=== PATIENT | male | born 1935 | race Caucasian/White ===

== ENCOUNTER → 2019-08-27 11:04 | Outpatient (CLI) | payer MEDICARE, SELFPAY ==
[2016-03-15 00:27] VITALS: BMI 30.1
--- NOTE | 2019-08-27 11:11 | RAD_ITS ---
STUDY: BONE LENGTH STUDIES. REASON FOR EXAM: Male, 83 years old. leg length difference TECHNIQUE: Single composite view of the bilateral lower extremities. COMPARISON: None. FINDINGS: Bilateral total knee arthroplasty. Mild degenerative arthrosis of the hips. Mild bilateral genu varum. The total length of the right lower extremity is 94 cm from the apex of the femoral head to the tibial plafond. The total length of the left lower extremity is 93 cm from the apex of the femoral head to the tibial plafond. RAD/Bone Length IMPRESSION: Right leg 1 cm longer than the left leg. Electronically Signed: Bernarda Ramos MD at 22:24 EDT , Service support ,
== END ==
PROVIDERS: PCP Family Medicine; Referring Provider Podiatrist; Visit Provider Podiatrist
DX: M21.70 Unequal limb length (acquired), unspecified site (principal)
CPT/HCPCS: 77073

== ENCOUNTER 2020-03-04 10:18 | Inpatient (IN) | payer MEDICARE, SELFPAY ==
[2020-03-04] VITALS (18 sets, daily range): BP systolic 109–156; BP diastolic 55–94; PULSE 74–93; RESP 12–40; TEMP 36.1–39.6; O2SAT 84–100; BMI 30.4; BMI 28.9
--- NOTE | 2020-03-04 10:34 | EKG12_ITS ---
Test Reason : CP Blood Pressure : / mmHG Vent. Rate : 095 BPM Atrial Rate : 095 BPM P-R Int : 168 ms QRS Dur : 164 ms QT Int : 404 ms P-R-T Axes : 035 -88 019 degrees QTc Int : 507 ms Normal sinus rhythm Left axis deviation Right bundle branch block Inferior infarct , age undetermined Abnormal ECG Confirmed by MILTON SPANGLER, SHANTI ([id number]), scientific publications editor MEGGAN MYRICK ([id number]) on 03/10/2020 8:47:21 AM Referred By: TOMMY Confirmed By:SHANTI ROSE MD
--- NOTE | 2020-03-04 10:37 | ED.VIS.DYS ---
History of Present Illness Informant: Patient, EMS Onset: Days - a few days Activity at onset: Exertion, Light Activity, Rest, Sleep Timing: Continuous Quality: Dyspnea on exertion, Orthopnea Current Severity: Severe Maximum Severity: Severe Worsened by: Coughing, Exertion, Lying flat Relieved by: Oxygen Associated Symptoms: Chills, Cough, Fever, Sore throat, Sweats. Negative for: Bloody Sputum, Clear sputum, Ear pain, Green sputum, Post-nasal drainage, Rhinorrhea, White sputum, Yellow sputum Chest Pain: Tightness Narrative: 84-year-old male history of CAD and COPD presents with shortness of breath. He was hypoxic on arrival 84% on room air and placed on 4 L nasal cannula. He is not normally on oxygen. Started to have a fever and chills this morning with rigors. He feels generally weak and tired. No vomiting or diarrhea. No hemoptysis. Denies any sick contacts recent travel or surgery or history of DVT or PE. He has COPD but he states he is never qualified for oxygen. This is been progressively worsening over the last several days. Was sent in from his PCP office today Prior similar symptoms: No Recent Illness/Hospitalization: No <Buddy Brock - Last Filed: 03/04/20 15:18> <Sumit Tompkins - Last Filed: 03/04/20 15:59> Chief Complaint: General Illness Past Medical History Prior records reviewed: Yes Past Medical History: - - Hypertension hyperlipidemia COPD CAD Surgical History: coronary bypass surgery Lives: With Family Smoking Status: Never smoker Alcohol: None Drugs: None - Family History Sibling Family History: Reports: No pertinent history <Buddy Brock - Last Filed: 03/04/20 15:18> <Sumit Tompkins - Last Filed: 03/04/20 15:59> - Allergies and Home Meds Allergies/Adverse Reactions: Allergies No Known Allergies Allergy (Verified 03/14/16 20:08) Review of Systems General: Reports: Chills, Fever. Denies: Sweats Eyes: Denies: Visual changes - bilaterally, Diplopia ENT: Denies: Rhinorrhea, Sore throat Cardiovascular: Denies: Chest pain, Palpitations, Heart racing Respiratory: Reports: Dyspnea, Cough, Dyspnea on exertion, Orthopnea. Denies: Sputum, Paroxysmal nocturnal dyspnea Gastrointestinal: Denies: Abdominal pain, Nausea, Vomiting, Diarrhea, Melena, Hematochezia Genitourinary: Denies: Dysuria, Hematuria, Frequency Musculoskeletal: Reports: Myalgias. Denies: Arthralgias, Neck pain, Back pain, Swelling, Extremity Pain Skin: Denies: Rash, Abscess, Abrasions, Wounds Neurological: Denies: Headache, Weakness, Numbness <Buddy Brock - Last Filed: 03/04/20 15:18> Physical Exam Vital Signs/Narrative: Vital Signs Temp Pulse Resp BP Pulse Ox 03/04/20 10:19 103.2 F H 93 40 H 156/94 H 84 Inital Vital Signs reviewed: Yes General: Well nourished, Well developed, No Acute Distress Head: Normocephalic, Atraumatic Eyes: Perrl, EOMI ENT: Moist mucous membranes, No rhinorrhea Neck: Supple, Nontender Cardiovascular: Regular rate, Regular rhythm, No murmurs Respiratory: No distress, CTA bilaterally, Diminished, Decreased Air Movement Abdomen: Soft, Nontender, Nondistended, Normal bowel sounds Back: Nontender, Normal Inspection Extremities: Nontender, No edema. Negative for: Tenderness, Edema, Calf Tenderness Skin: Normal color, No rash Neurological: Alert, Oriented x3, Cranial nerves II-XII grossly intact, Normal Strength, Normal Sensation Psychological: Normal affect, Normal Mood <Buddy Brock - Last Filed: 03/04/20 15:18> Vital Signs/Narrative: Vital Signs Temp Pulse Resp BP Pulse Ox 03/04/20 14:03 97.7 F L 82 20 H 139/76 H 97 03/04/20 13:13 83 20 H 154/77 H 96 03/04/20 12:03 99.5 F H 82 30 H 142/78 H 94 <Sumit Tompkins - Last Filed: 03/04/20 15:59> Diagnostic/Tx/Re-eval Chest X-Ray - ED: 1 View, Right Infiltrate, Left Infiltrate Impressions Chest X-Ray 03/04/20 11:25 IMPRESSION: Small left pleural effusion with bibasilar infiltrates worse on the left side. Electronically Signed: Smith Rosenbaum, at 12:07 EST , Service support , 03/04/20 11:25 Chest 1 View (Portable) [RAD] Stat Laboratory Results 03/04/20 03/04/20 03/04/20 10:30 10:30 10:30 WBC 12.1 H RBC 4.53 L Hgb 13.4 Hct 43.6 MCV 96.2 H MCH 29.6 MCHC 30.7 L RDW Std Deviation 47.8 H RDW Coeff of Becca 13.4 Plt Count 220 MPV 10.7 Immature Gran % (Auto) 0.600 Neut % (Auto) 89.3 H Lymph % (Auto) 4.8 L [place] % (Auto) 5.1 Eos % (Auto) 0.0 Baso % (Auto) 0.2 Absolute Neuts (auto) 10.8 H Absolute Lymphs (auto) 0.58 L Nucleated RBC % 0 Differential Comment COMMENT PT 14.3 INR 1.2 APTT 32.5 Sodium 139 Potassium 3.8 Chloride 100 Carbon Dioxide 34.0 H Anion Gap 5 BUN 40 H Creatinine 1.79 H Estim Creat Clear Calc 30.25 Est GFR (MDRD) Af Amer 47 L Est GFR (MDRD) Non-Af 39 L BUN/Creatinine Ratio 22.3 H Glucose 139 H Lactic Acid Calcium 8.6 Total Bilirubin 0.70 AST 41 H ALT 39 Alkaline Phosphatase 62 Troponin I 0.072 H Total Protein 7.4 Albumin 3.3 Globulin 4.1 Albumin/Globulin Ratio 0.8 L COVID-19 (NILDA) 03/04/20 03/04/20 11:05 11:54 WBC RBC Hgb Hct MCV MCH MCHC RDW Std Deviation RDW Coeff of Becca Plt Count MPV Immature Gran % (Auto) Neut % (Auto) Lymph % (Auto) [place] % (Auto) Eos % (Auto) Baso % (Auto) Absolute Neuts (auto) Absolute Lymphs (auto) Nucleated RBC % Differential Comment PT INR APTT Sodium Potassium Chloride Carbon Dioxide Anion Gap BUN Creatinine Estim Creat Clear Calc Est GFR (MDRD) Af Amer Est GFR (MDRD) Non-Af BUN/Creatinine Ratio Glucose Lactic Acid 1.4 Calcium Total Bilirubin AST ALT Alkaline Phosphatase Troponin I Total Protein Albumin Globulin Albumin/Globulin Ratio COVID-19 (NILDA) Detected - Rhythm Strip Rhythm Strip: Sinus Rhythm Rate: 99 Ectopy: None - EKG Initial EKG Interpretation: Sinus Rhythm, No Acute Injury Pattern, RBBB Prior: Unchanged Treatment - Dyspnea: Oxygen - Medical Decision Making On arrival the patient was febrile and hypoxic. He was placed on 4 L nasal cannula with improvement of his pulse ox. He was given IV fluids and Tylenol. Septic work-up was pursued. Laboratory work-up was remarkable for an elevated troponin, acute kidney injury, chest x-ray showed bilateral infiltrates and his Covid was positive. Patient was given fluids he is hemodynamically stable he will require admission. Family updated. <Buddy Brock - Last Filed: 03/04/20 15:18> - Medical Decision Making Patient was seen with me. I did a [id number] examination with the patient. Patient presents with shortness of breath and weakness that has been getting worse. Patient is a poor historian. Patient is nonverbal. Patient was noted to be hypoxic prior to arrival. EMS placed patient on oxygen. Patient is febrile here. Patient is hypoxic. Patient was placed on 4 L nasal cannula. Patient's oxygen improved. Oral mucosa is pink and moist. Neck is supple. Trachea is midline. There is no JVD or lymphadenopathy. Heart was regular rate and rhythm. Lungs are diminished bilaterally. There is poor respiratory effort noted. Abdomen is soft. Bowel sounds are normal. Cranial nerves II through XII are grossly intact. There are no apparent focal motor or sensory deficits noted. Patient was given IV fluids and Tylenol. Metabolic profile showed acute kidney injury. Troponin was also slightly elevated. Portable 1 view chest x-ray was obtained. On my interpretation, it shows bilateral lower lobe infiltrates. Radiologist also interpreted the x-ray and agrees. COVID-19 test was obtained and was positive. Case was discussed with the hospitalist. Patient will be admitted to the hospital. Family was notified. Family agrees. <Sumit Tompkins - Last Filed: 03/04/20 15:59> ED Disposition <Buddy Brock - Last Filed: 03/04/20 15:18> <Sumit Tompkins - Last Filed: 03/04/20 15:59> - Plan for ED Patient: Disposition: Acute Care Hospital [facility] Diagnosis: Pneumonia due to COVID-19 virus, Respiratory failure, FREDY (acute kidney injury)
[2020-03-04 11:01] LABS: Absolute Lymphocyte Count 0.58 X10^3/uL (0.83-4.51); Absolute Neutrophil Count 10.8 X10^3/uL (2.0-7.7); Basophil# 0.02 X10^3/uL; Basophil% 0.2 % (0-1); Hematocrit 43.6 % (40-54); Hemoglobin 13.4 g/dL (13.0-16.5); Lymphocyte # 0.58 X10^3/ul (4.0); Lymphocyte % 4.8 % (19-41); Mean Corp Hgb Conc 30.7 g/dL (32-36); Mean Corpuscular Hgb 29.6 pg (27.0-32.0); Mean Corpuscular Volume 96.2 fL (80-94); Mean Platelet Vol. 10.7 fl (6.2-12.0); Monocyte# 0.62 X10^3/uL; Monocyte% 5.1 % (0-10); NRBC Flagged by Analyzer 0 % (0-5); Neutrophil # 10.78 X10^3/uL (2.7-7.7); Neutrophil % 89.3 % (47-70); POSITIVE DIFFERENTIAL YES; Platelet Count 220 K/mm3 (150-450); RBC Distribution Width CV 13.4 % (11.6-14.6); RBC Distribution Width SD 47.8 fl (35.1-43.9); Red Blood Count 4.53 M/mm3 (4.6-6.2); White Blood Count 12.1 K/mm3 (4.4-11.0)
[2020-03-04 11:02] LABS: Differential Indicated SCAN CRITERIA MET
[2020-03-04 11:09] LABS: International Normalized Ratio 1.2; Prothrombin Time (Protime)PT. 14.3 SECONDS (11.7-14.9)
[2020-03-04 11:10] LABS: Partial Thromboplast Time 32.5 Seconds (24.1-36.2)
[2020-03-04] MEDS: Acetaminophen 500 MG Tablet 1000 MG PO (11:14)
[2020-03-04] MEDS: 0.9% Normal Saline 1,000 ML 999 ML IV (11:14)
[2020-03-04 11:16] LABS: ALB/GLOB Ratio 0.8 RATIO (0.9-2.4); AST(SGOT) 41 U/L (15-37); Alanine Aminotransfer ALT/SGPT 39 U/L (16-61); Albumin, Serum 3.3 g/dL (3.2-5.0); Alkaline Phosphatase 62 U/L (45-117); Anion Gap 5 (5-15); BUN 40 mg/dL (7-18); BUN/Creat Ratio 22.3 RATIO (10-20); Calcium,Total 8.6 mg/dL (8.5-10.1); Chloride 100 mmol/L (98-107); Creatinine, Serum 1.79 mg/dL (0.70-1.30); EST Glomerular Filtration Rate 39 mL/min (>60); Est Glom Filt Rate - Afr Amer 47 mL/min (>60); Estimated Creatinine Clearance 30.25 ml/min; Globulin 4.1 g/dL (2.2-4.2); Glucose 139 mg/dL (74-106); Potassium 3.8 mmol/L (3.5-5.1); Protein, Total 7.4 g/dL (6.4-8.2); Sodium Level 139 mmol/L (136-145)
--- NOTE | 2020-03-04 11:25 | RAD_ITS ---
STUDY: X-RAY CHEST REASON FOR EXAM: Male, 84 years old. LOW PULSE OX AND DECREASED MENTAL STATUS. COUGH. TECHNIQUE: Single AP portable view of the chest. COMPARISON: None. FINDINGS: EKG electrodes are seen. There is a small left pleural effusion with left basilar infiltrate. Mild right lower lobe infiltrate as well. There is borderline cardiomegaly. Left-sided dual-chamber pacemaker seen. Normal mediastinum and alberto. Normal visualized pulmonary arteries. There is atherosclerotic tortuosity of the aortic arch and descending thoracic aorta. There are diffuse degenerative changes of the visualized thoracic spine. There is degenerative osteoarthritis of the bilateral shoulders. There is no demonstrated abnormality of the visualized soft tissue structures of the upper abdomen. RAD/Chest 1 View (Portable) IMPRESSION: Small left pleural effusion with bibasilar infiltrates worse on the left side. Electronically Signed: Smith Rosenbaum, at 12:07 EST , Service support ,
[2020-03-04 12:19] LABS: Lactic Acid 1.4 mmol/L (0.4-1.9)
--- NOTE | 2020-03-04 14:20 | PCM.HP.STD ---
Problem List (1) Pneumonia due to COVID-19 virus Status: Acute (2) FREDY (acute kidney injury) Status: Acute (3) Acute respiratory failure with hypoxia Status: Acute (4) CAD (coronary artery disease) Status: Chronic Qualifiers: Coronary Disease-Associated Artery/Lesion type: unspecified vessel or lesion type [place] vs. transplanted heart: unspecified whether [place] or transplanted heart Associated angina: angina presence unspecified Qualified Code(s): I25.10 - Atherosclerotic heart disease of [place] coronary artery without angina pectoris (5) Dementia Status: Chronic Qualifiers: Dementia type: unspecified type Dementia behavioral disturbance: without behavioral disturbance Qualified Code(s): F03.90 - Unspecified dementia without behavioral disturbance (6) Diabetes mellitus, type II Status: Suspected Qualifiers: Diabetes mellitus senior living insulin use: unspecified senior living insulin use status Diabetes mellitus complication status: with other specified complication Qualified Code(s): E11.69 - Type 2 diabetes mellitus with other specified complication (7) Seizure disorder Status: Chronic (8) HTN (hypertension) Status: Chronic Qualifiers: Hypertension type: essential hypertension Qualified Code(s): I10 - Essential (primary) hypertension (9) HLD (hyperlipidemia) Status: Chronic Qualifiers: Hyperlipidemia type: unspecified Qualified Code(s): E78.5 - Hyperlipidemia, unspecified (10) Former tobacco use Status: Suspected (11) Chronic obstructive pulmonary disease (COPD) Status: Suspected Qualifiers: COPD type: unspecified COPD Qualified Code(s): J44.9 - Chronic obstructive pulmonary disease, unspecified (12) JAMIE (obstructive sleep apnea) Status: Chronic (13) Depression with anxiety Status: Chronic History of Present Illness Date of Admission: 03/04/20 Chief Complaint: Confusion, dyspnea, hypoxia, cough. The patient is an 84 y/o M w/ PMHx: Chronic COPD not on home O2, ? CAD s/p PA s/p pacemaker placement, Seizure disorder (Focal), ? Former Tobacco use, Dementia unclear type with unclear behavioral disturbance history, HTN, HLD, JAMIE, Depression and Anxiety, Diabetes mellitus type II who presents to the [facility] ED on 03/04/20 from his physician office secondary to worsened mental status with increased confusion, hypoxia, cough, worse with exertion and laying flat with fever, chills, rigors per description, sore throat, diaphoresis/sweats and concurrent chest tightness. He notes significant fatigue and malaise, worse upon awakening this AM. The patient per report has been around a friend who also had COVID. Work-up in the ED included initial T 103.2, heart rate 93, BP 156/94, respiratory rate 40, initially 84% on room air with improvement to 96% on 4 L nasal cannula, CBC with WC 12.1, hemoglobin 13.4, platelet 220 with left shift and lymphopenia concurrently, unremarkable coags, CMP with carbon oxide 34, BUN/creatinine 40/1.79, glucose 139, lactic acid 1.4, AST/LT 41/39, troponin 0.072, blood culture x2 pending per ED, chest x-ray with small left pleural effusion with bibasilar infiltrates worse on the left side, EKG with SR with RBBB similar to prior, Covid positive per ED PCR testing. Past Medical History Past Medical History (Chronic Problems): Chronic Problems CAD (coronary artery disease) (Chronic) Dementia (Chronic) Seizure disorder (Chronic) HTN (hypertension) (Chronic) HLD (hyperlipidemia) (Chronic) JAMIE (obstructive sleep apnea) (Chronic) Depression with anxiety (Chronic) Allergies No Known Allergies Allergy (Verified 03/14/16 20:08) Home Medications: Ambulatory Orders Medication Instructions Recorded Lamotrigine 100 mg PO BID 03/04/20 Surgical History: - - Back surgery, pacemaker secondary to some syncopal history, shoulder surgery with rotator cuff repair, bilateral total knee replacement. Psychiatric History: Anxiety, Depression Lives: Alone Smoking Status: Never smoker - Patient listed is a tobacco user in the past however daughter Tala notes that he was never a smoker. Tobacco Use: Non-smoker Alcohol: None Drugs: None - *Family History Sibling History Items: Hypertension Paternal History Items: Hypertension Review of Systems Unable to obtain accurate/complete ROS d/t: Encephalopathic, information per family. Comment: ROS per family with increased confusion, hypoxia, cough, worse with exertion and laying flat with fever, chills, rigors per description, sore throat, diaphoresis/sweats and concurrent chest tightness. VTE Information - Inpt Only VTE Present on Admission: No VTE Mechan Device Prophylaxis: SCD's VTE Pharm Prophylaxis ordered?: Yes Patient Problems: Active and Suspected Problems Pneumonia due to COVID-19 virus (Acute) Respiratory failure (Acute) FREDY (acute kidney injury) (Acute) Subjective: Patient seated upright in ED bed, fatigued, lethargic, arousable to stimuli but falls quickly back asleep, some increased respiratory rate and accessory muscle usage. Objective: Physical Examination: General: Awakens somewhat to stimuli, not alert, not able to answer orientation questions, not able to follow commands, extremely fatigued, seated upright in ED bed, maintaining saturations but increased respiratory rate and some accessory muscle usage noted, evident distress. Skin: normal color, turgor, no icterus, cyanosis set occasional staged ecchymoses and right mckeon scab, no erythema associated. HEENT: AT/NC, EOM unable to be assessed well given lethargic status, PERRLA, dry MM, no carotid bruits or JVD noted. Lungs: Diminished breath sounds, greater bases, poor effort, increased respiratory rate and some accessory muscle usage with evident mild distress, no obvious rales, ronchi or wheezing. Heart: Regular rate and rhythm/paced; no gallop, rub audible. Abdomen: soft, obese, NTTP, ND, normal BS, no HSM. Extremities: no cyanosis, clubbing, or edema, see skin. Neurological: Awakens somewhat to stimuli, not alert, not able to answer orientation questions, not able to follow commands, extremely fatigued, seated upright in ED bed, maintaining saturations but increased respiratory rate and some accessory muscle usage noted, evident distress; cognitive function not baseline intact; pupils equally reactive to light and accomodation; cranial nerves 2/but appear grossly normal, moving all 4 extremities to stimuli but difficult assessment given lethargy, sedate status, strength accordingly severely globally decreased. Psychiatric: affect appears fatigued, lethargic, evident respiratory distress, no acute evidence of depressive or anxiety feelings. - Physical Exam Vitals/I&O's: Vital Signs Temp Pulse Resp BP Pulse Ox 97.7 F L 82 20 H 139/76 H 97 03/04/20 14:03 03/04/20 14:03 03/04/20 14:03 03/04/20 14:03 03/04/20 14:03 Oxygen Flow Rate (L/min) 4 Oxygen Delivery Method Nasal Cannula Weight: 199 lb 15.348 oz Body Mass Index (BMI) 30.4 Laboratory Results 03/04/20 10:30: WBC 12.1 H, RBC 4.53 L, Hgb 13.4, Hct 43.6, MCV 96.2 H, MCH 29.6, MCHC 30.7 L, RDW Std Deviation 47.8 H, RDW Coeff of Becca 13.4, Plt Count 220, MPV 10.7, Immature Gran % (Auto) 0.600, Neut % (Auto) 89.3 H, Lymph % (Auto) 4.8 L, [place] % (Auto) 5.1, Eos % (Auto) 0.0, Baso % (Auto) 0.2, Absolute Neuts (auto) 10.8 H, Absolute Lymphs (auto) 0.58 L, Nucleated RBC % 0, Differential Comment COMMENT 03/04/20 10:30: PT 14.3, INR 1.2, APTT 32.5 03/04/20 10:30: Sodium 139, Potassium 3.8, Chloride 100, Carbon Dioxide 34.0 H, Anion Gap 5, BUN 40 H, Creatinine 1.79 H, Estim Creat Clear Calc 30.25, Est GFR (MDRD) Af Amer 47 L, Est GFR (MDRD) Non-Af 39 L, BUN/Creatinine Ratio 22.3 H, Glucose 139 H, Calcium 8.6, Total Bilirubin 0.70, AST 41 H, ALT 39, Alkaline Phosphatase 62, Troponin I 0.072 H, Total Protein 7.4, Albumin 3.3, Globulin 4.1, Albumin/Globulin Ratio 0.8 L 03/04/20 11:05: Lactic Acid 1.4 03/04/20 11:54: COVID-19 (NILDA) Detected Assessment/Plan All Active Problems Pneumonia due to COVID-19 virus (Acute) Respiratory failure (Acute) FREDY (acute kidney injury) (Acute) Acute respiratory failure with hypoxia (Acute) Cellulitis of right lower extremity (Acute) The patient is an 84 y/o M w/ PMHx: Chronic COPD not on home O2, ? CAD s/p PA s/p pacemaker placement, Seizure disorder (Focal), ? Former Tobacco use, Dementia unclear type with unclear behavioral disturbance history, HTN, HLD, JAMIE, Depression and Anxiety, Diabetes mellitus type II who presents to the [facility] ED on 03/04/20 from his physician office secondary to worsened mental status with increased confusion, hypoxia, cough, worse with exertion and laying flat with fever, chills, rigors per description, sore throat, diaphoresis/sweats and concurrent chest tightness. 1. Acute Encephalopathy secondary to Acute Hypoxic Respiratory Failure secondary to Bilateral Pneumonia secondary to Acute Viral Syndrome, COVID-19 complicated by underlying Chronic COPD: Will admit to the COVID unit, will maintain on oxygen with wean as tolerated to room air, continue MDI inhaler, PRN albuterol, HOB, IS parameters w/ pending sputum cultures, respiratory viral panel and urine antigens, will obtain D-dimer, procalcitonin, CRP, CPK, Ferritin, LDH, cycle cardiac enzymes, repeat EKG in AM given concurrent chest pain, continue supportive care including q 2 hour turning including prone given no prone bed availability and judicious hydration, closely monitor for worsening status for ARDS and multiorgan failure, consult infectious disease, obtain T+S. 2. Acute kidney injury versus underlying CKD unclear stage: Secondary to acute presentation versus chronic, unclear as last labs for comparison 2016. Admission BUN/Cr 40/1.79, prior baseline creatinine noted to be 0.9-1.1 but these labs were from 2016. Will hydrate, hold nephrotoxic medications and repeat chemistry in AM. If no improvement would plan FeNa assessment. 3. CAD: Patient with history of concurrent PA and status post pacemaker status, will maintain on cafeteria monitor, initial cardiac enzyme 0.072, planning to cycle and repeat EKG as noted above, continue aspirin, clarifying if on beta-leonarda, LYNN inhibitor/ARB, statin therapy. 4. Dementia unclear type with unclear behavioral disturbance history: Complicates presentation, PT/OT/case management consultation for discharge planning, fall precautions and aspiration precautions. 5. Diabetes mellitus type II: Clarifying regimen, from current list not on medications, will obtain HgBA1c and in interim maintain on ADA diet, accu checks w/ ISS. 6. Seizure disorder: Patient with history of focal seizures, continue home lamotrigine regimen, fall precautions. 7. Depression and Anxiety: Clarify medication, resume once obtained and appropriate. 8. Hypertension: Clarifying medication, resume once obtained and appropriate, PRN hydralazine. 9. Hyperlipidemia: Clarify medication, unclear if patient's on statin. 10. ? Former tobacco use: Encourage continued tobacco cessation. 11. JAMIE: We will presume BiPAP nightly. 12. DVT prophylaxis: SCDs, Lovenox. 13. CODE status: Patient HCPKRISTAN is his daughter Tala who can be contacted at [phone] and living will is currently in place. Discussed CODE status at length including difference between FULL code, DNR-CCA and DNR-CC status. Following discussions about the differences in these status, requested DNR-CCA, no intubation. Advanced Care Planning Face to Face Time: 16 minutes. Inpatient E&M: 82111 Init Hosp L3 Procedures: 30765 Advncd Care Plan addl 30 Min
--- NOTE | 2020-03-04 17:01 | PCS.PANDOC ---
PANDEMIC DOCUMENTATION INITIATED: Date: 03/04/2020 Time: 1900
[2020-03-04 17:19] LABS: D-Dimer Quantitative (DVT/PE) 2.73 FEU/ug/m (0.27-0.49)
[2020-03-04 17:23] LABS: Ferritin 1410 ng/mL (26-388); LDH 344 U/L (87-241); Magnesium 2.4 mg/dL (1.6-2.6)
[2020-03-04 17:24] LABS: Procalcitonin 0.36 ng/mL (0.00-0.09)
[2020-03-04 17:25] LABS: Allen Test Positive; Base Excess 5 mmol/L (-2 to +2); Bicarbonate 32.7 mmol/L (22-26); Blood Gas Specimen Type ART; O2 Delivery Device Cannula; PO2 70 mmHG (75-100); SITE R Radial; SO2 88 % (95-99); Total Carbon Dioxide 35 mmol/L
--- NOTE | 2020-03-04 17:26 | CT_ITS ---
STUDY: CTA CHEST REASON FOR EXAM: Male, 84 years old. Hypoxia bilateral pneumonia RADIATION DOSAGE (If Supplied By Facility): CTDIvol = ( 12.66 ) mGy, DLP = ( 515.21 ) mGycm TECHNIQUE: The examination was performed with the intravenous administration of IV 100mL Isovue-370. Post-processing of the angiographic images was performed, with multiplanar reformation and 3D reconstruction. Individualized dose optimization techniques were used for this CT. COMPARISON: None. FINDINGS: Examination is technically suboptimal. Diagnostic information is available. There is no pulmonary embolism. Pulmonary artery is normal. Aorta is normal. Coronary arteries are severely diseased. There is mild right heart enlargement. Pericardium is normal. Pacemaker leads terminate in the right heart. There are reactive mediastinal lymph nodes. There are bilateral basal consolidations with heterogeneous attenuation and possibly internal calcifications. However, evaluation is technically suboptimal in the lower lobes, in part due to motion and attenuation artifact. There are scattered additional lobar subsegmental groundglass upper lobe opacities. There is a small left pleural effusion. There is no pulmonary edema. Central airways are patent. CT/CTA Chest W/WO Contrast IMPRESSION: 1. No pulmonary embolism 2. Bilateral viral pneumonia. 3. Probably bilateral lower lobe bacterial pneumonia and/or subsegmental collapse, possibly nonacute.. 4. Abnormal attenuation in the lower lung parenchyma. Recommend reevaluation after resolution of acute infectious disease. 5. Severe coronary artery disease. Electronically Signed: Lucrecia Gardner, at 18:29 EST Tel , Service support ,
[2020-03-04 17:30] LABS: Hemoglobin A1c 5.7 % (3.8-5.6)
[2020-03-04] MEDS: 0.9% Normal Saline 1,000 ML 100 ML IV (17:33)
[2020-03-04 18:00] LABS: Bedside Glucose 133 mg/dL (70-110)
--- NOTE | 2020-03-04 19:25 | NURSING ---
ATTEMPTED TO ST CATH FOR URINE SAMPLE- NOT SUCCESSFUL.
--- NOTE | 2020-03-04 20:15 | NURSING ---
REPEAT ABG DONE PER RT AT THIS TIME. VSS. 105/87, 78, 27, 97% BIPAP. 15/8, 35% FIO2. PT IS AWAKE AND ANSWERS QUESTIONS. C/O FEELING COLD
[2020-03-04 20:20] LABS: Base Excess 4 mmol/L (-2 to +2); Bicarbonate 31.7 mmol/L (22-26); Blood Gas Specimen Type ART; FI02 35; O2 Delivery Device BiPAP; PO2 79 mmHG (75-100); SITE R Radial; SO2 93 % (95-99); Total Carbon Dioxide 34 mmol/L; pCO2 72.6 mmHg (35-45); pH 7.25 (7.35-7.45)
--- NOTE | 2020-03-04 20:43 | CPS ---
CRITICAL ABG VALUES ,PCO2 72.[address] LIANG. EXPLAINED HOW I CHANGED THE MODE TO AVAPS TO INCREASE VENTILATION FOR THE PT.
[2020-03-04] MEDS: Albuterol 2.5 MG/3 ML VIAL.NEB. INHALATION (20:46)
[2020-03-04] MEDS: Enoxaparin 30 MG/0.3 ML Syringe SC (21:26)
[2020-03-05] VITALS (35 sets, daily range): BP systolic 87–129; BP diastolic 53–94; PULSE 70–90; RESP 13–35; TEMP 36.9–38.6; O2SAT 90–99
[2020-03-05] MEDS: Acetaminophen 325 MG Tablet 650 MG PO (00:05)
[2020-03-05 02:01] LABS: Bedside Glucose 117 mg/dL (70-110)
[2020-03-05 02:31] LABS: Hematocrit 36.8 % (40-54); Hemoglobin 11.3 g/dL (13.0-16.5); Mean Corp Hgb Conc 30.7 g/dL (32-36); Mean Corpuscular Hgb 29.6 pg (27.0-32.0); Mean Corpuscular Volume 96.3 fL (80-94); Platelet Count 189 K/mm3 (150-450); RBC Distribution Width CV 13.4 % (11.6-14.6); RBC Distribution Width SD 47.8 fl (35.1-43.9); Red Blood Count 3.82 M/mm3 (4.6-6.2); White Blood Count 11.5 K/mm3 (4.4-11.0)
[2020-03-05 02:56] LABS: ALB/GLOB Ratio 0.8 RATIO (0.9-2.4); AST(SGOT) 27 U/L (15-37); Alanine Aminotransfer ALT/SGPT 29 U/L (16-61); Albumin, Serum 2.5 g/dL (3.2-5.0); Alkaline Phosphatase 47 U/L (45-117); Anion Gap 6 (5-15); BUN 46 mg/dL (7-18); BUN/Creat Ratio 28.2 RATIO (10-20); Calcium,Total 7.6 mg/dL (8.5-10.1); Chloride 107 mmol/L (98-107); Creatinine, Serum 1.63 mg/dL (0.70-1.30); EST Glomerular Filtration Rate 43 mL/min (>60); Est Glom Filt Rate - Afr Amer 52 mL/min (>60); Estimated Creatinine Clearance 33.22 ml/min; Globulin 3.2 g/dL (2.2-4.2); Glucose 111 mg/dL (74-106); Potassium 3.7 mmol/L (3.5-5.1); Protein, Total 5.7 g/dL (6.4-8.2); Sodium Level 143 mmol/L (136-145)
[2020-03-05 03:05] LABS: Allen Test Positive; Base Excess 4 mmol/L (-2 to +2); Bicarbonate 30.3 mmol/L (22-26); Blood Gas Specimen Type ART; FI02 50; O2 Delivery Device BiPAP; PEEP 8; PO2 73 mmHG (75-100); RR 14; SITE R Radial; SO2 93 % (95-99); Total Carbon Dioxide 32 mmol/L; Vt 500; pCO2 59.1 mmHg (35-45); pH 7.32 (7.35-7.45)
--- NOTE | 2020-03-05 05:42 | CPS ---
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 I used his right ear and he was 97-100%
--- NOTE | 2020-03-05 05:51 | PCM.CON.CC ---
Reason for Consult Date of Consultation: 03/05/20 Reason for Consultation: Acute hypoxemic respiratory failure secondary to COVID-19 pneumonia History of Present Illness: The patient is an 84-year-old male, with a history as outlined below, who presented to the emergency department on March 04 with altered mentation, hypoxemia, cough, fevers and chills. The patient has a documented history of COPD, unspecified seizure disorder, JAMIE and apparent baseline dementia. The patient did currently have sick contact exposure having been around a friend who tested positive for Covid as well. On presentation to the emergency department, the patient was noted to be febrile with a temperature of 103.2 ?F. The patient was also notably tachypneic and hypoxemic saturating 84% on room air. Laboratory evaluation revealed an elevated white blood cell count to 12,000. D-dimer was elevated to 2.73. Chemistry profile was notable for a bicarbonate of 34 and creatinine of 1.79. Lactate was within normal limits. Troponin was elevated to 0.072. Procalcitonin was noted to be 0.36. Coronavirus PCR was positive. A CTA chest was obtained which showed no evidence for pulmonary embolism. Dense bibasilar consolidations were noted along with multifocal groundglass opacities. Arterial blood gas obtained on 4 L/min revealed a pH of 7.19 with a corresponding PCO2 of 85 and PO2 of 70. The patient was subsequently placed on BiPAP therapy and admitted to the medical intensive care unit for further management. 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 Psychiatric History: Anxiety, Depression Lives: Alone Smoking Status: Never smoker - Patient listed is a tobacco user in the past however daughter Tala notes that he was never a smoker. Tobacco Use: Non-smoker Alcohol: None Drugs: None - *Family History Sibling History Items: Hypertension Paternal History Items: Hypertension Review of Systems Constitutional: Reports: Chills, Fever, Malaise, Fatigue Eyes: Denies: Blurred vision, Double vision HEENT: Reports: Sore Throat Cardiovascular: Denies: Chest Pain, Palpitations Respiratory: Reports: Cough, Shortness of Breath Gastrointestinal: Denies: Abdominal Pain, Nausea, Vomiting Genitourinary: Denies: Dysuria Musculoskeletal: Denies: Joint Pain, Joint Tenderness Skin: Denies: Rash, Wounds Neurological: Reports: Seizures Psychiatric: Denies: Anxiety, Depression, Homicidal Ideations, Suicidal Ideations Hematologic/ Lymphatic: Denies: Easy Bruising, Easy Bleeding Patient Problems: Active and Suspected Problems Pneumonia due to COVID-19 virus (Acute) Respiratory failure (Acute) FREDY (acute kidney injury) (Acute) Acute respiratory failure with hypoxia (Acute) Diabetes mellitus, type II (Suspected) Former tobacco use (Suspected) Chronic obstructive pulmonary disease (COPD) (Suspected) Objective: The patient's most recent lab work, culture data and imaging studies have all been personally reviewed. Coronavirus PCR was positive on March 04. Respiratory viral panel was negative. Strep and urine Legionella antigens were negative. Blood cultures are pending. - Physical Exam Vitals/I&O's: Vital Signs Temp Pulse Resp BP Pulse Ox 99.1 F 70 21 H 89/59 L 96 03/05/20 02:00 03/05/20 04:31 03/05/20 04:31 03/05/20 04:00 03/05/20 04:31 Oxygen Flow Rate (L/min) 4 Oxygen Delivery Method Bi-pap Weight: 190 lb 7.67 oz Body Mass Index (BMI) 28.9 Intake and Output for Last 24 Hours 03/03/20 03/04/20 03/05/20 23:59 23:59 23:59 Intake Total 1000 / 1150 400 / 400 Output Total 0 / 0 Balance 1000 / 1150 400 / 400 General: Alert, Cooperative, - - BiPAP currently in place. HEENT: Atraumatic, Normocephalic Oral: Dry Mucosa Neck: Supple, No Nodes, Trachea Midline Lungs: No rhonchi, No wheeze, No rales, Diminished Cardiovascular: Regular rate, Regular Rhythm Abdomen: Bowel Sounds Present, Soft, Non Tender Extremities: No clubbing, No cyanosis, No edema Skin: No breakdown Musculoskeletal: No Tenderness to Palpation of Joints or Extremities Lymphatic: No Cervical, Supraclavicular, or Inguinal Adenopathy Neurological: - - No focal neurological deficits. The patient is alert and able to answer questions appropriately. Psych/Mental Status: Normal Affect Labs (Last 48 Hours) 03/04/20 03/04/20 03/04/20 10:30 10:30 10:30 WBC 12.1 H RBC 4.53 L Hgb 13.4 Hct 43.6 MCV 96.2 H MCH 29.6 MCHC 30.7 L RDW Std Deviation 47.8 H RDW Coeff of Becca 13.4 Plt Count 220 MPV 10.7 Immature Gran % (Auto) 0.600 Neut % (Auto) 89.3 H Lymph % (Auto) 4.8 L [place] % (Auto) 5.1 Eos % (Auto) 0.0 Baso % (Auto) 0.2 Absolute Neuts (auto) 10.8 H Absolute Lymphs (auto) 0.58 L Nucleated RBC % 0 Differential Comment COMMENT PT 14.3 INR 1.2 APTT 32.5 D-Dimer Quant (PE/DVT) Specimen Type Sample Site pH Bicarbonate Actual Total CO2 Base Excess O2 Saturation O2 % ABG pCO2 ABG pO2 Binu Test Respiration Rate O2 Delivery Device Liter Flow Tidal Volume POC PEEP Sodium 139 Potassium 3.8 Chloride 100 Carbon Dioxide 34.0 H Anion Gap 5 BUN 40 H Creatinine 1.79 H Estim Creat Clear Calc 30.25 Est GFR (MDRD) Af Amer 47 L Est GFR (MDRD) Non-Af 39 L BUN/Creatinine Ratio 22.3 H Glucose 139 H Hemoglobin A1c Lactic Acid Calcium 8.6 Magnesium Ferritin Total Bilirubin 0.70 AST 41 H ALT 39 Alkaline Phosphatase 62 Lactate Dehydrogenase Troponin I 0.072 H C-React Prot Ext Range Total Protein 7.4 Albumin 3.3 Globulin 4.1 Albumin/Globulin Ratio 0.8 L Procalcitonin COVID-19 (NILDA) POC Glucose Blood Type Antibody Screen 03/04/20 03/04/20 03/04/20 10:30 10:30 10:30 WBC RBC Hgb Hct MCV MCH MCHC RDW Std Deviation RDW Coeff of Becca Plt Count MPV Immature Gran % (Auto) Neut % (Auto) Lymph % (Auto) [place] % (Auto) Eos % (Auto) Baso % (Auto) Absolute Neuts (auto) Absolute Lymphs (auto) Nucleated RBC % Differential Comment PT INR APTT D-Dimer Quant (PE/DVT) 2.73 H* Specimen Type Sample Site pH Bicarbonate Actual Total CO2 Base Excess O2 Saturation O2 % ABG pCO2 ABG pO2 Binu Test Respiration Rate O2 Delivery Device Liter Flow Tidal Volume POC PEEP Sodium Potassium Chloride Carbon Dioxide Anion Gap BUN Creatinine Estim Creat Clear Calc Est GFR (MDRD) Af Amer Est GFR (MDRD) Non-Af BUN/Creatinine Ratio Glucose Hemoglobin A1c 5.7 H Lactic Acid Calcium Magnesium 2.4 Ferritin 1410 H Total Bilirubin AST ALT Alkaline Phosphatase Lactate Dehydrogenase 344 H Troponin I C-React Prot Ext Range 225.00 H Total Protein Albumin Globulin Albumin/Globulin Ratio Procalcitonin COVID-19 (NILDA) POC Glucose Blood Type Antibody Screen 03/04/20 03/04/20 03/04/20 10:30 11:05 11:54 WBC RBC Hgb Hct MCV MCH MCHC RDW Std Deviation RDW Coeff of Becca Plt Count MPV Immature Gran % (Auto) Neut % (Auto) Lymph % (Auto) [place] % (Auto) Eos % (Auto) Baso % (Auto) Absolute Neuts (auto) Absolute Lymphs (auto) Nucleated RBC % Differential Comment PT INR APTT D-Dimer Quant (PE/DVT) Specimen Type Sample Site pH Bicarbonate Actual Total CO2 Base Excess O2 Saturation O2 % ABG pCO2 ABG pO2 Binu Test Respiration Rate O2 Delivery Device Liter Flow Tidal Volume POC PEEP Sodium Potassium Chloride Carbon Dioxide Anion Gap BUN Creatinine Estim Creat Clear Calc Est GFR (MDRD) Af Amer Est GFR (MDRD) Non-Af BUN/Creatinine Ratio Glucose Hemoglobin A1c Lactic Acid 1.4 Calcium Magnesium Ferritin Total Bilirubin AST ALT Alkaline Phosphatase Lactate Dehydrogenase Troponin I C-React Prot Ext Range Total Protein Albumin Globulin Albumin/Globulin Ratio Procalcitonin 0.36 H COVID-19 (NILDA) Detected POC Glucose Blood Type Antibody Screen 03/04/20 03/04/20 03/04/20 17:13 17:14 17:30 WBC RBC Hgb Hct MCV MCH MCHC RDW Std Deviation RDW Coeff of Becca Plt Count MPV Immature Gran % (Auto) Neut % (Auto) Lymph % (Auto) [place] % (Auto) Eos % (Auto) Baso % (Auto) Absolute Neuts (auto) Absolute Lymphs (auto) Nucleated RBC % Differential Comment PT INR APTT D-Dimer Quant (PE/DVT) Specimen Type ART Sample Site R Radial pH 7.19 L* Bicarbonate Actual 32.7 H Total CO2 35 Base Excess 5 H O2 Saturation 88 L O2 % ABG pCO2 85.0 H* ABG pO2 70 L Binu Test Positive Respiration Rate O2 Delivery Device Cannula Liter Flow 4.0 Tidal Volume POC PEEP Sodium Potassium Chloride Carbon Dioxide Anion Gap BUN Creatinine Estim Creat Clear Calc Est GFR (MDRD) Af Amer Est GFR (MDRD) Non-Af BUN/Creatinine Ratio Glucose Hemoglobin A1c Lactic Acid Calcium Magnesium Ferritin Total Bilirubin AST ALT Alkaline Phosphatase Lactate Dehydrogenase Troponin I C-React Prot Ext Range Total Protein Albumin Globulin Albumin/Globulin Ratio Procalcitonin COVID-19 (NILDA) POC Glucose 133 H Blood Type A POSITIVE Antibody Screen NEGATIVE 03/04/20 03/04/20 03/04/20 17:45 20:15 21:20 WBC RBC Hgb Hct MCV MCH MCHC RDW Std Deviation RDW Coeff of Becca Plt Count MPV Immature Gran % (Auto) Neut % (Auto) Lymph % (Auto) [place] % (Auto) Eos % (Auto) Baso % (Auto) Absolute Neuts (auto) Absolute Lymphs (auto) Nucleated RBC % Differential Comment PT INR APTT D-Dimer Quant (PE/DVT) Specimen Type ART Sample Site R Radial pH 7.25 L Bicarbonate Actual 31.7 H Total CO2 34 Base Excess 4 H O2 Saturation 93 L O2 % 35 ABG pCO2 72.6 H* ABG pO2 79 Binu Test Respiration Rate O2 Delivery Device BiPAP Liter Flow Tidal Volume POC PEEP Sodium Potassium Chloride Carbon Dioxide Anion Gap BUN Creatinine Estim Creat Clear Calc Est GFR (MDRD) Af Amer Est GFR (MDRD) Non-Af BUN/Creatinine Ratio Glucose Hemoglobin A1c Lactic Acid Calcium Magnesium Ferritin Total Bilirubin AST ALT Alkaline Phosphatase Lactate Dehydrogenase Troponin I 0.054 H 0.052 H C-React Prot Ext Range Total Protein Albumin Globulin Albumin/Globulin Ratio Procalcitonin COVID-19 (NILDA) POC Glucose Blood Type Antibody Screen 03/05/20 03/05/20 03/05/20 01:42 02:25 02:25 WBC 11.5 H RBC 3.82 L Hgb 11.3 L Hct 36.8 L MCV 96.3 H MCH 29.6 MCHC 30.7 L RDW Std Deviation 47.8 H RDW Coeff of Becca 13.4 Plt Count 189 MPV 10.0 Immature Gran % (Auto) Neut % (Auto) Lymph % (Auto) [place] % (Auto) Eos % (Auto) Baso % (Auto) Absolute Neuts (auto) Absolute Lymphs (auto) Nucleated RBC % Differential Comment PT INR APTT D-Dimer Quant (PE/DVT) Specimen Type Sample Site pH Bicarbonate Actual Total CO2 Base Excess O2 Saturation O2 % ABG pCO2 ABG pO2 Binu Test Respiration Rate O2 Delivery Device Liter Flow Tidal Volume POC PEEP Sodium 143 Potassium 3.7 Chloride 107 Carbon Dioxide 30.0 Anion Gap 6 BUN 46 H Creatinine 1.63 H Estim Creat Clear Calc 33.22 Est GFR (MDRD) Af Amer 52 L Est GFR (MDRD) Non-Af 43 L BUN/Creatinine Ratio 28.2 H Glucose 111 H Hemoglobin A1c Lactic Acid Calcium 7.6 L Magnesium Ferritin Total Bilirubin 0.60 AST 27 ALT 29 Alkaline Phosphatase 47 Lactate Dehydrogenase Troponin I C-React Prot Ext Range Total Protein 5.7 L Albumin 2.5 L Globulin 3.2 Albumin/Globulin Ratio 0.8 L Procalcitonin COVID-19 (NILDA) POC Glucose 117 H Blood Type Antibody Screen 03/05/20 03/05/20 02:25 02:58 WBC RBC Hgb Hct MCV MCH MCHC RDW Std Deviation RDW Coeff of Becca Plt Count MPV Immature Gran % (Auto) Neut % (Auto) Lymph % (Auto) [place] % (Auto) Eos % (Auto) Baso % (Auto) Absolute Neuts (auto) Absolute Lymphs (auto) Nucleated RBC % Differential Comment PT INR APTT D-Dimer Quant (PE/DVT) Specimen Type ART Sample Site R Radial pH 7.32 L Bicarbonate Actual 30.3 H Total CO2 32 Base Excess 4 H O2 Saturation 93 L O2 % 50 ABG pCO2 59.1 H ABG pO2 73 L Binu Test Positive Respiration Rate 14 O2 Delivery Device BiPAP Liter Flow Tidal Volume 500 POC PEEP 8 Sodium Potassium Chloride Carbon Dioxide Anion Gap BUN Creatinine Estim Creat Clear Calc Est GFR (MDRD) Af Amer Est GFR (MDRD) Non-Af BUN/Creatinine Ratio Glucose Hemoglobin A1c Lactic Acid Calcium Magnesium Ferritin Total Bilirubin AST ALT Alkaline Phosphatase Lactate Dehydrogenase Troponin I 0.077 H C-React Prot Ext Range Total Protein Albumin Globulin Albumin/Globulin Ratio Procalcitonin COVID-19 (NILDA) POC Glucose Blood Type Antibody Screen Microbiology 03/04/20 16:45 Mucosa - Nose Respiratory Panel (PCR) - Final Clinical Impression(s) from Imaging Studies Chest X-Ray 03/04/20 11:25 IMPRESSION: Small left pleural effusion with bibasilar infiltrates worse on the left side. Electronically Signed: Smith Ilsa, at 12:07 EST , Service support , Chest CTA 03/04/20 17:26 IMPRESSION: 1. No pulmonary embolism 2. Bilateral viral pneumonia. 3. Probably bilateral lower lobe bacterial pneumonia and/or subsegmental collapse, possibly nonacute.. 4. Abnormal attenuation in the lower lung parenchyma. Recommend reevaluation after resolution of acute infectious disease. 5. Severe coronary artery disease. Electronically Signed: Lucrecia Gardner, at 18:29 EST Tel , Service support , Current Medications Acetaminophen (Acetaminophen 325 Mg Tablet) 650 mg PO Q6H PRN PRN PRN Reason: Pain Score 1-10/Temp > 100.7 F Last Admin: 03/05/20 00:05 Dose: 650 mg Documented by: Al Hydroxide/Mg Hydroxide (Mag Hydrox/Al Hydrox/Simeth 30 Ml Udc) 30 ml PO Q6H PRN PRN PRN Reason: Gastric Burning Albuterol Sulfate (Albuterol Sulfate 8 Gm Inhaler (60 Puffs)) 4 - 8 puff INHALATION Q4H PRN PRN PRN Reason: Dyspnea, wheezing Albuterol Sulfate (Albuterol 2.5 Mg/3 Ml Vial.Neb.) 2.5 mg INHALATION Q6HWA.RT [facility], 1928–1983 Last Admin: 03/04/20 20:46 Dose: 2.5 mg Documented by: Aspirin (Aspirin 81 Mg Tab.Chew) 81 mg PO DAILY [facility], [facility]1983 Dexamethasone Sodium Phosphate (Dexamethasone 10 Mg/Ml Vial) 6 mg IV DAILY [facility], [facility]1983 Enoxaparin Sodium (Enoxaparin 30 Mg/0.3 Ml Syringe) 30 mg SC BID [facility], [facility]1983 Last Admin: 03/04/20 21:26 Dose: 30 mg Documented by: Guaifenesin (Guaifenesin 10 Ml Udc (200mg/10ml)) 20 ml PO Q4H PRN PRN PRN Reason: COUGH Hydralazine HCl (Hydralazine 20 Mg/Ml Vial) 10 mg IV Q4H PRN PRN PRN Reason: SBP > 160 Remdesivir 100 mg/ Sodium (Chloride) 250 mls @ 125 mls/hr IV DAILY [facility], [facility]; Protocol Stop: 03/08/20 11:59 Lamotrigine (Lamotrigine 100 Mg Tablet) 100 mg PO BID [facility] Last Admin: 03/04/20 21:21 Dose: Not Given Documented by: Magnesium Hydroxide (Magnesium Hydroxide 30 Ml Udc) 30 ml PO DAILY PRN PRN PRN Reason: Constipation Melatonin (Melatonin 3 Mg Tablet) 3 mg PO QHS PRN PRN PRN Reason: INSOMNIA Morphine Sulfate (Morphine 2 Mg/Ml Syringe) 2 mg IV Q3H PRN PRN PRN Reason: Pain Score 6-10 Nitroglycerin (Nitroglycerin (Inpatient Use) 0.4 Mg Tab.Subl) 0.4 mg SUBLINGUAL Q5M PRN PRN Reason: CARDIAC/CHEST PAIN Ondansetron HCl (Ondansetron 4 Mg/2 Ml Vial) 4 mg IV Q8H PRN PRN PRN Reason: NAUSEA/VOMITING Oxycodone HCl (Oxycodone 5 Mg Tablet) 5 mg PO Q4H PRN PRN PRN Reason: Pain Score 4-5 Prochlorperazine Edisylate (Prochlorperazine 10 Mg/2 Ml Vial) 5 mg IV Q4H PRN PRN PRN Reason: Breakthrough Nausea/Vomiting Psyllium Hydrophilic Mucilloid (Psyllium 1 Packet) 1 packet PO DAILY PRN PRN PRN Reason: Constipation Senna/Docusate Sodium (Senna/Docusate Sodium 1 Tablet) 2 tablet PO BID PRN PRN PRN Reason: Constipation Sodium Chloride (0.9% Saline Lock 10 Ml Syringe) 10 - 40 ml IV UD PRN PRN Reason: SALINE FLUSH Throat Lozenges (Benzocaine/Menthol 1 Lozenge) 1 lozenge MUCOUS MEM Q2H PRN PRN PRN Reason: SORE THROAT Assessment/Plan Active and Suspected Problems Pneumonia due to COVID-19 virus (Acute) Respiratory failure (Acute) FREDY (acute kidney injury) (Acute) Acute respiratory failure with hypoxia (Acute) Diabetes mellitus, type II (Suspected) Former tobacco use (Suspected) Chronic obstructive pulmonary disease (COPD) (Suspected) RECOMMENDATIONS: 1. Wean from BiPAP therapy and transition to Airvo heated high flow this morning. 2. Dietary advancement as tolerated. 3. Continue Decadron and remdesivir as ordered. Monitor liver and renal function accordingly. 4. Start scheduled bronchodilator therapy while awake. 5. Recommend continued use of BiPAP on a nightly basis. IMPRESSIONS: 1. Acute on chronic combined respiratory failure secondary to COVID-19 pneumonia The patient has an apparent history of COPD and chronic oxygen dependency. He does appear to be in a state of exacerbation precipitated by his viral pneumonia. Plan to continue current supportive measures including the use of noninvasive positive pressure ventilatory support. The patient will be continued on Lovenox, Decadron and remdesivir. Liver and renal function will be monitored accordingly. We will start scheduled bronchodilator therapy as well while awake. 2. Encephalopathy Likely metabolic in etiology and related to CO2 retention. This has improved with noninvasive positive pressure ventilatory support. The patient is currently alert and interactive. 3. FREDY versus CKD Unclear baseline renal function. The patient did receive supplemental IV fluid hydration. We will plan to continue to monitor for now. No indication for renal replacement therapy. 4. Coronary artery disease/COPD/unspecified seizure disorder/diabetes mellitus/hypertension/hyperlipidemia/advanced age Complicates care, management, recovery and prognosis. Continue home medications as indicated. This note was generated with Koducoation software. It may contain incorrect words, spelling, and punctuation that were not noted in checking the note before signing. Inpatient E&M: 02124 Init Hosp L3
--- NOTE | 2020-03-05 05:55 | EKG12_ITS ---
Test Reason : AM EKG Blood Pressure : / mmHG Vent. Rate : 071 BPM Atrial Rate : 071 BPM P-R Int : 204 ms QRS Dur : 164 ms QT Int : 474 ms P-R-T Axes : -11 -69 002 degrees QTc Int : 515 ms Electronic atrial pacemaker Left axis deviation Right bundle branch block Abnormal ECG Confirmed by MILTON SPANGLER, SHANTI ([id number]), development editor MEGGAN MYRICK ([id number]) on 03/10/2020 8:51:14 AM Referred By: AZUL Confirmed By:SHANTI ROSE MD
[2020-03-05] MEDS: Albuterol 2.5 MG/3 ML VIAL.NEB. INHALATION (06:45)
[2020-03-05] MEDS: Lidocaine Jelly 2% 20 ML Syringe (URO-JET) 20 APPLIC TOPICAL (06:50)
--- NOTE | 2020-03-05 07:15 | PCM.PN.HOSP ---
Patient Problems: Active and Suspected Problems Pneumonia due to COVID-19 virus (Acute) Respiratory failure (Acute) FREDY (acute kidney injury) (Acute) Acute respiratory failure with hypoxia (Acute) Diabetes mellitus, type II (Suspected) Former tobacco use (Suspected) Chronic obstructive pulmonary disease (COPD) (Suspected) Reason for Visit: Follow-up for COVID-19 pneumonia with acute hypoxic respiratory failure and COPD exacerbation Objective: Patient was admitted yesterday with shortness of breath, acute hypoxic respiratory failure, altered mental status, cough, fever and chills. T-max 103.2 Fahrenheit. Patient also tachypneic and very hypoxic. Patient was put on BiPAP and his respiratory status is improved. Currently on high flow oxygen. Physical exam General: Alert, Oriented x3, Cooperative HEENT: Atraumatic, PERRLA, EOMI, Normocephalic Oral: No Gingival or Mucosal Lesions/ Ulcerations Neck: Supple, No JVD, Negative Carotid Bruits Lungs: Air entry diminished in bilateral lung bases. Bilateral expiratory rhonchi present. Mild shortness of breath. Cardiovascular: Regular rate, Regular Rhythm, Normal S1, Normal S2, No murmurs Abdomen: Bowel Sounds Present, Soft, Non Tender, Non-Distended : No renal angle tenderness. No suprapubic tenderness. Extremities: No edema, Capillary Refill Less than 3 Seconds Skin: No rashes, No breakdown Musculoskeletal: No Tenderness to Palpation of Joints or Extremities Neurological: Cranial nerves II-XII grossly intact, Deep Tendon Reflexes 2+/4 and Symmetrical, Neuro grossly intact Psych/Mental Status: Normal Affect, Appropriate. Vitals/I&O's: Vital Signs Temp Pulse Resp BP Pulse Ox 98.4 F 71 17 98/59 L 96 03/05/20 06:00 03/05/20 07:00 03/05/20 07:00 03/05/20 07:00 03/05/20 07:00 Oxygen Flow Rate (L/min) 4 Oxygen Delivery Method Bi-pap Weight: 195 lb 15.855 oz Body Mass Index (BMI) 28.9 Intake and Output for Last 24 Hours 03/03/20 03/04/20 03/05/20 23:59 23:59 23:59 Intake Total 1000 / 1150 400 / 400 Output Total 500 / 500 Balance 1000 / 1150 -100 / -100 Microbiology Past 72 Hours 03/05/20 05:45 Urine Catheter - Catheter Legionella Antigen - Final 03/05/20 05:45 Urine Catheter - Catheter Streptococcus pneumoniae Antigen (M - Final 03/04/20 16:45 Mucosa - Nose Respiratory Panel (PCR) - Final Laboratory Results 03/04/20 10:30: WBC 12.1 H, RBC 4.53 L, Hgb 13.4, Hct 43.6, MCV 96.2 H, MCH 29.6, MCHC 30.7 L, RDW Std Deviation 47.8 H, RDW Coeff of Becca 13.4, Plt Count 220, MPV 10.7, Immature Gran % (Auto) 0.600, Neut % (Auto) 89.3 H, Lymph % (Auto) 4.8 L, [place] % (Auto) 5.1, Eos % (Auto) 0.0, Baso % (Auto) 0.2, Absolute Neuts (auto) 10.8 H, Absolute Lymphs (auto) 0.58 L, Nucleated RBC % 0, Differential Comment COMMENT 03/04/20 10:30: PT 14.3, INR 1.2, APTT 32.5 03/04/20 10:30: Sodium 139, Potassium 3.8, Chloride 100, Carbon Dioxide 34.0 H, Anion Gap 5, BUN 40 H, Creatinine 1.79 H, Estim Creat Clear Calc 30.25, Est GFR (MDRD) Af Amer 47 L, Est GFR (MDRD) Non-Af 39 L, BUN/Creatinine Ratio 22.3 H, Glucose 139 H, Calcium 8.6, Total Bilirubin 0.70, AST 41 H, ALT 39, Alkaline Phosphatase 62, Troponin I 0.072 H, Total Protein 7.4, Albumin 3.3, Globulin 4.1, Albumin/Globulin Ratio 0.8 L 03/04/20 10:30: D-Dimer Quant (PE/DVT) 2.73 H* 03/04/20 10:30: Magnesium 2.4, Ferritin 1410 H, Lactate Dehydrogenase 344 H, C-React Prot Ext Range 225.00 H 03/04/20 10:30: Hemoglobin A1c 5.7 H 03/04/20 10:30: Procalcitonin 0.36 H 03/04/20 11:05: Lactic Acid 1.4 03/04/20 11:54: COVID-19 (NILDA) Detected 03/04/20 17:13: Blood Type A POSITIVE, Antibody Screen NEGATIVE 03/04/20 17:14: Specimen Type ART, Sample Site R Radial, pH 7.19 L*, Bicarbonate Actual 32.7 H, Total CO2 35, Base Excess 5 H, O2 Saturation 88 L, ABG pCO2 85.0 H*, ABG pO2 70 L, Binu Test Positive, O2 Delivery Device Cannula, Liter Flow 4.0 03/04/20 17:30: POC Glucose 133 H 03/04/20 17:45: Troponin I 0.054 H 03/04/20 20:15: Specimen Type ART, Sample Site R Radial, pH 7.25 L, Bicarbonate Actual 31.7 H, Total CO2 34, Base Excess 4 H, O2 Saturation 93 L, O2 % 35, ABG pCO2 72.6 H*, ABG pO2 79, O2 Delivery Device BiPAP 03/04/20 21:20: Troponin I 0.052 H 03/05/20 01:42: POC Glucose 117 H 03/05/20 02:25: WBC 11.5 H, RBC 3.82 L, Hgb 11.3 L, Hct 36.8 L, MCV 96.3 H, MCH 29.6, MCHC 30.7 L, RDW Std Deviation 47.8 H, RDW Coeff of Becca 13.4, Plt Count 189, MPV 10.0 03/05/20 02:25: Sodium 143, Potassium 3.7, Chloride 107, Carbon Dioxide 30.0, Anion Gap 6, BUN 46 H, Creatinine 1.63 H, Estim Creat Clear Calc 33.22, Est GFR (MDRD) Af Amer 52 L, Est GFR (MDRD) Non-Af 43 L, BUN/Creatinine Ratio 28.2 H, Glucose 111 H, Calcium 7.6 L, Total Bilirubin 0.60, AST 27, ALT 29, Alkaline Phosphatase 47, Total Protein 5.7 L, Albumin 2.5 L, Globulin 3.2, Albumin/Globulin Ratio 0.8 L 03/05/20 02:25: Troponin I 0.077 H 03/05/20 02:58: Specimen Type ART, Sample Site R Radial, pH 7.32 L, Bicarbonate Actual 30.3 H, Total CO2 32, Base Excess 4 H, O2 Saturation 93 L, O2 % 50, ABG pCO2 59.1 H, ABG pO2 73 L, Binu Test Positive, Respiration Rate 14, O2 Delivery Device BiPAP, Tidal Volume 500, POC PEEP 8 Current Medications Acetaminophen (Acetaminophen 325 Mg Tablet) 650 mg PO Q6H PRN PRN PRN Reason: Pain Score 1-10/Temp > 100.7 F Last Admin: 03/05/20 00:05 Dose: 650 mg Documented by: Al Hydroxide/Mg Hydroxide (Mag Hydrox/Al Hydrox/Simeth 30 Ml Udc) 30 ml PO Q6H PRN PRN PRN Reason: Gastric Burning Albuterol Sulfate (Albuterol Sulfate 8 Gm Inhaler (60 Puffs)) 4 - 8 puff INHALATION Q4H PRN PRN PRN Reason: Dyspnea, wheezing Albuterol Sulfate (Albuterol 2.5 Mg/3 Ml Vial.Neb.) 2.5 mg INHALATION Q6HWA.RT [facility] Last Admin: 03/05/20 06:45 Dose: 2.5 mg Documented by: Aspirin (Aspirin 81 Mg Tab.Chew) 81 mg PO DAILY [facility] Dexamethasone Sodium Phosphate (Dexamethasone 10 Mg/Ml Vial) 6 mg IV DAILY [facility] Enoxaparin Sodium (Enoxaparin 30 Mg/0.3 Ml Syringe) 30 mg SC BID [facility] Last Admin: 03/04/20 21:26 Dose: 30 mg Documented by: Guaifenesin (Guaifenesin 10 Ml Udc (200mg/10ml)) 20 ml PO Q4H PRN PRN PRN Reason: COUGH Hydralazine HCl (Hydralazine 20 Mg/Ml Vial) 10 mg IV Q4H PRN PRN PRN Reason: SBP > 160 Remdesivir 100 mg/ Sodium (Chloride) 250 mls @ 125 mls/hr IV DAILY [facility]; Protocol Stop: 03/08/20 11:59 Lamotrigine (Lamotrigine 100 Mg Tablet) 100 mg PO BID [facility] Last Admin: 03/04/20 21:21 Dose: Not Given Documented by: Magnesium Hydroxide (Magnesium Hydroxide 30 Ml Udc) 30 ml PO DAILY PRN PRN PRN Reason: Constipation Melatonin (Melatonin 3 Mg Tablet) 3 mg PO QHS PRN PRN PRN Reason: INSOMNIA Morphine Sulfate (Morphine 2 Mg/Ml Syringe) 2 mg IV Q3H PRN PRN PRN Reason: Pain Score 6-10 Nitroglycerin (Nitroglycerin (Inpatient Use) 0.4 Mg Tab.Subl) 0.4 mg SUBLINGUAL Q5M PRN PRN Reason: CARDIAC/CHEST PAIN Ondansetron HCl (Ondansetron 4 Mg/2 Ml Vial) 4 mg IV Q8H PRN PRN PRN Reason: NAUSEA/VOMITING Oxycodone HCl (Oxycodone 5 Mg Tablet) 5 mg PO Q4H PRN PRN PRN Reason: Pain Score 4-5 Prochlorperazine Edisylate (Prochlorperazine 10 Mg/2 Ml Vial) 5 mg IV Q4H PRN PRN PRN Reason: Breakthrough Nausea/Vomiting Psyllium Hydrophilic Mucilloid (Psyllium 1 Packet) 1 packet PO DAILY PRN PRN PRN Reason: Constipation Senna/Docusate Sodium (Senna/Docusate Sodium 1 Tablet) 2 tablet PO BID PRN PRN PRN Reason: Constipation Sodium Chloride (0.9% Saline Lock 10 Ml Syringe) 10 - 40 ml IV UD PRN PRN Reason: SALINE FLUSH Throat Lozenges (Benzocaine/Menthol 1 Lozenge) 1 lozenge MUCOUS MEM Q2H PRN PRN PRN Reason: SORE THROAT STROKE Vital Signs/Narrative: Vital Signs Temp Pulse Resp BP Pulse Ox 03/05/20 07:00 71 17 98/59 L 96 03/05/20 06:45 72 24 H 98 03/05/20 06:00 98.4 F 77 24 H 97/58 L 95 03/05/20 05:00 98.7 F 71 26 H 129/79 H 97 03/05/20 04:31 70 21 H 96 03/05/20 04:00 71 22 H 89/59 L 96 Medical Necessity - Tobacco Use Smoking Status: Never smoker - Patient listed is a tobacco user in the past however daughter Tala notes that he was never a smoker. Tobacco Use: Non-smoker Assessment/Plan All Active Problems Pneumonia due to COVID-19 virus (Acute) Respiratory failure (Acute) FREDY (acute kidney injury) (Acute) Acute respiratory failure with hypoxia (Acute) Cellulitis of right lower extremity (Acute) This 84 okay patient with history of COPD not on home oxygen, coronary artery disease with pacemaker and other multiple comorbidities was admitted with fever chills, cough, shortness of breath worse on exertion, hypoxia, altered mental status, sore throat, chest tightness, fatigue and diaphoresis for several days. Patient was found 84% on room air, then 4 L of oxygen nasal cannula and finally on BiPAP after he did not improve. ABG showed respiratory acidosis with PCO2 85 and CO2 35. CTA chest reviewed. No pulmonary embolism. Bilateral groundglass opacity, predominantly basal consolidations, upper lobes subsegmental groundglass opacity, left upper lobe more than right upper lobe and small left pleural effusion 1. Acute hypoxic and hypercarbic combined respiratory failure secondary to COPD exacerbation and bilateral pneumonia: Patient is being admitted in ICU on BiPAP. Inflammatory markers are elevated. COVID-19 PCR positive. Procalcitonin 0.36. D-dimer 2.73. Aggressive bronchopulmonary hygiene. ID consult. Repeat ABG shows improvement of PCO2, 7.32/59/73/30 on BiPAP 50% FiO2. ABG suggestive of acute respiratory acidosis. On bronchodilator, Lovenox, Decadron and remdesivir. 2. Acute encephalopathy mainly metabolic and infectious etiologies: Treat underlying disorder. Encephalopathy is much improved. Patient is awake and alert. 3. Acute kidney injury versus underlying CKD stage 3: Patient estimated creatinine clearance was around 66, creatinine 0.9 in February 2016 BUN/creatinine elevated 40/1.79. Repeat labs shows improvement in creatinine but BUN went up to 46. 4. CAD: Patient with history of SC and status post pacemaker status, serial troponin enzymes are elevated but plateaued 0.054, 0.0522, was 0.077. Patient denies chest pain. Twelve-lead EKG shows right bundle branch block, LAD, paced rhythm at 71 bpm. Continue aspirin, clarifying if on beta-leonarda, LYNN inhibitor/ARB, statin therapy. 5. Dementia with behavioral component unclear type with history of anxiety and depression: PT/OT/case management consultation for discharge planning, fall precautions and aspiration precautions. 6. Diabetes mellitus type II: A1c 5.7 shows good glucose control. Blood sugar in the range of 117-130. 7. Seizure disorder: Patient with history of focal seizures, continue home lamotrigine regimen, fall precautions. 8. Hypertension: BP improved 117/89. 9. Hyperlipidemia: 10. Other comorbidities include former tobacco use, obstructive sleep apnea former tobacco use: 11. DVT prophylaxis: SCDs, Lovenox. CODE STATUS DNR CC arrest no intubation Inpatient E&M: 96611 Subs Hosp L3
[2020-03-05] MEDS: Enoxaparin 30 MG/0.3 ML Syringe SC ×2 (10:53→20:37)
[2020-03-05] MEDS: dexAMETHasone 10 MG/ML Vial 6 MG IV (10:53)
[2020-03-05] MEDS: lamoTRIgine 100 MG Tablet PO ×2 (10:53→20:37)
[2020-03-05] MEDS: Aspirin 81 MG TAB.CHEW PO (10:53)
--- NOTE | 2020-03-05 11:50 | CASEMGMT ---
TUAN CRUZ ASSESSMENT COVID-19 +. Pt is in isolation precautions. Per report, pt has underlying dementia and was only oriented to name last evening. RN reports this AM, pt is oriented x 3. Call placed into pt's room at this time. No answer. TUAN CRUZ placed call to pt's daughter/Tala/HARLEY for initial transition planning/care coordination assessment. TUAN CRUZ introduced self and role at [facility].? Care providers, pharmacy, and demographics verified/updated at this time. PCP: Dr Smalls Specialists: None Preferred [facility]acy: [facility] Insurance: [place] [facility] Prescription Benefit:? Yes Living Will/HPOA:? Has both LW and Healthcare [place], who is his daughter, Tala LNOK: daughter, Tala/HARLEY. Has 6 other adult children Living Arrangements: Lives alone in 2-story home w/3 steps to enter and also has a ramp entrance. Has good family support. Family lives nearby and someone calls to check on him daily. Pt had been independent w/ADL's and IADL's until recent illness. Per Tala, pt's gait has been very slow/shuffling. DME: ?Has the following DME:?walk-in shower w/shower seat, cane, grab bars, rollator, CPAP. He has O2 @ home, but Tala is not sure what company he gets it through or what the liter flow is. She states she will check on this/obtain this info. HHC/SNF: No history of SNF. Has had HHC in the past. Tala states the family has just recently started to discuss if pt needs half-way placement, but they are not sure if his decline has mostly been d/t COVID and if he will recover well enough to return home or if he will need SNF. She states they have considered pt d/c'ing home w/a family member and would be interested in HHC as well, if that is the route they go. She states they she will discuss this with the family this weekend and with pt to decide together what the plan will be for discharge. She was made aware, it pt is oriented/cognitively capable of making the decision, that he would need to be agreeable. She voices understanding. PLAN: TBD CM/SW to f/u with pt/family on Saturday Home w/family and HHC vs SNF. Follow for any increase in O2 needs @ d/c Radha BSN RN CM
[2020-03-05] MEDS: Ipratropium/Albuterol Sulfate 3 ML AMPUL.NEB INHALATION ×2 (14:26→19:33)
[2020-03-06] VITALS (37 sets, daily range): BP systolic 95–129; BP diastolic 56–88; PULSE 69–84; RESP 14–80; TEMP 36.2–37; O2SAT 88–98
[2020-03-06 01:25] LABS: Bedside Glucose 162 mg/dL (70-110)
[2020-03-06 05:10] LABS: Hematocrit 35.1 % (40-54); Hemoglobin 11.4 g/dL (13.0-16.5); Mean Corp Hgb Conc 32.5 g/dL (32-36); Mean Corpuscular Hgb 30.3 pg (27.0-32.0); Mean Corpuscular Volume 93.4 fL (80-94); Mean Platelet Vol. 10.9 fl (6.2-12.0); Platelet Count 214 K/mm3 (150-450); RBC Distribution Width CV 13.4 % (11.6-14.6); RBC Distribution Width SD 46.1 fl (35.1-43.9); Red Blood Count 3.76 M/mm3 (4.6-6.2); White Blood Count 8.2 K/mm3 (4.4-11.0)
[2020-03-06 05:25] LABS: ALB/GLOB Ratio 0.7 RATIO (0.9-2.4); AST(SGOT) 27 U/L (15-37); Alanine Aminotransfer ALT/SGPT 29 U/L (16-61); Albumin, Serum 2.4 g/dL (3.2-5.0); Alkaline Phosphatase 46 U/L (45-117); Anion Gap 7 (5-15); BUN 58 mg/dL (7-18); BUN/Creat Ratio 34.1 RATIO (10-20); Calcium,Total 7.7 mg/dL (8.5-10.1); Chloride 98 mmol/L (98-107); EST Glomerular Filtration Rate 41 mL/min (>60); Est Glom Filt Rate - Afr Amer 50 mL/min (>60); Estimated Creatinine Clearance 31.85 ml/min; Globulin 3.3 g/dL (2.2-4.2); Glucose 163 mg/dL (74-106); Potassium 3.8 mmol/L (3.5-5.1); Protein, Total 5.7 g/dL (6.4-8.2); Sodium Level 134 mmol/L (136-145)
--- NOTE | 2020-03-06 05:52 | PCM.PN.INT ---
Subjective: The patient was seen and examined at the bedside this morning. Events from the last 24 hours have been reviewed. The patient is currently afebrile, hemodynamically stable and maintaining appropriate oxygen saturations on BiPAP with an FiO2 requirement of 45%. The patient did tolerate Airvo heated high flow throughout the day yesterday. The patient remains on both Decadron and remdesivir. Liver and renal function are stable. The patient is currently documented to be overall net +2.2 L for the hospital admission. Objective: The patient's most recent lab work, culture data and imaging studies have all been personally reviewed. Coronavirus PCR was positive on March 04. Respiratory viral panel was negative. Strep and urine Legionella antigens were negative. Blood cultures are pending. General: Alert, Cooperative, No apparent distress, - - Sitting in bedside recliner with Airvo in place. HEENT: Atraumatic, Normocephalic Oral: No Gingival or Mucosal Lesions/ Ulcerations Neck: Supple, No Nodes, Trachea Midline Lungs: No rhonchi, No wheeze, No rales, Diminished Cardiovascular: Regular rate, Regular Rhythm Abdomen: Bowel Sounds Present, Soft, Non Tender Extremities: No clubbing, No cyanosis, No edema Skin: No breakdown Musculoskeletal: No Tenderness to Palpation of Joints or Extremities Lymphatic: No Cervical, Supraclavicular, or Inguinal Adenopathy Neurological: Cranial nerves II-XII grossly intact, Neuro grossly intact Psych/Mental Status: Normal Affect Vital Signs Temp Pulse Resp BP Pulse Ox 98.6 F 70 27 H 106/75 95 03/06/20 00:00 03/06/20 05:13 03/06/20 05:13 03/06/20 04:00 03/06/20 05:13 Oxygen Flow Rate (L/min) 50 Oxygen Delivery Method Bi-pap Weight: 201 lb 11.567 oz Body Mass Index (BMI) 28.9 Intake and Output for Last 24 Hours 03/04/20 03/05/20 03/06/20 23:59 23:59 23:59 Intake Total 1000 / 1150 1650 / 1872 822 / 822 Output Total 800 / 950 425 / 425 Balance 1000 / 1150 850 / 922 397 / 397 Labs (Last 48 Hours) 03/04/20 03/04/20 03/04/20 10:30 10:30 10:30 WBC 12.1 H RBC 4.53 L Hgb 13.4 Hct 43.6 MCV 96.2 H MCH 29.6 MCHC 30.7 L RDW Std Deviation 47.8 H RDW Coeff of Becca 13.4 Plt Count 220 MPV 10.7 Immature Gran % (Auto) 0.600 Neut % (Auto) 89.3 H Lymph % (Auto) 4.8 L Garrard % (Auto) 5.1 Eos % (Auto) 0.0 Baso % (Auto) 0.2 Absolute Neuts (auto) 10.8 H Absolute Lymphs (auto) 0.58 L Nucleated RBC % 0 Differential Comment COMMENT PT 14.3 INR 1.2 APTT 32.5 D-Dimer Quant (PE/DVT) Specimen Type Sample Site pH Bicarbonate Actual Total CO2 Base Excess O2 Saturation O2 % ABG pCO2 ABG pO2 Binu Test Respiration Rate O2 Delivery Device Liter Flow Tidal Volume POC PEEP Sodium 139 Potassium 3.8 Chloride 100 Carbon Dioxide 34.0 H Anion Gap 5 BUN 40 H Creatinine 1.79 H Estim Creat Clear Calc 30.25 Est GFR (MDRD) Af Amer 47 L Est GFR (MDRD) Non-Af 39 L BUN/Creatinine Ratio 22.3 H Glucose 139 H Hemoglobin A1c Lactic Acid Calcium 8.6 Magnesium Ferritin Total Bilirubin 0.70 AST 41 H ALT 39 Alkaline Phosphatase 62 Lactate Dehydrogenase Troponin I 0.072 H C-React Prot Ext Range Total Protein 7.4 Albumin 3.3 Globulin 4.1 Albumin/Globulin Ratio 0.8 L Procalcitonin COVID-19 (NILDA) POC Glucose Blood Type Antibody Screen 03/04/20 03/04/20 03/04/20 10:30 10:30 10:30 WBC RBC Hgb Hct MCV MCH MCHC RDW Std Deviation RDW Coeff of Becca Plt Count MPV Immature Gran % (Auto) Neut % (Auto) Lymph % (Auto) Garrard % (Auto) Eos % (Auto) Baso % (Auto) Absolute Neuts (auto) Absolute Lymphs (auto) Nucleated RBC % Differential Comment PT INR APTT D-Dimer Quant (PE/DVT) 2.73 H* Specimen Type Sample Site pH Bicarbonate Actual Total CO2 Base Excess O2 Saturation O2 % ABG pCO2 ABG pO2 Binu Test Respiration Rate O2 Delivery Device Liter Flow Tidal Volume POC PEEP Sodium Potassium Chloride Carbon Dioxide Anion Gap BUN Creatinine Estim Creat Clear Calc Est GFR (MDRD) Af Amer Est GFR (MDRD) Non-Af BUN/Creatinine Ratio Glucose Hemoglobin A1c 5.7 H Lactic Acid Calcium Magnesium 2.4 Ferritin 1410 H Total Bilirubin AST ALT Alkaline Phosphatase Lactate Dehydrogenase 344 H Troponin I C-React Prot Ext Range 225.00 H Total Protein Albumin Globulin Albumin/Globulin Ratio Procalcitonin COVID-19 (NILDA) POC Glucose Blood Type Antibody Screen 03/04/20 03/04/20 03/04/20 10:30 11:05 11:54 WBC RBC Hgb Hct MCV MCH MCHC RDW Std Deviation RDW Coeff of Becca Plt Count MPV Immature Gran % (Auto) Neut % (Auto) Lymph % (Auto) Garrard % (Auto) Eos % (Auto) Baso % (Auto) Absolute Neuts (auto) Absolute Lymphs (auto) Nucleated RBC % Differential Comment PT INR APTT D-Dimer Quant (PE/DVT) Specimen Type Sample Site pH Bicarbonate Actual Total CO2 Base Excess O2 Saturation O2 % ABG pCO2 ABG pO2 Binu Test Respiration Rate O2 Delivery Device Liter Flow Tidal Volume POC PEEP Sodium Potassium Chloride Carbon Dioxide Anion Gap BUN Creatinine Estim Creat Clear Calc Est GFR (MDRD) Af Amer Est GFR (MDRD) Non-Af BUN/Creatinine Ratio Glucose Hemoglobin A1c Lactic Acid 1.4 Calcium Magnesium Ferritin Total Bilirubin AST ALT Alkaline Phosphatase Lactate Dehydrogenase Troponin I C-React Prot Ext Range Total Protein Albumin Globulin Albumin/Globulin Ratio Procalcitonin 0.36 H COVID-19 (NILDA) Detected POC Glucose Blood Type Antibody Screen 03/04/20 03/04/20 03/04/20 17:13 17:14 17:30 WBC RBC Hgb Hct MCV MCH MCHC RDW Std Deviation RDW Coeff of Becca Plt Count MPV Immature Gran % (Auto) Neut % (Auto) Lymph % (Auto) Garrard % (Auto) Eos % (Auto) Baso % (Auto) Absolute Neuts (auto) Absolute Lymphs (auto) Nucleated RBC % Differential Comment PT INR APTT D-Dimer Quant (PE/DVT) Specimen Type ART Sample Site R Radial pH 7.19 L* Bicarbonate Actual 32.7 H Total CO2 35 Base Excess 5 H O2 Saturation 88 L O2 % ABG pCO2 85.0 H* ABG pO2 70 L Binu Test Positive Respiration Rate O2 Delivery Device Cannula Liter Flow 4.0 Tidal Volume POC PEEP Sodium Potassium Chloride Carbon Dioxide Anion Gap BUN Creatinine Estim Creat Clear Calc Est GFR (MDRD) Af Amer Est GFR (MDRD) Non-Af BUN/Creatinine Ratio Glucose Hemoglobin A1c Lactic Acid Calcium Magnesium Ferritin Total Bilirubin AST ALT Alkaline Phosphatase Lactate Dehydrogenase Troponin I C-React Prot Ext Range Total Protein Albumin Globulin Albumin/Globulin Ratio Procalcitonin COVID-19 (NILDA) POC Glucose 133 H Blood Type A POSITIVE Antibody Screen NEGATIVE 03/04/20 03/04/20 03/04/20 17:45 20:15 21:20 WBC RBC Hgb Hct MCV MCH MCHC RDW Std Deviation RDW Coeff of Becca Plt Count MPV Immature Gran % (Auto) Neut % (Auto) Lymph % (Auto) Garrard % (Auto) Eos % (Auto) Baso % (Auto) Absolute Neuts (auto) Absolute Lymphs (auto) Nucleated RBC % Differential Comment PT INR APTT D-Dimer Quant (PE/DVT) Specimen Type ART Sample Site R Radial pH 7.25 L Bicarbonate Actual 31.7 H Total CO2 34 Base Excess 4 H O2 Saturation 93 L O2 % 35 ABG pCO2 72.6 H* ABG pO2 79 Binu Test Respiration Rate O2 Delivery Device BiPAP Liter Flow Tidal Volume POC PEEP Sodium Potassium Chloride Carbon Dioxide Anion Gap BUN Creatinine Estim Creat Clear Calc Est GFR (MDRD) Af Amer Est GFR (MDRD) Non-Af BUN/Creatinine Ratio Glucose Hemoglobin A1c Lactic Acid Calcium Magnesium Ferritin Total Bilirubin AST ALT Alkaline Phosphatase Lactate Dehydrogenase Troponin I 0.054 H 0.052 H C-React Prot Ext Range Total Protein Albumin Globulin Albumin/Globulin Ratio Procalcitonin COVID-19 (NILDA) POC Glucose Blood Type Antibody Screen 03/05/20 03/05/20 03/05/20 01:42 02:25 02:25 WBC 11.5 H RBC 3.82 L Hgb 11.3 L Hct 36.8 L MCV 96.3 H MCH 29.6 MCHC 30.7 L RDW Std Deviation 47.8 H RDW Coeff of Becca 13.4 Plt Count 189 MPV 10.0 Immature Gran % (Auto) Neut % (Auto) Lymph % (Auto) Garrard % (Auto) Eos % (Auto) Baso % (Auto) Absolute Neuts (auto) Absolute Lymphs (auto) Nucleated RBC % Differential Comment PT INR APTT D-Dimer Quant (PE/DVT) Specimen Type Sample Site pH Bicarbonate Actual Total CO2 Base Excess O2 Saturation O2 % ABG pCO2 ABG pO2 Binu Test Respiration Rate O2 Delivery Device Liter Flow Tidal Volume POC PEEP Sodium 143 Potassium 3.7 Chloride 107 Carbon Dioxide 30.0 Anion Gap 6 BUN 46 H Creatinine 1.63 H Estim Creat Clear Calc 33.22 Est GFR (MDRD) Af Amer 52 L Est GFR (MDRD) Non-Af 43 L BUN/Creatinine Ratio 28.2 H Glucose 111 H Hemoglobin A1c Lactic Acid Calcium 7.6 L Magnesium Ferritin Total Bilirubin 0.60 AST 27 ALT 29 Alkaline Phosphatase 47 Lactate Dehydrogenase Troponin I C-React Prot Ext Range Total Protein 5.7 L Albumin 2.5 L Globulin 3.2 Albumin/Globulin Ratio 0.8 L Procalcitonin COVID-19 (NILDA) POC Glucose 117 H Blood Type Antibody Screen 03/05/20 03/05/20 03/05/20 02:25 02:58 23:02 WBC RBC Hgb Hct MCV MCH MCHC RDW Std Deviation RDW Coeff of Becca Plt Count MPV Immature Gran % (Auto) Neut % (Auto) Lymph % (Auto) Garrard % (Auto) Eos % (Auto) Baso % (Auto) Absolute Neuts (auto) Absolute Lymphs (auto) Nucleated RBC % Differential Comment PT INR APTT D-Dimer Quant (PE/DVT) Specimen Type ART Sample Site R Radial pH 7.32 L Bicarbonate Actual 30.3 H Total CO2 32 Base Excess 4 H O2 Saturation 93 L O2 % 50 ABG pCO2 59.1 H ABG pO2 73 L Binu Test Positive Respiration Rate 14 O2 Delivery Device BiPAP Liter Flow Tidal Volume 500 POC PEEP 8 Sodium Potassium Chloride Carbon Dioxide Anion Gap BUN Creatinine Estim Creat Clear Calc Est GFR (MDRD) Af Amer Est GFR (MDRD) Non-Af BUN/Creatinine Ratio Glucose Hemoglobin A1c Lactic Acid Calcium Magnesium Ferritin Total Bilirubin AST ALT Alkaline Phosphatase Lactate Dehydrogenase Troponin I 0.077 H C-React Prot Ext Range Total Protein Albumin Globulin Albumin/Globulin Ratio Procalcitonin COVID-19 (NILDA) POC Glucose 162 H Blood Type Antibody Screen 03/06/20 03/06/20 04:50 04:50 WBC 8.2 RBC 3.76 L Hgb 11.4 L Hct 35.1 L MCV 93.4 MCH 30.3 MCHC 32.5 D RDW Std Deviation 46.1 H RDW Coeff of Becca 13.4 Plt Count 214 MPV 10.9 Immature Gran % (Auto) Neut % (Auto) Lymph % (Auto) Garrard % (Auto) Eos % (Auto) Baso % (Auto) Absolute Neuts (auto) Absolute Lymphs (auto) Nucleated RBC % Differential Comment PT INR APTT D-Dimer Quant (PE/DVT) Specimen Type Sample Site pH Bicarbonate Actual Total CO2 Base Excess O2 Saturation O2 % ABG pCO2 ABG pO2 Binu Test Respiration Rate O2 Delivery Device Liter Flow Tidal Volume POC PEEP Sodium 134 L Potassium 3.8 Chloride 98 Carbon Dioxide 29.0 Anion Gap 7 BUN 58 H Creatinine 1.70 H Estim Creat Clear Calc 31.85 Est GFR (MDRD) Af Amer 50 L Est GFR (MDRD) Non-Af 41 L BUN/Creatinine Ratio 34.1 H Glucose 163 H Hemoglobin A1c Lactic Acid Calcium 7.7 L Magnesium Ferritin Total Bilirubin 0.40 AST 27 ALT 29 Alkaline Phosphatase 46 Lactate Dehydrogenase Troponin I C-React Prot Ext Range Total Protein 5.7 L Albumin 2.4 L Globulin 3.3 Albumin/Globulin Ratio 0.7 L Procalcitonin COVID-19 (NILDA) POC Glucose Blood Type Antibody Screen Microbiology 03/05/20 05:45 Urine Catheter - Catheter Legionella Antigen - Final 03/05/20 05:45 Urine Catheter - Catheter Streptococcus pneumoniae Antigen (M - Final 03/04/20 16:45 Mucosa - Nose Respiratory Panel (PCR) - Final Clinical Impression(s) from Imaging Studies Chest X-Ray 03/04/20 11:25 IMPRESSION: Small left pleural effusion with bibasilar infiltrates worse on the left side. Electronically Signed: Smith Rosenbaum, at 12:07 EST , Service support , Chest CTA 03/04/20 17:26 IMPRESSION: 1. No pulmonary embolism 2. Bilateral viral pneumonia. 3. Probably bilateral lower lobe bacterial pneumonia and/or subsegmental collapse, possibly nonacute.. 4. Abnormal attenuation in the lower lung parenchyma. Recommend reevaluation after resolution of acute infectious disease. 5. Severe coronary artery disease. Electronically Signed: Lucrecia Gardner, at 18:29 EST Tel , Service support , Medical Necessity - Tobacco Use Smoking Status: Never smoker - Patient listed is a tobacco user in the past however daughter Tala notes that he was never a smoker. Tobacco Use: Non-smoker Assessment/Plan All Active Problems Pneumonia due to COVID-19 virus (Acute) Respiratory failure (Acute) FREDY (acute kidney injury) (Acute) Acute respiratory failure with hypoxia (Acute) Cellulitis of right lower extremity (Acute) RECOMMENDATIONS: 1. Continue BiPAP nightly with Airvo heated high flow throughout the day. Wean FiO2 to maintain oxygen saturations at or above 90%. 2. Continue Decadron and remdesivir as ordered. Monitor liver and renal function accordingly. 3. Continue scheduled bronchodilator therapy while awake. 4. Encourage incentive spirometer use and mobilize patient as tolerated. IMPRESSIONS: 1. Acute on chronic combined respiratory failure secondary to COVID-19 pneumonia The patient has an apparent history of COPD and chronic oxygen dependency. He does appear to be in a state of exacerbation precipitated by his viral pneumonia. Plan to continue current supportive measures including the use of noninvasive positive pressure ventilatory support. The patient will be continued on Lovenox, Decadron and remdesivir. Liver and renal function will be monitored accordingly. Continue scheduled bronchodilator therapy as well while awake. 2. Encephalopathy Improved. Likely metabolic in etiology and related to CO2 retention. This has improved with noninvasive positive pressure ventilatory support. The patient is currently alert and interactive. 3. FREDY versus CKD Unclear baseline renal function. The patient did receive supplemental IV fluid hydration. We will plan to continue to monitor for now. No indication for renal replacement therapy. 4. Coronary artery disease/COPD/unspecified seizure disorder/diabetes mellitus/hypertension/hyperlipidemia/advanced age Complicates care, management, recovery and prognosis. Continue home medications as indicated. This note was generated with dooubation software. It may contain incorrect words, spelling, and punctuation that were not noted in checking the note before signing. Inpatient E&M: 62172 [facility] Hosp L3
--- NOTE | 2020-03-06 07:20 | PCM.PN.HOSP ---
Patient Problems: Active and Suspected Problems Pneumonia due to COVID-19 virus (Acute) Respiratory failure (Acute) FREDY (acute kidney injury) (Acute) Acute respiratory failure with hypoxia (Acute) Diabetes mellitus, type II (Suspected) Former tobacco use (Suspected) Chronic obstructive pulmonary disease (COPD) (Suspected) Reason for Visit: Follow-up for COVID-19 pneumonia and COPD exacerbation with acute hypoxic and hypercarbic combined respiratory failure Objective: Patient on BiPAP 40% FiO2. No fever or chills. Heart rate and blood pressure controlled. Patient is still short of breath although getting better. Physical exam General: Alert, Oriented x3, Cooperative HEENT: Atraumatic, PERRLA, EOMI, Normocephalic Oral: No Gingival or Mucosal Lesions/ Ulcerations Neck: Supple, No JVD, Negative Carotid Bruits Lungs: Air entry diminished in bilateral lung bases. Bilateral expiratory rhonchi present. Mild shortness of breath. Cardiovascular: Regular rate, Regular Rhythm, Normal S1, Normal S2, No murmurs Abdomen: Bowel Sounds Present, Soft, Non Tender, Non-Distended : No renal angle tenderness. No suprapubic tenderness. Extremities: No edema, Capillary Refill Less than 3 Seconds Skin: No rashes, No breakdown Musculoskeletal: No Tenderness to Palpation of Joints or Extremities Neurological: Cranial nerves II-XII grossly intact, Deep Tendon Reflexes 2+/4 and Symmetrical, Neuro grossly intact Psych/Mental Status: Normal Affect, Appropriate. Vitals/I&O's: Vital Signs Temp Pulse Resp BP Pulse Ox 98.6 F 78 29 H 120/71 95 03/06/20 00:00 03/06/20 07:00 03/06/20 07:00 03/06/20 07:00 03/06/20 07:00 Oxygen Flow Rate (L/min) 50 Oxygen Delivery Method Bi-pap Weight: 201 lb 11.567 oz Body Mass Index (BMI) 28.9 Intake and Output for Last 24 Hours 03/04/20 03/05/20 03/06/20 23:59 23:59 23:59 Intake Total 1000 / 1150 1650 / 1872 822 / 822 Output Total 800 / 950 425 / 425 Balance 1000 / 1150 850 / 922 397 / 397 Microbiology Past 72 Hours 03/05/20 05:45 Urine Catheter - Catheter Legionella Antigen - Final 03/05/20 05:45 Urine Catheter - Catheter Streptococcus pneumoniae Antigen (M - Final 03/04/20 16:45 Mucosa - Nose Respiratory Panel (PCR) - Final Laboratory Results 03/05/20 23:02: POC Glucose 162 H 03/06/20 04:50: WBC 8.2, RBC 3.76 L, Hgb 11.4 L, Hct 35.1 L, MCV 93.4, MCH 30.3, MCHC 32.5 D, RDW Std Deviation 46.1 H, RDW Coeff of Becca 13.4, Plt Count 214, MPV 10.9 03/06/20 04:50: Sodium 134 L, Potassium 3.8, Chloride 98, Carbon Dioxide 29.0, Anion Gap 7, BUN 58 H, Creatinine 1.70 H, Estim Creat Clear Calc 31.85, Est GFR (MDRD) Af Amer 50 L, Est GFR (MDRD) Non-Af 41 L, BUN/Creatinine Ratio 34.1 H, Glucose 163 H, Calcium 7.7 L, Total Bilirubin 0.40, AST 27, ALT 29, Alkaline Phosphatase 46, Total Protein 5.7 L, Albumin 2.4 L, Globulin 3.3, Albumin/Globulin Ratio 0.7 L Current Medications Acetaminophen (Acetaminophen 325 Mg Tablet) 650 mg PO Q6H PRN PRN PRN Reason: Pain Score 1-10/Temp > 100.7 F Last Admin: 03/05/20 00:05 Dose: 650 mg Documented by: Al Hydroxide/Mg Hydroxide (Mag Hydrox/Al Hydrox/Simeth 30 Ml Udc) 30 ml PO Q6H PRN PRN PRN Reason: Gastric Burning Albuterol Sulfate (Albuterol Sulfate 8 Gm Inhaler (60 Puffs)) 4 - 8 puff INHALATION Q4H PRN PRN PRN Reason: Dyspnea, wheezing Albuterol/Ipratropium (Ipratropium/Albuterol Sulfate 3 Ml Ampul.Neb) 3 ml INHALATION Q6HWA.RT [facility] Last Admin: 03/05/20 19:33 Dose: 3 ml Documented by: Aspirin (Aspirin 81 Mg Tab.Chew) 81 mg PO DAILY [facility] Last Admin: 03/05/20 10:53 Dose: 81 mg Documented by: Dexamethasone Sodium Phosphate (Dexamethasone 10 Mg/Ml Vial) 6 mg IV DAILY [facility] Last Admin: 03/05/20 10:53 Dose: 6 mg Documented by: Enoxaparin Sodium (Enoxaparin 30 Mg/0.3 Ml Syringe) 30 mg SC BID [facility] Last Admin: 03/05/20 20:37 Dose: 30 mg Documented by: Guaifenesin (Guaifenesin 10 Ml Udc (200mg/10ml)) 20 ml PO Q4H PRN PRN PRN Reason: COUGH Hydralazine HCl (Hydralazine 20 Mg/Ml Vial) 10 mg IV Q4H PRN PRN PRN Reason: SBP > 160 Remdesivir 100 mg/ Sodium (Chloride) 250 mls @ 125 mls/hr IV DAILY [facility]; Protocol Stop: 03/08/20 11:59 Last Infusion: 03/05/20 12:53 Dose: Infused Documented by: Lamotrigine (Lamotrigine 100 Mg Tablet) 100 mg PO BID [facility] Last Admin: 03/05/20 20:37 Dose: 100 mg Documented by: Magnesium Hydroxide (Magnesium Hydroxide 30 Ml Udc) 30 ml PO DAILY PRN PRN PRN Reason: Constipation Ondansetron HCl (Ondansetron 4 Mg/2 Ml Vial) 4 mg IV Q8H PRN PRN PRN Reason: NAUSEA/VOMITING Prochlorperazine Edisylate (Prochlorperazine 10 Mg/2 Ml Vial) 5 mg IV Q4H PRN PRN PRN Reason: Breakthrough Nausea/Vomiting Psyllium Hydrophilic Mucilloid (Psyllium 1 Packet) 1 packet PO DAILY PRN PRN PRN Reason: Constipation Senna/Docusate Sodium (Senna/Docusate Sodium 1 Tablet) 2 tablet PO BID PRN PRN PRN Reason: Constipation Sodium Chloride (0.9% Saline Lock 10 Ml Syringe) 10 - 40 ml IV UD PRN PRN Reason: SALINE FLUSH Throat Lozenges (Benzocaine/Menthol 1 Lozenge) 1 lozenge MUCOUS MEM Q2H PRN PRN PRN Reason: SORE THROAT STROKE Vital Signs/Narrative: Vital Signs Pulse Resp BP Pulse Ox 03/06/20 07:00 78 29 H 120/71 95 03/06/20 06:00 71 32 H 115/73 95 03/06/20 05:13 70 27 H 95 03/06/20 05:00 70 31 H 110/67 94 03/06/20 04:54 70 30 H 95 03/06/20 04:00 70 31 H 106/75 95 Medical Necessity - Tobacco Use Smoking Status: Never smoker - Patient listed is a tobacco user in the past however daughter Tala notes that he was never a smoker. Tobacco Use: Non-smoker Assessment/Plan All Active Problems Pneumonia due to COVID-19 virus (Acute) Respiratory failure (Acute) FREDY (acute kidney injury) (Acute) Acute respiratory failure with hypoxia (Acute) Cellulitis of right lower extremity (Acute) This 84 okay patient with history of COPD not on home oxygen, coronary artery disease with pacemaker and other multiple comorbidities was admitted with fever chills, cough, shortness of breath worse on exertion, hypoxia, altered mental status, sore throat, chest tightness, fatigue and diaphoresis for several days. Patient was found 84% on room air, then 4 L of oxygen nasal cannula and finally on BiPAP after he did not improve. ABG showed respiratory acidosis with PCO2 85 and CO2 35. CTA chest reviewed. No pulmonary embolism. Bilateral groundglass opacity, predominantly basal consolidations, upper lobes subsegmental groundglass opacity, left upper lobe more than right upper lobe and small left pleural effusion 1. Acute hypoxic and hypercarbic combined respiratory failure secondary to COPD exacerbation and bilateral pneumonia: Patient is being admitted in ICU on BiPAP. Inflammatory markers are elevated. COVID-19 PCR positive. Procalcitonin 0.36. D-dimer 2.73. Aggressive bronchopulmonary hygiene. ID consult. Repeat ABG shows improvement of PCO2, 7.32/59/73/30 on BiPAP 50% FiO2. ABG suggestive of acute respiratory acidosis. On bronchodilator, Lovenox, Decadron and remdesivir. 03/06: Continue the above treatment. BiPAP rescue and at night. 2. Acute encephalopathy mainly metabolic and infectious etiologies: Treat underlying disorder. Encephalopathy is much improved. Patient is awake and alert. 3. Acute kidney injury versus underlying CKD stage 3: Patient estimated creatinine clearance was around 66, creatinine 0.9 in February 2016 BUN/creatinine elevated 40/1.79. Repeat labs shows improvement in creatinine but BUN went up to 46. 03/06: BUN/creatinine little elevated 58/1.7. Patient not on diuretic. 4. CAD: Patient with history of UT and status post pacemaker status, serial troponin enzymes are elevated but plateaued 0.054, 0.0522, was 0.077. Patient denies chest pain. Twelve-lead EKG shows right bundle branch block, LAD, paced rhythm at 71 bpm. Continue aspirin, clarifying if on beta-leonarda, LYNN inhibitor/ARB, statin therapy. 5. Dementia with behavioral component unclear type with history of anxiety and depression: PT/OT/case management consultation for discharge planning, fall precautions and aspiration precautions. 6. Diabetes mellitus type II: A1c 5.7 shows good glucose control. Blood sugar in the range of 117-130. 7. Seizure disorder: Patient with history of focal seizures, continue home lamotrigine regimen, fall precautions. 8. Hypertension: BP improved 117/89. 9. Hyperlipidemia: 10. Other comorbidities include former tobacco use, obstructive sleep apnea former tobacco use: 11. DVT prophylaxis: SCDs, Lovenox. CODE STATUS DNR CC arrest no intubation Inpatient E&M: 61977 Subs Hosp L3
[2020-03-06] MEDS: Ipratropium/Albuterol Sulfate 3 ML AMPUL.NEB INHALATION ×3 (07:22→18:25)
[2020-03-06] MEDS: lamoTRIgine 100 MG Tablet PO ×2 (08:26→21:57)
[2020-03-06] MEDS: Aspirin 81 MG TAB.CHEW PO (08:27)
[2020-03-06] MEDS: Enoxaparin 30 MG/0.3 ML Syringe SC ×2 (08:28→21:57)
[2020-03-06] MEDS: dexAMETHasone 10 MG/ML Vial 6 MG IV (08:28)
[2020-03-06] MEDS: Insulin Lispro 100 UNIT/ML INSULN.PEN SC (22:01)
[2020-03-06 22:20] LABS: Bedside Glucose 220 mg/dL (70-110)
[2020-03-07] VITALS (37 sets, daily range): BP systolic 98–156; BP diastolic 59–109; PULSE 70–93; RESP 14–31; TEMP 36.4–36.7; O2SAT 88–97
[2020-03-07 03:55] LABS: Hematocrit 37.4 % (40-54); Mean Corp Hgb Conc 32.1 g/dL (32-36); Mean Corpuscular Hgb 29.6 pg (27.0-32.0); Mean Corpuscular Volume 92.3 fL (80-94); Mean Platelet Vol. 10.4 fl (6.2-12.0); Platelet Count 230 K/mm3 (150-450); RBC Distribution Width CV 13.2 % (11.6-14.6); Red Blood Count 4.05 M/mm3 (4.6-6.2); White Blood Count 8.8 K/mm3 (4.4-11.0)
[2020-03-07 04:11] LABS: ALB/GLOB Ratio 0.8 RATIO (0.9-2.4); AST(SGOT) 25 U/L (15-37); Alanine Aminotransfer ALT/SGPT 28 U/L (16-61); Albumin, Serum 2.5 g/dL (3.2-5.0); Alkaline Phosphatase 44 U/L (45-117); Anion Gap 6 (5-15); BUN 53 mg/dL (7-18); BUN/Creat Ratio 34.4 RATIO (10-20); Calcium,Total 7.9 mg/dL (8.5-10.1); Chloride 102 mmol/L (98-107); Creatinine, Serum 1.54 mg/dL (0.70-1.30); EST Glomerular Filtration Rate 46 mL/min (>60); Est Glom Filt Rate - Afr Amer 56 mL/min (>60); Estimated Creatinine Clearance 35.16 ml/min; Globulin 3.3 g/dL (2.2-4.2); Glucose 170 mg/dL (74-106); Protein, Total 5.8 g/dL (6.4-8.2); Sodium Level 138 mmol/L (136-145)
[2020-03-07] MEDS: BENZOCAINE/MENTHOL 1 LOZENGE MUCOUS MEM ×2 (05:03→08:47)
[2020-03-07] MEDS: Insulin Lispro 100 UNIT/ML INSULN.PEN SC ×3 (06:14→21:34)
[2020-03-07] MEDS: Ipratropium/Albuterol Sulfate 3 ML AMPUL.NEB INHALATION ×3 (06:43→19:46)
--- NOTE | 2020-03-07 07:18 | PN_ITS ---
Subjective: Patient did okay overnight. Patient is up to 90% FiO2 on Airvo to maintain saturations, but subjectively reports he feels his breathing is improved compared to yesterday. Patient is only achieving 500 to 750 cc on incentive spirometer. Patient denies any abdominal pain, nausea or vomiting. General: Alert, Oriented x3, Cooperative, No apparent distress, - - Mild conversational dyspnea. Obese. Appears stated age. HEENT: Atraumatic, PERRLA, EOMI, Normocephalic, - - No scleral icterus or inj ection noted Oral: Moist Mucosa, No Gingival or Mucosal Lesions/ Ulcerations Neck: Supple, No JVD, No Nodes, Trachea Midline Lungs: No rhonchi, No wheeze, No rales, Diminished Cardiovascular: Regular rate, Regular Rhythm, Normal S1, Normal S2, No murmurs, No rub noted, No Gallop, - - Some pacer spikes noted on telemetry Abdomen: Bowel Sounds Present, Soft, Non Tender, Non-Distended Extremities: No clubbing, No cyanosis, Edema - Trace lower extremity Skin: No rashes, No breakdown Musculoskeletal: No Tenderness to Palpation of Joints or Extremities Lymphatic: No Cervical, Supraclavicular, or Inguinal Adenopathy Neurological: Cranial nerves II-XII grossly intact, Neuro grossly intact, Motor Exam 5/5 strength throughout Psych/Mental Status: Alert and oriented to time, place, person, mood and affect Vital Signs Temp Pulse Resp BP Pulse Ox 36.4 C L 72 26 H 149/79 H 91 03/07/20 05:00 03/07/20 07:00 03/07/20 07:00 03/07/20 07:00 03/07/20 07:00 Oxygen Flow Rate (L/min) 60 Oxygen Delivery Method Airvo Weight: 91.5 kg Body Mass Index (BMI) 28.9 Intake and Output for Last 24 Hours 03/05/20 03/06/20 03/07/20 23:59 23:59 23:59 Intake Total 1650 / 1872 1432 / 1672 360 / 360 Output Total 800 / 950 1675 / 1950 775 / 775 Balance 850 / 922 -243 / -278 -415 / -415 Labs (Last 48 Hours) 03/05/20 03/06/20 03/06/20 23:02 04:50 04:50 WBC 8.2 RBC 3.76 L Hgb 11.4 L Hct 35.1 L MCV 93.4 MCH 30.3 MCHC 32.5 D RDW Std Deviation 46.1 H RDW Coeff of Becca 13.4 Plt Count 214 MPV 10.9 Sodium 134 L Potassium 3.8 Chloride 98 Carbon Dioxide 29.0 Anion Gap 7 BUN 58 H Creatinine 1.70 H Estim Creat Clear Calc 31.85 Est GFR (MDRD) Af Amer 50 L Est GFR (MDRD) Non-Af 41 L BUN/Creatinine Ratio 34.1 H Glucose 163 H Calcium 7.7 L Total Bilirubin 0.40 AST 27 ALT 29 Alkaline Phosphatase 46 Total Protein 5.7 L Albumin 2.4 L Globulin 3.3 Albumin/Globulin Ratio 0.7 L POC Glucose 162 H 03/06/20 03/07/20 03/07/20 21:56 03:45 03:45 WBC 8.8 RBC 4.05 L Hgb 12.0 L Hct 37.4 L MCV 92.3 MCH 29.6 MCHC 32.1 RDW Std Deviation 45.0 H RDW Coeff of Becca 13.2 Plt Count 230 MPV 10.4 Sodium 138 Potassium 4.0 Chloride 102 Carbon Dioxide 30.0 Anion Gap 6 BUN 53 H Creatinine 1.54 H Estim Creat Clear Calc 35.16 Est GFR (MDRD) Af Amer 56 L Est GFR (MDRD) Non-Af 46 L BUN/Creatinine Ratio 34.4 H Glucose 170 H Calcium 7.9 L Total Bilirubin 0.40 AST 25 ALT 28 Alkaline Phosphatase 44 L Total Protein 5.8 L Albumin 2.5 L Globulin 3.3 Albumin/Globulin Ratio 0.8 L POC Glucose 220 H Microbiology 03/04/20 11:05 Blood Culture (Wb) - Anticubital Right Blood Culture - Preliminary No growth in 48 hours. 03/04/20 11:12 Blood Culture (Wb) - Anticubital Left Blood Culture - Preliminary No growth in 48 hours. 03/05/20 05:45 Urine Catheter - Catheter Legionella Antigen - Final 03/05/20 05:45 Urine Catheter - Catheter Streptococcus pneumoniae Antigen (M - Final Medical Necessity - Tobacco Use Smoking Status: Never smoker - Patient listed is a tobacco user in the past however daughter Tala notes that he was never a smoker. Tobacco Use: Non-smoker Assessment/Plan All Active Problems Pneumonia due to COVID-19 virus (Acute) Respiratory failure (Acute) FREDY (acute kidney injury) (Acute) Acute respiratory failure with hypoxia (Acute) Cellulitis of right lower extremity (Acute) RECOMMENDATIONS: 1. Continue BiPAP nightly with Airvo heated high flow throughout the day. Wean FiO2 to maintain oxygen saturations at or above 90%. 2. Continue Decadron and remdesivir as ordered. Monitor liver and renal function accordingly. 3. Continue scheduled bronchodilator therapy while awake. 4. Encourage incentive spirometer use and mobilize patient as tolerated. IMPRESSIONS: 1. Acute on chronic combined respiratory failure secondary to COVID-19 pneumonia The patient has an apparent history of COPD and chronic oxygen dependency. He does appear to be in a state of exacerbation precipitated by his viral pneumonia. Plan to continue current supportive measures including the use of noninvasive positive pressure ventilatory support. The patient will be continued on Lovenox, Decadron and remdesivir. Liver and renal function will be monitored accordingly. Continue scheduled bronchodilator therapy as well while awake. Cannot exclude need for BiPAP later today. Stressed to the patient importance of pulmonary recruitment to decrease FiO2 requirements. 2. Encephalopathy Improved. Likely metabolic in etiology and related to CO2 retention. This has improved with noninvasive positive pressure ventilatory support. The patient is currently alert and interactive. 3. FREDY versus CKD Unclear baseline renal function. The patient did receive supplemental IV fluid hydration initially. We will plan to continue to monitor for now. No indication for renal replacement therapy. Patient appears to be stabilizing at approximately 1.5 of creatinine. Hold on Lasix today, but may need to administer if oxygenation becomes more compromised. 4. Coronary artery disease/COPD/unspecified seizure disorder/diabetes mellitus/hypertension/hyperlipidemia/advanced age Complicates care, management, recovery and prognosis. Continue home medications as indicated. Blood sugars are slightly elevated, but acceptable at this time. Inpatient E&M: 06403 [facility] Hosp L3
[2020-03-07] MEDS: Enoxaparin 30 MG/0.3 ML Syringe SC ×2 (08:47→20:23)
[2020-03-07] MEDS: dexAMETHasone 10 MG/ML Vial 6 MG IV (08:47)
[2020-03-07] MEDS: 0.9% Saline Lock 10 ML Syringe IV ×3 (08:47→20:23)
[2020-03-07] MEDS: Aspirin 81 MG TAB.CHEW PO ×2 (08:48)
[2020-03-07 10:06] LABS: Bedside Glucose 162 mg/dL (70-110)
[2020-03-07] MEDS: lamoTRIgine 100 MG Tablet PO ×2 (11:00→20:23)
[2020-03-07 11:40] LABS: Bedside Glucose 170 mg/dL (70-110)
--- NOTE | 2020-03-07 12:55 | CASEMGMT ---
Addendum entered by Vlad Bryson 03/07/20 14:49: TUAN CRUZ Note: call received from Dr. Smalls's office. They state they did not set up oxygen for patient. Call to [facility] and oxygen was set up through their office-2L NC continuous with concentrator and portability (by Dr. Smalls). patient also has a cpap. Mayito HOWELL Original Note: TUAN CRUZ Note: participated in ICU interdisciplinary rounds. Pt remains on Airvo, 60L/90% oxygen. Continues on remdesivir, passed mobility. DC Planning deferred. Patient has home oxygen and daughter Tala stated in assessment she would get informtion. Call to Tala, she states she does not know where oxygen was from or liter flow and does not plan to go to patient's home. States it was prescribed by Dr. Smalls. -Call to Dr. Jan Smalls's office to check on oxygen @ home. Awaiting call back from office. Mayito HOWELL
--- NOTE | 2020-03-07 15:15 | PCM.HP.ID ---
Problem List (1) Pneumonia due to COVID-19 virus Status: Acute Reason for Consult: covid Consulted by: Dr. Ash History of Present Illness: The patient is a 84 year old M presented with one week of weakness, cough, aches, diarrhea, fall at home. Dx with covid. Came to ED, CT showed no PE, admitted to icu on O2, dex, remdesivir. Feeling ok today. Full ROS performed and neg except as noted above. - Medical History Past Medical History (Chronic Problems): Chronic Problems CAD (coronary artery disease) (Chronic) Dementia (Chronic) Seizure disorder (Chronic) HTN (hypertension) (Chronic) HLD (hyperlipidemia) (Chronic) JAMIE (obstructive sleep apnea) (Chronic) Depression with anxiety (Chronic) Allergies/Adverse Reactions: Allergies oats Allergy (Verified 03/04/20 16:27) Shortness of breath Dry oats/oat dust w/ farming, not the food hay dust Allergy (Uncoded 03/04/20 16:27) Shortness of breath Home Medications: Ambulatory Orders Medication Instructions Recorded Lamotrigine 100 mg PO BID 03/04/20 - Social History Tobacco Use: non-smoker Vital Signs Temp Pulse Resp BP Pulse Ox 97.6 F L 71 24 H 127/72 H 94 03/07/20 05:00 03/07/20 13:32 03/07/20 13:32 03/07/20 10:00 03/07/20 13:32 Oxygen Flow Rate (L/min) 60 Oxygen Delivery Method Airvo Weight: 91.5 kg Body Mass Index (BMI) 28.9 Microbiology Past 72 Hours 03/04/20 05:45 Urine Culture - Final Urine, Catheterized Culture exhibits no growth. 03/04/20 11:05 Blood Culture - Preliminary Blood Culture (Wb) - Anticubital Right No growth in 48 hours. 03/04/20 11:12 Blood Culture - Preliminary Blood Culture (Wb) - Anticubital Left No growth in 48 hours. 03/05/20 05:45 Legionella Antigen - Final Urine Catheter - Catheter Streptococcus pneumoniae Antigen (M - Final 03/04/20 16:45 Respiratory Panel (PCR) - Final Mucosa - Nose Laboratory Tests Past 24 Hrs 03/07/20 03/07/20 03:45 03:45 WBC 8.8 RBC 4.05 L Hgb 12.0 L Hct 37.4 L MCV 92.3 MCH 29.6 MCHC 32.1 RDW Std Deviation 45.0 H RDW Coeff of Becca 13.2 Plt Count 230 MPV 10.4 Sodium 138 Potassium 4.0 Chloride 102 Carbon Dioxide 30.0 Anion Gap 6 BUN 53 H Creatinine 1.54 H Estim Creat Clear Calc 35.16 Est GFR (MDRD) Af Amer 56 L Est GFR (MDRD) Non-Af 46 L BUN/Creatinine Ratio 34.4 H Glucose 170 H Calcium 7.9 L Total Bilirubin 0.40 AST 25 ALT 28 Alkaline Phosphatase 44 L Total Protein 5.8 L Albumin 2.5 L Globulin 3.3 Albumin/Globulin Ratio 0.8 L - Other Studies Radiology: [] reviewed Other Studies: [] Route of nutrition/ use of supplements: [] Nutritional Intake: [] IV Site: [] Amezquita Catheter: [] - Physical Exam General: Alert, Cooperative, No apparent distress HEENT: Atraumatic, PERRLA, EOMI Neck: Supple, No Nodes Lungs: Diminished Cardiovascular: Regular rate, Regular Rhythm Abdomen: Soft, Non Tender, Non-Distended Extremities: No edema Skin: No rashes IV Site: Peripheral, without redness Musculoskeletal: No Tenderness to Palpation of Joints or Extremities Neurological: Cranial nerves II-XII grossly intact - Assessment/Plan Antibiotics: [] Assessment/Plan: [] Active and Suspected Problems Pneumonia due to COVID-19 virus (Acute) Respiratory failure (Acute) FREDY (acute kidney injury) (Acute) Acute respiratory failure with hypoxia (Acute) Diabetes mellitus, type II (Suspected) Former tobacco use (Suspected) Chronic obstructive pulmonary disease (COPD) (Suspected) covid with hypoxia - fever improved. Sx started around 02/28. D-dimer 2.7, CT neg for PE. On dex, remdesivir, lovenox 30mg bid. FREDY improved. Will follow, thank you
--- NOTE | 2020-03-07 18:19 | PN_ITS ---
Patient Problems: Active and Suspected Problems Pneumonia due to COVID-19 virus (Acute) Respiratory failure (Acute) FREDY (acute kidney injury) (Acute) Acute respiratory failure with hypoxia (Acute) Diabetes mellitus, type II (Suspected) Former tobacco use (Suspected) Chronic obstructive pulmonary disease (COPD) (Suspected) Subjective: Confused. Has pulled of Airvo and SpO2 down to 84%. C/O dryness in nares. No other complaints Vitals/I&O's: Vital Signs Temp Pulse Resp BP Pulse Ox 98.1 F 83 17 120/73 94 03/07/20 17:00 03/07/20 18:00 03/07/20 18:00 03/07/20 18:00 03/07/20 18:00 Oxygen Flow Rate (L/min) 60 Oxygen Delivery Method Airvo Weight: 91.5 kg Body Mass Index (BMI) 28.9 Intake and Output for Last 24 Hours 03/05/20 03/06/20 03/07/20 23:59 23:59 23:59 Intake Total 1650 / 1872 1432 / 1672 850 / 850 Output Total 800 / 950 1675 / 1950 1075 / 1075 Balance 850 / 922 -243 / -278 -225 / -225 General: Alert, Cooperative, Confused, - - oriented to location and self only HEENT: Atraumatic, Normocephalic Oral: Moist Mucosa, - - no thrush Neck: Supple, Trachea Midline Lungs: No rhonchi, No rales, Diminished, Wheezes - few scattered Cardiovascular: Regular rate, Regular Rhythm, Normal S1, Normal S2, No murmurs, No Ectopic Activity, No rub noted, No Gallop Abdomen: Bowel Sounds Present, Soft, Non Tender, Non-Distended, No Hepato- splenomegaly, No hernias noted Extremities: No clubbing, No cyanosis, No edema, Capillary Refill Less than 3 Seconds, Peripheral Pulses Normal Skin: No rashes, No breakdown Musculoskeletal: No Tenderness to Palpation of Joints or Extremities Neurological: Cranial nerves II-XII grossly intact, Neuro grossly intact Psych/Mental Status: Normal Affect, - - confused Microbiology Past 72 Hours 03/04/20 05:45 Urine, Catheterized Urine Culture - Final Culture exhibits no growth. 03/04/20 11:05 Blood Culture (Wb) - Anticubital Right Blood Culture - Preliminary No growth in 48 hours. 03/04/20 11:12 Blood Culture (Wb) - Anticubital Left Blood Culture - Preliminary No growth in 48 hours. 03/05/20 05:45 Urine Catheter - Catheter Legionella Antigen - Final 03/05/20 05:45 Urine Catheter - Catheter Streptococcus pneumoniae Antigen (M - Final 03/04/20 16:45 Mucosa - Nose Respiratory Panel (PCR) - Final Laboratory Results 03/06/20 21:56: POC Glucose 220 H 03/07/20 03:45: WBC 8.8, RBC 4.05 L, Hgb 12.0 L, Hct 37.4 L, MCV 92.3, MCH 29.6, MCHC 32.1, RDW Std Deviation 45.0 H, RDW Coeff of Becca 13.2, Plt Count 230, MPV 10.4 03/07/20 03:45: Sodium 138, Potassium 4.0, Chloride 102, Carbon Dioxide 30.0, Anion Gap 6, BUN 53 H, Creatinine 1.54 H, Estim Creat Clear Calc 35.16, Est GFR (MDRD) Af Amer 56 L, Est GFR (MDRD) Non-Af 46 L, BUN/Creatinine Ratio 34.4 H, Glucose 170 H, Calcium 7.9 L, Total Bilirubin 0.40, AST 25, ALT 28, Alkaline Phosphatase 44 L, Total Protein 5.8 L, Albumin 2.5 L, Globulin 3.3, Albumin/Globulin Ratio 0.8 L 03/07/20 06:10: POC Glucose 162 H 03/07/20 11:10: POC Glucose 170 H Current Medications Acetaminophen (Acetaminophen 325 Mg Tablet) 650 mg PO Q6H PRN PRN PRN Reason: Pain Score 1-10/Temp > 100.7 F Last Admin: 03/05/20 00:05 Dose: 650 mg Documented by: Al Hydroxide/Mg Hydroxide (Mag Hydrox/Al Hydrox/Simeth 30 Ml Udc) 30 ml PO Q6H PRN PRN PRN Reason: Gastric Burning Albuterol Sulfate (Albuterol Sulfate 8 Gm Inhaler (60 Puffs)) 4 - 8 puff INHALATION Q4H PRN PRN PRN Reason: Dyspnea, wheezing Albuterol/Ipratropium (Ipratropium/Albuterol Sulfate 3 Ml Ampul.Neb) 3 ml INHALATION Q6HWA.RT DAISY Last Admin: 03/07/20 13:32 Dose: 3 ml Documented by: Aspirin (Aspirin 81 Mg Tab.Chew) 81 mg PO DAILY [facility] Last Admin: 03/07/20 08:48 Dose: 81 mg Documented by: Dexamethasone Sodium Phosphate (Dexamethasone 10 Mg/Ml Vial) 6 mg IV DAILY [facility] Last Admin: 03/07/20 08:47 Dose: 6 mg Documented by: Enoxaparin Sodium (Enoxaparin 30 Mg/0.3 Ml Syringe) 30 mg SC BID [facility] Last Admin: 03/07/20 08:47 Dose: 30 mg Documented by: Guaifenesin (Guaifenesin 10 Ml Udc (200mg/10ml)) 20 ml PO Q4H PRN PRN PRN Reason: COUGH Hydralazine HCl (Hydralazine 20 Mg/Ml Vial) 10 mg IV Q4H PRN PRN PRN Reason: SBP > 160 Remdesivir 100 mg/ Sodium (Chloride) 250 mls @ 125 mls/hr IV DAILY [facility]; Pro tocol Stop: 03/08/20 11:59 Last Infusion: 03/07/20 13:00 Dose: Infused Documented by: Insulin Human Lispro (Insulin Lispro 100 Unit/Ml Insuln.Pen) 0 unit SC [facility]; Protocol Last Admin: 03/07/20 16:30 Dose: Not Given Documented by: Lamotrigine (Lamotrigine 100 Mg Tablet) 100 mg PO BID [facility] Last Admin: 03/07/20 11:00 Dose: 100 mg Documented by: Magnesium Hydroxide (Magnesium Hydroxide 30 Ml Udc) 30 ml PO DAILY PRN PRN PRN Reason: Constipation Ondansetron HCl (Ondansetron 4 Mg/2 Ml Vial) 4 mg IV Q8H PRN PRN PRN Reason: NAUSEA/VOMITING Prochlorperazine Edisylate (Prochlorperazine 10 Mg/2 Ml Vial) 5 mg IV Q4H PRN PRN PRN Reason: Breakthrough Nausea/Vomiting Psyllium Hydrophilic Mucilloid (Psyllium 1 Packet) 1 packet PO DAILY PRN PRN PRN Reason: Constipation Senna/Docusate Sodium (Senna/Docusate Sodium 1 Tablet) 2 tablet PO BID PRN PRN PRN Reason: Constipation Sodium Chloride (0.9% Saline Lock 10 Ml Syringe) 10 - 40 ml IV UD PRN PRN Reason: SALINE FLUSH Last Admin: 03/07/20 11:14 Dose: 10 ml Documented by: Throat Lozenges (Benzocaine/Menthol 1 Lozenge) 1 lozenge MUCOUS MEM Q2H PRN PRN PRN Reason: SORE THROAT Last Admin: 03/07/20 08:47 Dose: 1 lozenge Documented by: STROKE Vital Signs/Narrative: Vital Signs Temp Pulse Resp BP Pulse Ox 03/07/20 18:00 83 17 120/73 94 03/07/20 17:00 98.1 F 83 28 H 125/87 H 94 03/07/20 16:00 80 20 H 99/68 96 03/07/20 15:00 70 26 H 101/59 L 97 Medical Necessity - Tobacco Use Smoking Status: Never smoker - Patient listed is a tobacco user in the past however daughter Tala notes that he was never a smoker. Tobacco Use: Non-smoker Assessment/Plan All Active Problems Pneumonia due to COVID-19 virus (Acute) Respiratory failure (Acute) FREDY (acute kidney injury) (Acute) Acute respiratory failure with hypoxia (Acute) Cellulitis of right lower extremity (Acute) Acute on Chronic Hypoxic/Hypercapnic Respiratory Failure 2/2 COVID PNA and COPD -pt with baseline O2 requirements 2/2 to COPD -on Remdesivir and Decadron -On Airvo at 75% wiht BIPAP at HS -continue support -add nasal spray for dry nasal passages -Pulm and ID following FREDY on ? CKD -sCr trending down -monitor Mild Acute Anemia -counts trending up -monitor Acute Metabolic Encephalopathy -remains confused -continue to treat underlying disorders -has some baseline dementia as well CAD/HTN/HPL -had some mild troponin elevation -stable EKG -continue asa Seizure d/o -continue home meds Dementia -baseline unclear JAMIE -BIPAP at HS DM-2 -BGT up some with steroids -monitor for further needs -consider Lantus if BGT remain on higher end DVT prophylaxis -lovenox 30 mg BID Code status -DNR-CCA Inpatient E&M: 83731 Subs Hosp L2
[2020-03-07 21:51] LABS: Bedside Glucose 189 mg/dL (70-110)
[2020-03-08] VITALS (43 sets, daily range): BP systolic 102–161; BP diastolic 58–100; PULSE 70–103; RESP 14–31; TEMP 36.4–36.8; O2SAT 86–97
[2020-03-08] MEDS: Ipratropium/Albuterol Sulfate 3 ML AMPUL.NEB INHALATION ×4 (02:13→19:15)
[2020-03-08 04:34] LABS: Hematocrit 38.4 % (40-54); Hemoglobin 12.4 g/dL (13.0-16.5); Mean Corp Hgb Conc 32.3 g/dL (32-36); Mean Corpuscular Hgb 29.5 pg (27.0-32.0); Mean Corpuscular Volume 91.4 fL (80-94); Mean Platelet Vol. 10.8 fl (6.2-12.0); Platelet Count 291 K/mm3 (150-450); RBC Distribution Width CV 13.4 % (11.6-14.6); RBC Distribution Width SD 45.1 fl (35.1-43.9); White Blood Count 12.6 K/mm3 (4.4-11.0)
[2020-03-08 04:53] LABS: ALB/GLOB Ratio 0.7 RATIO (0.9-2.4); AST(SGOT) 82 U/L (15-37); Alanine Aminotransfer ALT/SGPT 50 U/L (16-61); Albumin, Serum 2.6 g/dL (3.2-5.0); Alkaline Phosphatase 48 U/L (45-117); Anion Gap 6 (5-15); BUN 52 mg/dL (7-18); Calcium,Total 8.2 mg/dL (8.5-10.1); Chloride 101 mmol/L (98-107); Creatinine, Serum 1.53 mg/dL (0.70-1.30); EST Glomerular Filtration Rate 46 mL/min (>60); Est Glom Filt Rate - Afr Amer 56 mL/min (>60); Estimated Creatinine Clearance 35.39 ml/min; Globulin 3.6 g/dL (2.2-4.2); Glucose 135 mg/dL (74-106); Potassium 4.8 mmol/L (3.5-5.1); Protein, Total 6.2 g/dL (6.4-8.2); Sodium Level 136 mmol/L (136-145)
[2020-03-08 06:50] LABS: Bedside Glucose 119 mg/dL (70-110)
[2020-03-08] MEDS: QUEtiapine 25 MG Tablet 50 MG PO ×2 (07:04→19:43)
[2020-03-08] MEDS: guaiFENesin 10 ML UDC (200MG/10ML) 20 ML PO (08:55)
[2020-03-08] MEDS: dexAMETHasone 10 MG/ML Vial 6 MG IV (08:55)
[2020-03-08] MEDS: Aspirin 81 MG TAB.CHEW PO ×2 (08:55→08:56)
[2020-03-08] MEDS: lamoTRIgine 100 MG Tablet PO ×2 (08:55→19:44)
[2020-03-08] MEDS: Enoxaparin 30 MG/0.3 ML Syringe SC ×2 (08:56→19:44)
[2020-03-08] MEDS: Haloperidol Lactate 5 MG/ML Vial IV (09:00)
--- NOTE | 2020-03-08 09:04 | PCM.PN.INT ---
Subjective: Patient was significant confusion overnight. Patient had been pulling on his Amezquita to the point that it was removed secondary to concerns for trauma. Patient has required higher oxygen through BiPAP to maintain saturations. Patient is not able to provide much additional information at this time. General: Confused, Disoriented, Non-Cooperative, - - Intermittently agitated. HEENT: Atraumatic, PERRLA, EOMI, Normocephalic, - - Scleral injection without icterus Oral: Moist Mucosa, No Gingival or Mucosal Lesions/ Ulcerations Neck: Supple, No JVD, No Nodes, Trachea Midline Lungs: No rhonchi, No wheeze, No rales, Diminished, - - Symmetric expansion. No dullness to percussion Cardiovascular: Regular rate, Regular Rhythm, Normal S1, Normal S2, No murmurs, No rub noted, No Gallop Abdomen: Bowel Sounds Present, Soft, Non Tender, Non-Distended Extremities: No clubbing, No cyanosis, Edema - Trace lower extremity Skin: - - No change compared to previous Musculoskeletal: No Tenderness to Palpation of Joints or Extremities Lymphatic: No Cervical, Supraclavicular, or Inguinal Adenopathy Neurological: Cranial nerves II-XII grossly intact, Neuro grossly intact, Motor Exam 5/5 strength throughout Psych/Mental Status: Anxious, Impulsive, Restless Vital Signs Temp Pulse Resp BP Pulse Ox 36.8 C 71 22 H 117/73 92 03/08/20 04:00 03/08/20 07:00 03/08/20 07:00 03/08/20 07:00 03/08/20 07:00 Oxygen Flow Rate (L/min) 60 Oxygen Delivery Method Bi-pap Weight: 92.1 kg Body Mass Index (BMI) 28.9 Intake and Output for Last 24 Hours 03/06/20 03/07/20 03/08/20 23:59 23:59 23:59 Intake Total 1432 / 1672 850 / 1090 360 / 360 Output Total 1675 / 1950 1075 / 1525 850 / 850 Balance -243 / -278 -225 / -435 -490 / -490 Labs (Last 48 Hours) 03/06/20 03/07/20 03/07/20 21:56 03:45 03:45 WBC 8.8 RBC 4.05 L Hgb 12.0 L Hct 37.4 L MCV 92.3 MCH 29.6 MCHC 32.1 RDW Std Deviation 45.0 H RDW Coeff of Becca 13.2 Plt Count 230 MPV 10.4 Sodium 138 Potassium 4.0 Chloride 102 Carbon Dioxide 30.0 Anion Gap 6 BUN 53 H Creatinine 1.54 H Estim Creat Clear Calc 35.16 Est GFR (MDRD) Af Amer 56 L Est GFR (MDRD) Non-Af 46 L BUN/Creatinine Ratio 34.4 H Glucose 170 H Calcium 7.9 L Total Bilirubin 0.40 AST 25 ALT 28 Alkaline Phosphatase 44 L Total Protein 5.8 L Albumin 2.5 L Globulin 3.3 Albumin/Globulin Ratio 0.8 L POC Glucose 220 H 03/07/20 03/07/20 03/07/20 06:10 11:10 21:32 WBC RBC Hgb Hct MCV MCH MCHC RDW Std Deviation RDW Coeff of Becca Plt Count MPV Sodium Potassium Chloride Carbon Dioxide Anion Gap BUN Creatinine Estim Creat Clear Calc Est GFR (MDRD) Af Amer Est GFR (MDRD) Non-Af BUN/Creatinine Ratio Glucose Calcium Total Bilirubin AST ALT Alkaline Phosphatase Total Protein Albumin Globulin Albumin/Globulin Ratio POC Glucose 162 H 170 H 189 H 03/08/20 03/08/20 03/08/20 04:20 04:20 06:17 WBC 12.6 H RBC 4.20 L Hgb 12.4 L Hct 38.4 L MCV 91.4 MCH 29.5 MCHC 32.3 RDW Std Deviation 45.1 H RDW Coeff of Becca 13.4 Plt Count 291 MPV 10.8 Sodium 136 Potassium 4.8 Chloride 101 Carbon Dioxide 29.0 Anion Gap 6 BUN 52 H Creatinine 1.53 H Estim Creat Clear Calc 35.39 Est GFR (MDRD) Af Amer 56 L Est GFR (MDRD) Non-Af 46 L BUN/Creatinine Ratio 34.0 H Glucose 135 H Calcium 8.2 L Total Bilirubin 0.50 AST 82 H ALT 50 Alkaline Phosphatase 48 Total Protein 6.2 L Albumin 2.6 L Globulin 3.6 Albumin/Globulin Ratio 0.7 L POC Glucose 119 H Microbiology 03/04/20 05:45 Urine, Catheterized Urine Culture - Final Culture exhibits no growth. 03/04/20 11:05 Blood Culture (Wb) - Anticubital Right Blood Culture - Preliminary No growth in 48 hours. 03/04/20 11:12 Blood Culture (Wb) - Anticubital Left Blood Culture - Preliminary No growth in 48 hours. Medical Necessity - Tobacco Use Smoking Status: Never smoker - Patient listed is a tobacco user in the past however daughter Tala notes that he was never a smoker. Tobacco Use: Non-smoker Assessment/Plan All Active Problems Pneumonia due to COVID-19 virus (Acute) Respiratory failure (Acute) FREDY (acute kidney injury) (Acute) Acute respiratory failure with hypoxia (Acute) Cellulitis of right lower extremity (Acute) RECOMMENDATIONS: 1. Continue BiPAP throughout the day. Wean FiO2 to maintain oxygen saturations at or above 90%. 2. Continue Decadron and remdesivir as ordered. Monitor liver and renal function accordingly. 3. Continue scheduled bronchodilator therapy while awake. 4. Encourage incentive spirometer use and mobilize patient as tolerated. 5. Initiate Seroquel 6. Diuretic challenge IMPRESSIONS: 1. Acute on chronic combined respiratory failure secondary to COVID-19 pneumonia The patient has an apparent history of COPD and chronic oxygen dependency. He does appear to be in a state of exacerbation precipitated by his viral pneumonia. Plan to continue current supportive measures including the use of noninvasive positive pressure ventilatory support. The patient will be continued on Lovenox, Decadron and remdesivir. Liver and renal function will be monitored accordingly. Continue scheduled bronchodilator therapy as well while awake. Continue BiPAP for now. Patient is a DNR Comfort Care arrest without intubation. Seroquel will be added to help with BiPAP synchrony. 2. Encephalopathy Deteriorated, likely secondary to delirium. Likely metabolic in etiology and related to CO2 retention. This has improved with noninvasive positive pressure ventilatory support. Patient will be moved closer to the nurses station 3. FREDY versus CKD Unclear baseline renal function. The patient did receive supplemental IV fluid hydration initially. We will plan to continue to monitor for now. No indication for renal replacement therapy. Patient appears to be stabilizing at approximately 1.5 of creatinine. Diuretic challenge given worsening respiratory failure 4. Coronary artery disease/COPD/unspecified seizure disorder/diabetes mellitus/hypertension/hyperlipidemia/advanced age Complicates care, management, recovery and prognosis. Continue home medications as indicated. Blood sugars are slightly elevated, but acceptable at this time. TIME: 33 minutes critical care time spent addressing patient's acute hypoxic respiratory failure, acute delirium, CKD, review of all data and collaboration with care team (7 AM to 8 AM) [id number]: [id number] Critical care first hour
--- NOTE | 2020-03-08 09:26 | CPS ---
Pt. took AirVo cannula off in the morning, stating that he needed to use bathroom. Pt. desatted, and the AVAPS mode was initiated on the pt. for alveolar recruitment and oxygen needs.
[2020-03-08] MEDS: Furosemide 20 MG/2 ML VIAL IV (10:04)
--- NOTE | 2020-03-08 11:10 | CPS ---
Pt. was attempting to rip off BiPAP mask, and he was very agitated while wearing it. Pt. is maxed out on AirVo at this time, and he's oxygenating fine.
--- NOTE | 2020-03-08 11:22 | NURSING ---
was asked to see patient for wounds to the right mckeon. patient has some dried scabs noted. no surrounding erythema noted. no need for wound care at this time. 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
[2020-03-08] MEDS: Insulin Lispro 100 UNIT/ML INSULN.PEN SC ×2 (17:00→20:10)
--- NOTE | 2020-03-08 19:18 | CPS ---
FiO2 turned down to 63% on Airvo
--- NOTE | 2020-03-08 19:29 | PN_ITS ---
Patient Problems: Active and Suspected Problems Pneumonia due to COVID-19 virus (Acute) Respiratory failure (Acute) FREDY (acute kidney injury) (Acute) Acute respiratory failure with hypoxia (Acute) Diabetes mellitus, type II (Suspected) Former tobacco use (Suspected) Chronic obstructive pulmonary disease (COPD) (Suspected) Subjective: Very confused. Have been able to wean O2 some today. Vitals/I&O's: Vital Signs Temp Pulse Resp BP Pulse Ox 97.6 F L 87 22 H 147/79 H 95 03/08/20 16:00 03/08/20 19:19 03/08/20 19:19 03/08/20 19:00 03/08/20 19:16 Oxygen Flow Rate (L/min) 60 Oxygen Delivery Method Airvo Weight: 92.1 kg Body Mass Index (BMI) 28.9 Intake and Output for Last 24 Hours 03/06/20 03/07/20 03/08/20 23:59 23:59 23:59 Intake Total 1432 / 1672 850 / 1090 880 / 880 Output Total 1675 / 1950 1075 / 1525 2950 / 2950 Balance -243 / -278 -225 / -435 -2069 / -2069 General: Alert, Cooperative, No apparent distress, Well developed, Well nourished, Confused, - - elderly WM sitting up in a chair watching TV HEENT: Atraumatic, Normocephalic Oral: Moist Mucosa, - - thrush Neck: Supple, Trachea Midline Lungs: No rhonchi, No wheeze, No rales, Diminished Cardiovascular: Regular rate, Regular Rhythm, Normal S1, Normal S2, No murmurs, No Ectopic Activity, No rub noted, No Gallop Abdomen: Bowel Sounds Present, Soft, Non Tender, Non-Distended Extremities: No clubbing, No cyanosis, No edema, Capillary Refill Less than 3 Seconds, Peripheral Pulses Normal Skin: No rashes, No breakdown Musculoskeletal: No Tenderness to Palpation of Joints or Extremities, No Muscle Wasting, Arthritic Changes Neurological: Cranial nerves II-XII grossly intact, Neuro grossly intact Psych/Mental Status: - - pleasantly confused Microbiology Past 72 Hours 03/04/20 05:45 Urine, Catheterized Urine Culture - Final Culture exhibits no growth. 03/04/20 11:05 Blood Culture (Wb) - Anticubital Right Blood Culture - Preliminary No growth in 48 hours. 03/04/20 11:12 Blood Culture (Wb) - Anticubital Left Blood Culture - Preliminary No growth in 48 hours. Laboratory Results 03/07/20 21:32: POC Glucose 189 H 03/08/20 04:20: WBC 12.6 H, RBC 4.20 L, Hgb 12.4 L, Hct 38.4 L, MCV 91.4, MCH 29.5, MCHC 32.3, RDW Std Deviation 45.1 H, RDW Coeff of Becca 13.4, Plt Count 291, MPV 10.8 03/08/20 04:20: Sodium 136, Potassium 4.8, Chloride 101, Carbon Dioxide 29.0, Anion Gap 6, BUN 52 H, Creatinine 1.53 H, Estim Creat Clear Calc 35.39, Est GFR (MDRD) Af Amer 56 L, Est GFR (MDRD) Non-Af 46 L, BUN/Creatinine Ratio 34.0 H, Glucose 135 H, Calcium 8.2 L, Total Bilirubin 0.50, AST 82 H, ALT 50, Alkaline Phosphatase 48, Total Protein 6.2 L, Albumin 2.6 L, Globulin 3.6, Albumin/Globulin Ratio 0.7 L 03/08/20 06:17: POC Glucose 119 H Current Medications Acetaminophen (Acetaminophen 325 Mg Tablet) 650 mg PO Q6H PRN PRN PRN Reason: Pain Score 1-10/Temp > 100.7 F Last Admin: 03/05/20 00:05 Dose: 650 mg Documented by: Al Hydroxide/Mg Hydroxide (Mag Hydrox/Al Hydrox/Simeth 30 Ml Udc) 30 ml PO Q6H PRN PRN PRN Reason: Gastric Burning Albuterol Sulfate (Albuterol Sulfate 8 Gm Inhaler (60 Puffs)) 4 - 8 puff INHALATION Q4H PRN PRN PRN Reason: Dyspnea, wheezing Albuterol/Ipratropium (Ipratropium/Albuterol Sulfate 3 Ml Ampul.Neb) 3 ml INHALATION Q6HWA.RT [facility] Last Admin: 03/08/20 19:15 Dose: 3 ml Documented by: Aspirin (Aspirin 81 Mg Tab.Chew) 81 mg PO DAILY [facility] Last Admin: 03/08/20 08:56 Dose: 81 mg Documented by: Dexamethasone Sodium Phosphate (Dexamethasone 10 Mg/Ml Vial) 6 mg IV DAILY [facility] Last Admin: 03/08/20 08:55 Dose: 6 mg Documented by: Enoxaparin Sodium (Enoxaparin 30 Mg/0.3 Ml Syringe) 30 mg SC BID [facility] Last Admin: 03/08/20 08:56 Dose: 30 mg Documented by: Guaifenesin (Guaifenesin 10 Ml Udc (200mg/10ml)) 20 ml PO Q4H PRN PRN PRN Reason: COUGH Last Admin: 03/08/20 08:55 Dose: 20 ml Documented by: Hydralazine HCl (Hydralazine 20 Mg/Ml Vial) 10 mg IV Q4H PRN PRN PRN Reason: SBP > 160 Insulin Human Lispro (Insulin Lispro 100 Unit/Ml Insuln.Pen) 0 unit SC [facility]; Protocol Last Admin: 03/08/20 17:00 Dose: 1 u Documented by: Lamotrigine (Lamotrigine 100 Mg Tablet) 100 mg PO BID [facility] Last Admin: 03/08/20 08:55 Dose: 100 mg Documented by: Magnesium Hydroxide (Magnesium Hydroxide 30 Ml Udc) 30 ml PO DAILY PRN PRN PRN Reason: Constipation Ondansetron HCl (Ondansetron 4 Mg/2 Ml Vial) 4 mg IV Q8H PRN PRN PRN Reason: NAUSEA/VOMITING Prochlorperazine Edisylate (Prochlorperazine 10 Mg/2 Ml Vial) 5 mg IV Q4H PRN PRN PRN Reason: Breakthrough Nausea/Vomiting Psyllium Hydrophilic Mucilloid (Psyllium 1 Packet) 1 packet PO DAILY PRN PRN PRN Reason: Constipation Quetiapine Fumarate (Quetiapine 25 Mg Tablet) 50 mg PO BID [facility] Senna/Docusate Sodium (Senna/Docusate Sodium 1 Tablet) 2 tablet PO BID PRN PRN PRN Reason: Constipation Sodium Chloride (0.9% Saline Lock 10 Ml Syringe) 10 - 40 ml IV UD PRN PRN Reason: SALINE FLUSH Last Admin: 03/07/20 20:23 Dose: 20 ml Documented by: Sodium Chloride (Sodium Chloride 0.65% 1 [place].Btl) 2 spray NASAL TID PRN PRN PRN Reason: NASAL DRYNESS Throat Lozenges (Benzocaine/Menthol 1 Lozenge) 1 lozenge MUCOUS MEM Q2H PRN PRN PRN Reason: SORE THROAT Last Admin: 03/07/20 08:47 Dose: 1 lozenge Documented by: STROKE Vital Signs/Narrative: Vital Signs Temp Pulse Resp BP Pulse Ox 03/08/20 19:19 87 22 H 03/08/20 19:16 89 19 H 95 03/08/20 19:00 82 18 147/79 H 95 03/08/20 18:00 93 30 H 132/73 H 86 03/08/20 17:20 97 28 H 91 03/08/20 17:00 85 30 H 151/74 H 94 03/08/20 16:00 97.6 F L 82 29 H 156/75 H 93 Medical Necessity - Tobacco Use Smoking Status: Never smoker - Patient listed is a tobacco user in the past however daughter Tala notes that he was never a smoker. Tobacco Use: Non-smoker Assessment/Plan All Active Problems Pneumonia due to COVID-19 virus (Acute) Respiratory failure (Acute) FREDY (acute kidney injury) (Acute) Acute respiratory failure with hypoxia (Acute) Cellulitis of right lower extremity (Acute) Acute on Chronic Hypoxic/Hypercapnic Respiratory Failure 2/2 COVID PNA and COPD -pt with baseline O2 requirements 2/2 to COPD -on Remdesivir and Decadron -On Airvo at 66% and flow 60 LPM with BIPAP at HS -continue support -nasal spray for dry nasal passages -Pulm and ID following FREDY on CKD stage 3 -sCr stable and suspect baseline -monitor Mild Acute Anemia -counts trending up -monitor Thrush -nystatin x 5 days Acute Metabolic Encephalopathy -remains confused -continue to treat underlying disorders -has some baseline dementia as well -seroquel and haldol added by CCM CAD/HTN/HPL -had some mild troponin elevation -stable EKG -continue asa Seizure d/o -continue home meds Dementia -baseline unclear JAMIE -BIPAP at HS DM-2 -BGT better this am -monitor for further needs DVT prophylaxis -lovenox 30 mg BID Code status -DNR-CCA Inpatient E&M: 29213 Subs Hosp L2
[2020-03-08] MEDS: Acetaminophen 325 MG Tablet 650 MG PO (19:43)
--- NOTE | 2020-03-08 20:20 | CPS ---
tried pt on bipap did not tolerate placed back on airvo decreased to 50 l and 76% [facility]
[2020-03-08 20:51] LABS: Bedside Glucose 163 mg/dL (70-110)
[2020-03-08] MEDS: NYSTATIN 500,000 UNIT/5 ML UDC 500000 UNIT PO (23:09)
--- NOTE | 2020-03-08 23:58 | CPS ---
called for low sats-pt laying on tubing
[2020-03-09] VITALS (38 sets, daily range): BP systolic 62–181; BP diastolic 40–100; PULSE 70–134; RESP 14–76; TEMP 36.6–37.4; O2SAT 74–97
[2020-03-09] MEDS: guaiFENesin 10 ML UDC (200MG/10ML) 20 ML PO ×3 (01:05→19:49)
[2020-03-09 05:13] LABS: Hematocrit 38.9 % (40-54); Hemoglobin 12.6 g/dL (13.0-16.5); Mean Corp Hgb Conc 32.4 g/dL (32-36); Mean Corpuscular Hgb 30.3 pg (27.0-32.0); Mean Corpuscular Volume 93.5 fL (80-94); Mean Platelet Vol. 10.8 fl (6.2-12.0); Platelet Count 297 K/mm3 (150-450); RBC Distribution Width CV 13.6 % (11.6-14.6); RBC Distribution Width SD 46.3 fl (35.1-43.9); Red Blood Count 4.16 M/mm3 (4.6-6.2); White Blood Count 11.4 K/mm3 (4.4-11.0)
[2020-03-09 05:20] LABS: ALB/GLOB Ratio 0.7 RATIO (0.9-2.4); AST(SGOT) 57 U/L (15-37); Alanine Aminotransfer ALT/SGPT 50 U/L (16-61); Albumin, Serum 2.6 g/dL (3.2-5.0); Alkaline Phosphatase 49 U/L (45-117); Anion Gap 5 (5-15); BUN 50 mg/dL (7-18); BUN/Creat Ratio 31.8 RATIO (10-20); Calcium,Total 8.2 mg/dL (8.5-10.1); Chloride 105 mmol/L (98-107); Creatinine, Serum 1.57 mg/dL (0.70-1.30); EST Glomerular Filtration Rate 45 mL/min (>60); Est Glom Filt Rate - Afr Amer 55 mL/min (>60); Estimated Creatinine Clearance 34.49 ml/min; Globulin 3.5 g/dL (2.2-4.2); Glucose 127 mg/dL (74-106); Potassium 4.6 mmol/L (3.5-5.1); Protein, Total 6.1 g/dL (6.4-8.2); Sodium Level 140 mmol/L (136-145)
--- NOTE | 2020-03-09 06:30 | NURSING ---
Pt got to [facility]. Pt had another bm. Pt asst back to bed. Pt po drop to 81% on airvo 45l. Encourage to take deep breaths pt still only up to 83%. resp paged
[2020-03-09] MEDS: Ipratropium/Albuterol Sulfate 3 ML AMPUL.NEB INHALATION ×3 (07:25→19:07)
[2020-03-09] MEDS: BENZOCAINE/MENTHOL 1 LOZENGE MUCOUS MEM (07:48)
[2020-03-09] MEDS: Aspirin 81 MG TAB.CHEW PO (07:48)
[2020-03-09] MEDS: NYSTATIN 500,000 UNIT/5 ML UDC 500000 UNIT PO ×3 (07:49→19:32)
[2020-03-09] MEDS: lamoTRIgine 100 MG Tablet PO ×2 (07:49→19:32)
[2020-03-09] MEDS: Enoxaparin 30 MG/0.3 ML Syringe SC ×2 (07:49→19:32)
[2020-03-09] MEDS: 0.9% Saline Lock 10 ML Syringe IV (07:49)
[2020-03-09] MEDS: dexAMETHasone 10 MG/ML Vial 6 MG IV (07:49)
[2020-03-09] MEDS: QUEtiapine 25 MG Tablet 50 MG PO ×2 (07:59→19:33)
[2020-03-09] MEDS: Insulin Lispro 100 UNIT/ML INSULN.PEN SC ×2 (07:59→19:53)
--- NOTE | 2020-03-09 08:49 | PN_ITS ---
Subjective: Patient did okay overnight. Patient has tolerated Airvo well with added Seroquel therapy. Patient does get agitated when having a bowel movement and reportedly has had 1 every 2-3 hours. No melena has been reported. Patient has not tolerated BiPAP therapy. Patient has been able to urinate spontaneously per nursing. General: Lethargic, Non-Cooperative, - - Opens eyes to voice, but rapidly falls back to sleep HEENT: Atraumatic, PERRLA, EOMI, Normocephalic, - - No epistaxis appreciated. Oral: No Gingival or Mucosal Lesions/ Ulcerations, Dry Mucosa Neck: Supple, No JVD, No Nodes, Trachea Midline Lungs: No rhonchi, No wheeze, No rales, Diminished, - - Fair effort. Symmetric expansion. Cardiovascular: Regular rate, Normal S1, Normal S2, No murmurs, No rub noted, No Gallop Abdomen: Bowel Sounds Present, Soft, Non Tender, Non-Distended Extremities: No clubbing, No cyanosis, No edema Skin: - - No change from previous Musculoskeletal: No Tenderness to Palpation of Joints or Extremities Lymphatic: No Cervical, Supraclavicular, or Inguinal Adenopathy Neurological: Cranial nerves II-XII grossly intact, Neuro grossly intact Psych/Mental Status: Flat Affect Vital Signs Temp Pulse Resp BP Pulse Ox 36.6 C 88 26 H 132/89 H 91 03/09/20 03:00 03/09/20 07:22 03/09/20 07:22 03/09/20 06:00 03/09/20 07:22 Oxygen Flow Rate (L/min) 60 Oxygen Delivery Method Airvo Weight: 90.5 kg Body Mass Index (BMI) 28.9 Intake and Output for Last 24 Hours 03/07/20 03/08/20 03/09/20 23:59 23:59 23:59 Intake Total 850 / 1090 1000 / 1000 120 / 120 Output Total 1075 / 1525 2950 / 2950 300 / 300 Balance -225 / -435 -1950 / -1950 -180 / -180 Labs (Last 48 Hours) 03/07/20 03/07/20 03/07/20 06:10 11:10 21:32 WBC RBC Hgb Hct MCV MCH MCHC RDW Std Deviation RDW Coeff of Becca Plt Count MPV Sodium Potassium Chloride Carbon Dioxide Anion Gap BUN Creatinine Estim Creat Clear Calc Est GFR (MDRD) Af Amer Est GFR (MDRD) Non-Af BUN/Creatinine Ratio Glucose Calcium Total Bilirubin AST ALT Alkaline Phosphatase Total Protein Albumin Globulin Albumin/Globulin Ratio POC Glucose 162 H 170 H 189 H 03/08/20 03/08/20 03/08/20 04:20 04:20 06:17 WBC 12.6 H RBC 4.20 L Hgb 12.4 L Hct 38.4 L MCV 91.4 MCH 29.5 MCHC 32.3 RDW Std Deviation 45.1 H RDW Coeff of Becca 13.4 Plt Count 291 MPV 10.8 Sodium 136 Potassium 4.8 Chloride 101 Carbon Dioxide 29.0 Anion Gap 6 BUN 52 H Creatinine 1.53 H Estim Creat Clear Calc 35.39 Est GFR (MDRD) Af Amer 56 L Est GFR (MDRD) Non-Af 46 L BUN/Creatinine Ratio 34.0 H Glucose 135 H Calcium 8.2 L Total Bilirubin 0.50 AST 82 H ALT 50 Alkaline Phosphatase 48 Total Protein 6.2 L Albumin 2.6 L Globulin 3.6 Albumin/Globulin Ratio 0.7 L POC Glucose 119 H 03/08/20 03/09/20 03/09/20 20:08 02:28 02:28 WBC 11.4 H RBC 4.16 L Hgb 12.6 L Hct 38.9 L MCV 93.5 MCH 30.3 MCHC 32.4 RDW Std Deviation 46.3 H RDW Coeff of Becca 13.6 Plt Count 297 MPV 10.8 Sodium 140 Potassium 4.6 Chloride 105 Carbon Dioxide 30.0 Anion Gap 5 BUN 50 H Creatinine 1.57 H Estim Creat Clear Calc 34.49 Est GFR (MDRD) Af Amer 55 L Est GFR (MDRD) Non-Af 45 L BUN/Creatinine Ratio 31.8 H Glucose 127 H Calcium 8.2 L Total Bilirubin 0.40 AST 57 H ALT 50 Alkaline Phosphatase 49 Total Protein 6.1 L Albumin 2.6 L Globulin 3.5 Albumin/Globulin Ratio 0.7 L POC Glucose 163 H Microbiology 03/04/20 05:45 Urine, Catheterized Urine Culture - Final Culture exhibits no growth. Medical Necessity - Tobacco Use Smoking Status: Never smoker - Patient listed is a tobacco user in the past however daughter Tala notes that he was never a smoker. Tobacco Use: Non-smoker Assessment/Plan All Active Problems Pneumonia due to COVID-19 virus (Acute) Respiratory failure (Acute) FREDY (acute kidney injury) (Acute) Acute respiratory failure with hypoxia (Acute) Cellulitis of right lower extremity (Acute) RECOMMENDATIONS: 1. Continue Airvo throughout the day. Wean FiO2 to maintain oxygen saturations at or above 90%. 2. Continue Decadron as ordered. Completed remdesivir. 3. Continue scheduled bronchodilator therapy while awake. 4. Encourage incentive spirometer use and mobilize patient as tolerated. 5. Continue Seroquel 6. Continue diuretic challenge after daily assessment IMPRESSIONS: 1. Acute on chronic combined respiratory failure secondary to COVID-19 pneumonia The patient has an apparent history of COPD and chronic oxygen dependency. He does appear to be in a state of exacerbation precipitated by his viral pneumonia. Plan to continue current supportive measures including the use of Airvo support. The patient will be continued on Lovenox, Decadron, but completed remdesivir. Continue scheduled bronchodilator therapy as well while awake. Continue BiPAP for now. Patient is a DNR Comfort Care arrest without intubation. Current dose of Seroquel will be added to help with Airvo synchrony. 2. Encephalopathy Deteriorated, likely secondary to delirium. Likely metabolic in etiology and related to CO2 retention. This has improved with noninvasive positive pressure ventilatory support. Patient moved closer to the nurses station 3. FREDY versus CKD Unclear baseline renal function. The patient did receive supplemental IV fluid hydration initially. We will plan to continue to monitor for now. No indication for renal replacement therapy. Patient appears to be stabilizing at approximately 1.5 of creatinine. Continue diuretic challenge given worsening respiratory failure 4. Coronary artery disease/COPD/unspecified seizure disorder/diabetes me llitus/hypertension/hyperlipidemia/advanced age Complicates care, management, recovery and prognosis. Continue home medications as indicated. Blood sugars are slightly elevated, but acceptable at this time. Inpatient E&M: [id number] [facility] Hosp L3
--- NOTE | 2020-03-09 10:19 | CASEMGMT ---
SW participated in ICU rounds. SW called daughter Tala after rounds to discuss discharge options for pt when pt is ready to leave the hospital. Message left, SW will speak w/daughter when she returns the call. TORSTEN Gill
[2020-03-09] MEDS: Furosemide 20 MG/2 ML VIAL IV (12:00)
--- NOTE | 2020-03-09 12:36 | PN_ITS ---
Patient Problems: Active and Suspected Problems Pneumonia due to COVID-19 virus (Acute) Respiratory failure (Acute) FREDY (acute kidney injury) (Acute) Acute respiratory failure with hypoxia (Acute) Diabetes mellitus, type II (Suspected) Former tobacco use (Suspected) Chronic obstructive pulmonary disease (COPD) (Suspected) Reason for Visit: COVID 19 Subjective: Breathing well on Airvo. Upset about not be attended to in an appropriate time. Vitals/I&O's: Vital Signs Temp Pulse Resp BP Pulse Ox 36.6 C 99 29 H 140/86 H 90 03/09/20 03:00 03/09/20 12:00 03/09/20 12:00 03/09/20 12:00 03/09/20 12:00 Oxygen Flow Rate (L/min) 60 Oxygen Delivery Method Airvo Weight: 90.5 kg Body Mass Index (BMI) 28.9 Intake and Output for Last 24 Hours 03/07/20 03/08/20 03/09/20 23:59 23:59 23:59 Intake Total 850 / 1090 1000 / 1000 240 / 240 Output Total 1075 / 1525 2950 / 2950 300 / 300 Balance -225 / -435 -1950 / -1950 -60 / -60 General: Alert, No apparent distress HEENT: Atraumatic, Normocephalic Oral: Moist Mucosa, No Gingival or Mucosal Lesions/ Ulcerations Neck: No Nodes, Thyroid Normal Size and Texture Lungs: Clear to auscultation, Normal air movement, No rhonchi, No wheeze, No rales Cardiovascular: Regular rate, Regular Rhythm, Normal S1, Normal S2, No murmurs Abdomen: Bowel Sounds Present, Soft, Non Tender, Non-Distended, No Hepato- splenomegaly Extremities: No edema, No Calf Tenderness Psych/Mental Status: Normal Affect, Appropriate Microbiology Past 72 Hours 03/04/20 11:05 Blood Culture (Wb) - Anticubital Right Blood Culture - Final No growth in 5 days. 03/04/20 11:12 Blood Culture (Wb) - Anticubital Left Blood Culture - Final No growth in 5 days. 03/04/20 05:45 Urine, Catheterized Urine Culture - Final Culture exhibits no growth. Laboratory Results 03/08/20 20:08: POC Glucose 163 H 03/09/20 02:28: WBC 11.4 H, RBC 4.16 L, Hgb 12.6 L, Hct 38.9 L, MCV 93.5, MCH 30.3, MCHC 32.4, RDW Std Deviation 46.3 H, RDW Coeff of Becca 13.6, Plt Count 297, MPV 10.8 03/09/20 02:28: Sodium 140, Potassium 4.6, Chloride 105, Carbon Dioxide 30.0, Anion Gap 5, BUN 50 H, Creatinine 1.57 H, Estim Creat Clear Calc 34.49, Est GFR (MDRD) Af Amer 55 L, Est GFR (MDRD) Non-Af 45 L, BUN/Creatinine Ratio 31.8 H, Glucose 127 H, Calcium 8.2 L, Total Bilirubin 0.40, AST 57 H, ALT 50, Alkaline Phosphatase 49, Total Protein 6.1 L, Albumin 2.6 L, Globulin 3.5, Albumin/Globulin Ratio 0.7 L Current Medications Acetaminophen (Acetaminophen 325 Mg Tablet) 650 mg PO Q6H PRN PRN PRN Reason: Pain Score 1-10/Temp > 100.7 F Last Admin: 03/08/20 19:43 Dose: 650 mg Documented by: Al Hydroxide/Mg Hydroxide (Mag Hydrox/Al Hydrox/Simeth 30 Ml Udc) 30 ml PO Q6H PRN PRN PRN Reason: Gastric Burning Albuterol Sulfate (Albuterol Sulfate 8 Gm Inhaler (60 Puffs)) 4 - 8 puff INHALATION Q4H PRN PRN PRN Reason: Dyspnea, wheezing Albuterol/Ipratropium (Ipratropium/Albuterol Sulfate 3 Ml Ampul.Neb) 3 ml INHALATION Q6HWA.RT [facility] Last Admin: 03/09/20 07:25 Dose: 3 ml Documented by: Aspirin (Aspirin 81 Mg Tab.Chew) 81 mg PO DAILY [facility] Last Admin: 03/09/20 07:48 Dose: 81 mg Documented by: Dexamethasone Sodium Phosphate (Dexamethasone 10 Mg/Ml Vial) 6 mg IV DAILY [facility] Stop: 03/14/20 10:01 Last Admin: 03/09/20 07:49 Dose: 6 mg Documented by: Enoxaparin Sodium (Enoxaparin 30 Mg/0.3 Ml Syringe) 30 mg SC BID [facility] Last Admin: 03/09/20 07:49 Dose: 30 mg Documented by: Guaifenesin (Guaifenesin 10 Ml Udc (200mg/10ml)) 20 ml PO Q4H PRN PRN PRN Reason: COUGH Last Admin: 03/09/20 07:47 Dose: 20 ml Documented by: Hydralazine HCl (Hydralazine 20 Mg/Ml Vial) 10 mg IV Q4H PRN PRN PRN Reason: SBP > 160 Insulin Human Lispro (Insulin Lispro 100 Unit/Ml Insuln.Pen) 0 unit SC [facility]; Protocol Last Admin: 03/09/20 07:59 Dose: 1 u Documented by: Lamotrigine (Lamotrigine 100 Mg Tablet) 100 mg PO BID [facility] Last Admin: 03/09/20 07:49 Dose: 100 mg Documented by: Magnesium Hydroxide (Magnesium Hydroxide 30 Ml Udc) 30 ml PO DAILY PRN PRN PRN Reason: Constipation Nystatin (Nystatin 500,000 Unit/5 Ml Udc) 500,000 unit PO 4X/DAY [facility] Stop: 03/13/20 22:01 Last Admin: 03/09/20 07:49 Dose: 500,000 unit Documented by: Ondansetron HCl (Ondansetron 4 Mg/2 Ml Vial) 4 mg IV Q8H PRN PRN PRN Reason: NAUSEA/VOMITING Prochlorperazine Edisylate (Prochlorperazine 10 Mg/2 Ml Vial) 5 mg IV Q4H PRN PRN PRN Reason: Breakthrough Nausea/Vomiting Psyllium Hydrophilic Mucilloid (Psyllium 1 Packet) 1 packet PO DAILY PRN PRN PRN Reason: Constipation Quetiapine Fumarate (Quetiapine 25 Mg Tablet) 50 mg PO BID [facility] Last Admin: 03/09/20 07:59 Dose: 50 mg Documented by: Senna/Docusate Sodium (Senna/Docusate Sodium 1 Tablet) 2 tablet PO BID PRN PRN PRN Reason: Constipation Sodium Chloride (0.9% Saline Lock 10 Ml Syringe) 10 - 40 ml IV UD PRN PRN Reason: SALINE FLUSH Last Admin: 03/09/20 07:49 Dose: 10 ml Documented by: Sodium Chloride (Sodium Chloride 0.65% 1 [place].Btl) 2 spray NASAL TID PRN PRN PRN Reason: NASAL DRYNESS Throat Lozenges (Benzocaine/Menthol 1 Lozenge) 1 lozenge MUCOUS MEM Q2H PRN PRN PRN Reason: SORE THROAT Last Admin: 03/09/20 07:48 Dose: 1 lozenge Documented by: STROKE Vital Signs/Narrative: Vital Signs Pulse Resp BP Pulse Ox 03/09/20 12:00 99 29 H 140/86 H 90 03/09/20 11:00 103 H 26 H 120/93 H 88 03/09/20 10:00 88 30 H 130/66 H 90 03/09/20 09:00 105 H 37 H 118/83 H 89 Medical Necessity - Tobacco Use Smoking Status: Never smoker - Patient listed is a tobacco user in the past however daughter Tala notes that he was never a smoker. Tobacco Use: Non-smoker Assessment/Plan All Active Problems Pneumonia due to COVID-19 virus (Acute) Respiratory failure (Acute) FREDY (acute kidney injury) (Acute) Acute respiratory failure with hypoxia (Acute) Cellulitis of right lower extremity (Acute) 1. acute on chronic hypoxic respiratory failure * 2/2 COVID and COPD * tolerating airvo * wean oxygen as tolerated. 2. Acute COVID 19 pneumonia * on dexa and rem-d 3. CKD 3 * Cr stable, doubt FREDY * monitor 4. Szr d/o * lamotrigine 5. AECOPD * on steroids 6. VTE prophylaxis: LMWH Patient was playing extensively but not having his call light addressed. Stated that he was left to deal with whatever knee that he needed addressed for 3 to 4 hours. He was accusing me that the staff was purposely ignoring him outside the room. I brought this up to the charge nurse who stated the patient was having some difficulty with using the call light. Patient also had stated that someone took the actual call light out of his room and did not replace it but there was one present at bedside. And the call light was functional as I was able to view the TV. Inpatient E&M: 24333 Subs Hosp L2
[2020-03-09] MEDS: Haloperidol Lactate 5 MG/ML Vial IV (13:20)
--- NOTE | 2020-03-09 14:00 | PCM.PN.ID ---
Patient Problems: Active and Suspected Problems Pneumonia due to COVID-19 virus (Acute) Respiratory failure (Acute) FREDY (acute kidney injury) (Acute) Acute respiratory failure with hypoxia (Acute) Diabetes mellitus, type II (Suspected) Former tobacco use (Suspected) Chronic obstructive pulmonary disease (COPD) (Suspected) Subjective: Feeling about the same, no fever - Physical Exam Vitals/I&O's: Vital Signs Temp Pulse Resp BP Pulse Ox 97.8 F 99 29 H 140/86 H 90 03/09/20 12:00 03/09/20 12:00 03/09/20 12:00 03/09/20 12:00 03/09/20 12:00 Oxygen Flow Rate (L/min) 60 Oxygen Delivery Method Airvo Weight: 90.5 kg Body Mass Index (BMI) 28.9 Intake and Output for Last 24 Hours 03/07/20 03/08/20 03/09/20 23:59 23:59 23:59 Intake Total 850 / 1090 1000 / 1000 240 / 240 Output Total 1075 / 1525 2950 / 2950 300 / 300 Balance -225 / -435 -1950 / -1950 -60 / -60 General: Alert, Cooperative Lungs: Diminished Cardiovascular: Regular rate, Regular Rhythm Abdomen: Soft, Non Tender, Non-Distended Skin: No rashes Microbiology Past 72 Hours 03/04/20 11:05 Blood Culture (Wb) - Anticubital Right Blood Culture - Final No growth in 5 days. 03/04/20 11:12 Blood Culture (Wb) - Anticubital Left Blood Culture - Final No growth in 5 days. 03/04/20 05:45 Urine, Catheterized Urine Culture - Final Culture exhibits no growth. Laboratory Results 03/08/20 20:08: POC Glucose 163 H 03/09/20 02:28: WBC 11.4 H, RBC 4.16 L, Hgb 12.6 L, Hct 38.9 L, MCV 93.5, MCH 30.3, MCHC 32.4, RDW Std Deviation 46.3 H, RDW Coeff of Becca 13.6, Plt Count 297, MPV 10.8 03/09/20 02:28: Sodium 140, Potassium 4.6, Chloride 105, Carbon Dioxide 30.0, Anion Gap 5, BUN 50 H, Creatinine 1.57 H, Estim Creat Clear Calc 34.49, Est GFR (MDRD) Af Amer 55 L, Est GFR (MDRD) Non-Af 45 L, BUN/Creatinine Ratio 31.8 H, Glucose 127 H, Calcium 8.2 L, Total Bilirubin 0.40, AST 57 H, ALT 50, Alkaline Phosphatase 49, Total Protein 6.1 L, Albumin 2.6 L, Globulin 3.5, Albumin/Globulin Ratio 0.7 L Current Medications Acetaminophen (Acetaminophen 325 Mg Tablet) 650 mg PO Q6H PRN PRN PRN Reason: Pain Score 1-10/Temp > 100.7 F Last Admin: 03/08/20 19:43 Dose: 650 mg Documented by: Al Hydroxide/Mg Hydroxide (Mag Hydrox/Al Hydrox/Simeth 30 Ml Udc) 30 ml PO Q6H PRN PRN PRN Reason: Gastric Burning Albuterol Sulfate (Albuterol Sulfate 8 Gm Inhaler (60 Puffs)) 4 - 8 puff INHALATION Q4H PRN PRN PRN Reason: Dyspnea, wheezing Albuterol/Ipratropium (Ipratropium/Albuterol Sulfate 3 Ml Ampul.Neb) 3 ml INHALATION Q6HWA.RT [facility] Last Admin: 03/09/20 07:25 Dose: 3 ml Documented by: Aspirin (Aspirin 81 Mg Tab.Chew) 81 mg PO DAILY [facility] Last Admin: 03/09/20 07:48 Dose: 81 mg Documented by: Dexamethasone Sodium Phosphate (Dexamethasone 10 Mg/Ml Vial) 6 mg IV DAILY [facility] Stop: 03/14/20 10:01 Last Admin: 03/09/20 07:49 Dose: 6 mg Documented by: Enoxaparin Sodium (Enoxaparin 30 Mg/0.3 Ml Syringe) 30 mg SC BID [facility] Last Admin: 03/09/20 07:49 Dose: 30 mg Documented by: Guaifenesin (Guaifenesin 10 Ml Udc (200mg/10ml)) 20 ml PO Q4H PRN PRN PRN Reason: COUGH Last Admin: 03/09/20 07:47 Dose: 20 ml Documented by: Hydralazine HCl (Hydralazine 20 Mg/Ml Vial) 10 mg IV Q4H PRN PRN PRN Reason: SBP > 160 Insulin Human Lispro (Insulin Lispro 100 Unit/Ml Insuln.Pen) 0 unit [facility]; Protocol Last Admin: 03/09/20 12:00 Dose: Not Given Documented by: Lamotrigine (Lamotrigine 100 Mg Tablet) 100 mg PO BID [facility] Last Admin: 03/09/20 07:49 Dose: 100 mg Documented by: Magnesium Hydroxide (Magnesium Hydroxide 30 Ml Udc) 30 ml PO DAILY PRN PRN PRN Reason: Constipation Nystatin (Nystatin 500,000 Unit/5 Ml Udc) 500,000 unit PO 4X/DAY [facility] Stop: 03/13/20 22:01 Last Admin: 03/09/20 07:49 Dose: 500,000 unit Documented by: Ondansetron HCl (Ondansetron 4 Mg/2 Ml Vial) 4 mg IV Q8H PRN PRN PRN Reason: NAUSEA/VOMITING Prochlorperazine Edisylate (Prochlorperazine 10 Mg/2 Ml Vial) 5 mg IV Q4H PRN PRN PRN Reason: Breakthrough Nausea/Vomiting Psyllium Hydrophilic Mucilloid (Psyllium 1 Packet) 1 packet PO DAILY PRN PRN PRN Reason: Constipation Quetiapine Fumarate (Quetiapine 25 Mg Tablet) 50 mg PO BID [facility] Last Admin: 03/09/20 07:59 Dose: 50 mg Documented by: Senna/Docusate Sodium (Senna/Docusate Sodium 1 Tablet) 2 tablet PO BID PRN PRN PRN Reason: Constipation Sodium Chloride (0.9% Saline Lock 10 Ml Syringe) 10 - 40 ml IV UD PRN PRN Reason: SALINE FLUSH Last Admin: 03/09/20 07:49 Dose: 10 ml Documented by: Sodium Chloride (Sodium Chloride 0.65% 1 [place].Btl) 2 spray NASAL TID PRN PRN PRN Reason: NASAL DRYNESS Throat Lozenges (Benzocaine/Menthol 1 Lozenge) 1 lozenge MUCOUS MEM Q2H PRN PRN PRN Reason: SORE THROAT Last Admin: 03/09/20 07:48 Dose: 1 lozenge Documented by: Medical Necessity - Tobacco Use Smoking Status: Never smoker - Patient listed is a tobacco user in the past however daughter Tala notes that he was never a smoker. Tobacco Use: Non-smoker Route of nutrition/ use of supplements: [] Nutritional Intake: [] IV Site: [] Amezquita Catheter: [] - Assessment/Plan Antibiotics: [] Assessment/Plan: [] Active and Suspected Problems Pneumonia due to COVID-19 virus (Acute) Respiratory failure (Acute) FREDY (acute kidney injury) (Acute) Acute respiratory failure with hypoxia (Acute) Diabetes mellitus, type II (Suspected) Former tobacco use (Suspected) Chronic obstructive pulmonary disease (COPD) (Suspected) covid with hypoxia - fever improved. Sx started around 02/28. D-dimer 2.7, CT neg for PE. On dex, remdesivir, lovenox 30mg bid. FREDY improved. Plan on 10 days total of dex, 20 days of quarantine ending 03/20/20. Would do low dose xarelto or eliquis for 2 weeks at discharge. Will follow
[2020-03-09] MEDS: Morphine 2 MG/ML Syringe IV (15:42)
--- NOTE | 2020-03-09 16:30 | NURSING ---
Patient wants the end of life care. Information related to the physician. New order for one time Morphine. Rodent Control Worker communicated with the patient via phone. 5 family members present at bedside per hospital end of life policy in place. Hospitalist Trina Lai paged with patient status update, request for code status change, new comfort med orders, and meeting with 5 family members. See new physician orders.
--- NOTE | 2020-03-09 17:42 | CHAPLAIN ---
Type of Pastoral Visit _x__ Initial Visit ___ Follow-up Visit ___ On-call Visit ___ General Patient Visit ___ Spiritual Assessment ___ Family Conference ___ Bereavement ___ Rapid Response ___ Code Blue _x__ Other (describe below) Pastoral Care Referral From _x__ Patient _x__ Family _x__ Nurse ___ Physician ___ Stone Mason ___ Call Center Operations Manager ___ Other (describe below) Sacrament/Intervention ___ Active listening ___ Anointing ___ Advent ___ Bereavement ___ Communion ___ Miranda exploration ___ ___ Life review _x__ Prayer ___ Reconciliation ___ Sacrament of Sick _x__ Supportive presence ___ Wedding ___ Other (describe below) Pastoral Comments family had arrived and introduced to barmaid; pt has requested that no more treatment be done and that he is tired; patient and family request support for prayer; called into room phone while family members present to give prayer and assurances of support; pt could respond to the phone call; pt is member of [employer]
[2020-03-09] MEDS: morphine (oral solution) 10MG/0.5ML Syringe 10 MG SL/PO ×2 (17:46→19:32)
[2020-03-09] MEDS: Acetaminophen 325 MG Tablet 650 MG PO (19:48)
[2020-03-09 20:26] LABS: Bedside Glucose 187 mg/dL (70-110)
--- NOTE | 2020-03-09 21:12 | NURSING ---
Pt at the end of the bed. Pt pulled up and repostion in bed. Denies any other need at this time
--- NOTE | 2020-03-09 22:08 | NURSING ---
Tala the poa daughter called and informed pt about vitals. Asked daughter if she would want pt to be put on pressures for bp or any other life saving measures . Pt said my dad didnt want anything else done. Offered if she or any family member would like to come in they are welcome. Daughter asked when do i think it will happen. At this time the nurse could not answer this question.
[2020-03-10] VITALS (25 sets, daily range): BP systolic 70–146; BP diastolic 41–81; PULSE 89–118; RESP 22–94; TEMP 36–37.3; O2SAT 73–94
[2020-03-10] MEDS: morphine (oral solution) 10MG/0.5ML Syringe 10 MG SL/PO ×5 (03:43→22:22)
--- NOTE | 2020-03-10 06:16 | PCM.PN.INT ---
Subjective: The patient was seen and examined at the bedside this morning. Events from the last 24 hours have been reviewed. The patient is currently afebrile, hemodynamically stable and maintaining appropriate oxygen saturations on Airvo heated high flow with an FiO2 requirement of 91% and flow rate of 60 L/min. The patient has refused noninvasive positive pressure ventilatory support and is currently DNR CCA without intubation. Objective: The patient's most recent lab work, culture data and imaging studies have all been personally reviewed. Coronavirus PCR was positive on March 04. Respiratory viral panel was negative. Strep and urine Legionella antigens were negative. Blood cultures have shown no growth to date. General: Alert, - - Moderately distressed on heated high flow oxygen. HEENT: Atraumatic, Normocephalic Oral: Dry Mucosa Neck: Supple, No Nodes, Trachea Midline Lungs: Diminished, Tachypneic Cardiovascular: Normal S1, Normal S2, No murmurs, Tachycardic Abdomen: Bowel Sounds Present, Soft, Non Tender Extremities: No clubbing, No cyanosis, No edema Skin: No breakdown Musculoskeletal: No Tenderness to Palpation of Joints or Extremities Lymphatic: No Cervical, Supraclavicular, or Inguinal Adenopathy Neurological: Neuro grossly intact Psych/Mental Status: Flat Affect Vital Signs Temp Pulse Resp BP Pulse Ox 99.1 F 104 H 33 H 146/45 H 88 03/10/20 04:00 03/10/20 06:00 03/10/20 06:00 03/10/20 06:00 03/10/20 06:00 Oxygen Flow Rate (L/min) 60 Oxygen Delivery Method Airvo Weight: 196 lb 3.382 oz Body Mass Index (BMI) 28.9 Intake and Output for Last 24 Hours 03/08/20 03/09/20 03/10/20 23:59 23:59 23:59 Intake Total 1000 / 1000 540 / 540 Output Total 2950 / 2950 300 / 300 0 / 0 Balance -1950 / -1950 240 / 240 0 / 0 Labs (Last 48 Hours) 03/08/20 03/08/20 03/09/20 06:17 20:08 02:28 WBC 11.4 H RBC 4.16 L Hgb 12.6 L Hct 38.9 L MCV 93.5 MCH 30.3 MCHC 32.4 RDW Std Deviation 46.3 H RDW Coeff of Becca 13.6 Plt Count 297 MPV 10.8 Sodium Potassium Chloride Carbon Dioxide Anion Gap BUN Creatinine Estim Creat Clear Calc Est GFR (MDRD) Af Amer Est GFR (MDRD) Non-Af BUN/Creatinine Ratio Glucose Calcium Total Bilirubin AST ALT Alkaline Phosphatase Total Protein Albumin Globulin Albumin/Globulin Ratio POC Glucose 119 H 163 H 03/09/20 03/09/20 02:28 19:52 WBC RBC Hgb Hct MCV MCH MCHC RDW Std Deviation RDW Coeff of Becca Plt Count MPV Sodium 140 Potassium 4.6 Chloride 105 Carbon Dioxide 30.0 Anion Gap 5 BUN 50 H Creatinine 1.57 H Estim Creat Clear Calc 34.49 Est GFR (MDRD) Af Amer 55 L Est GFR (MDRD) Non-Af 45 L BUN/Creatinine Ratio 31.8 H Glucose 127 H Calcium 8.2 L Total Bilirubin 0.40 AST 57 H ALT 50 Alkaline Phosphatase 49 Total Protein 6.1 L Albumin 2.6 L Globulin 3.5 Albumin/Globulin Ratio 0.7 L POC Glucose 187 H Microbiology 03/04/20 11:05 Blood Culture (Wb) - Anticubital Right Blood Culture - Final No growth in 5 days. 03/04/20 11:12 Blood Culture (Wb) - Anticubital Left Blood Culture - Final No growth in 5 days. Clinical Impression(s) from Imaging Studies Chest X-Ray 03/04/20 11:25 IMPRESSION: Small left pleural effusion with bibasilar infiltrates worse on the left side. Electronically Signed: Smith Rosenbaum, at 12:07 EST , Service support , Chest CTA 03/04/20 17:26 IMPRESSION: 1. No pulmonary embolism 2. Bilateral viral pneumonia. 3. Probably bilateral lower lobe bacterial pneumonia and/or subsegmental collapse, possibly nonacute.. 4. Abnormal attenuation in the lower lung parenchyma. Recommend reevaluation after resolution of acute infectious disease. 5. Severe coronary artery disease. Electronically Signed: Lucrecia Gardner, at 18:29 EST Tel , Service support , Medical Necessity - Tobacco Use Smoking Status: Never smoker - Patient listed is a tobacco user in the past however daughter Tala notes that he was never a smoker. Tobacco Use: Non-smoker Assessment/Plan All Active Problems Pneumonia due to COVID-19 virus (Acute) Respiratory failure (Acute) FREDY (acute kidney injury) (Acute) Acute respiratory failure with hypoxia (Acute) Cellulitis of right lower extremity (Acute) RECOMMENDATIONS: 1. Continue Airvo heated high flow in an attempt to maintain saturations at or above 90%. 2. Continue Decadron. 3. Continue scheduled bronchodilator therapy while awake. 4. Continued goals of care discussion with patient and family. IMPRESSIONS: 1. Acute on chronic combined respiratory failure secondary to COVID-19 pneumonia The patient has an apparent history of COPD and chronic oxygen dependency. He does appear to be in a state of exacerbation precipitated by his viral pneumonia. Plan to continue current supportive measures including heated high flow supplemental oxygen. The patient will be continued on Lovenox and Decadron as ordered. Continue scheduled bronchodilator therapy as well while awake. 2. Encephalopathy Likely metabolic in etiology and related to CO2 retention. This has improved with noninvasive positive pressure ventilatory support. The patient, however, is now refusing to utilize BiPAP therapy. 3. FREDY versus CKD Unclear baseline renal function. The patient did receive supplemental IV fluid hydration. We will plan to continue to monitor for now. No indication for renal replacement therapy. 4. Coronary artery disease/COPD/unspecified seizure disorder/diabetes mellitus/hypertension/hyperlipidemia/advanced age Complicates care, management, recovery and prognosis. Continue home medications as indicated. This note was generated with myhub dictation software. It may contain incorrect words, spelling, and punctuation that were not noted in checking the note before signing. Inpatient E&M: 75967 Subs Hosp L2
[2020-03-10] MEDS: BENZOCAINE/MENTHOL 1 LOZENGE MUCOUS MEM (07:54)
[2020-03-10] MEDS: Aspirin 81 MG TAB.CHEW PO (07:57)
[2020-03-10] MEDS: NYSTATIN 500,000 UNIT/5 ML UDC 500000 UNIT PO (07:58)
[2020-03-10] MEDS: dexAMETHasone 10 MG/ML Vial 6 MG IV (07:58)
[2020-03-10] MEDS: lamoTRIgine 100 MG Tablet PO (07:58)
[2020-03-10] MEDS: QUEtiapine 25 MG Tablet 50 MG PO ×2 (07:58→22:59)
[2020-03-10] MEDS: Enoxaparin 30 MG/0.3 ML Syringe SC (07:58)
[2020-03-10] MEDS: 0.9% Saline Lock 10 ML Syringe IV ×2 (07:59→20:41)
[2020-03-10] MEDS: 0.9% Normal Saline 1,000 ML 999 ML IV (09:30)
--- NOTE | 2020-03-10 10:27 | CASEMGMT ---
SW called sade Edgar to offer support. She is here and wanted to come up to see pt. SW spoke w/RN, pt is not allowed to have visitors as he is getting full care. Physician also stating pt was doing better this morning. As per RN, family was here yesterday and decided against comfort care. SW spoke w/daughter, let her know pt is doing better and cannot have visitors. SW explained will be here for discharge planning if needed and for support. SW then spoke further w/RN and physician, pt is not doing better but can't have visitors due to family deciding that they would like pt to continue treatment. GIA called sade Edgar back to clarify. SW asked if she is POA, she states she is and papers are on the chart(they are not). There are 8 children, she does talk with the other children in regard to decisions. She was not here yesterday when the other children were here. She states she thought pt was on comfort care. GIA reviewed pt's code status and explained family here yesterday wanted to continue treatment. Tala did not understand that this was the decision made yesterday. Physician then got on the phone to speak w/Tala. Tala plans to speak w/pt's other children for clarification and will call physician back to let him know what family decides, if they would like to continue treatment or have comfort care for pt. GIA remains available for support to family as needed. TORSTEN Gill
--- NOTE | 2020-03-10 11:33 | PN_ITS ---
Patient Problems: Active and Suspected Problems Pneumonia due to COVID-19 virus (Acute) Respiratory failure (Acute) FREDY (acute kidney injury) (Acute) Acute respiratory failure with hypoxia (Acute) Diabetes mellitus, type II (Suspected) Former tobacco use (Suspected) Chronic obstructive pulmonary disease (COPD) (Suspected) Reason for Visit: COVID 19 Subjective: Worse today. Did receive quietapine and morphine. Low BP and received NS. Vitals/I&O's: Vital Signs Temp Pulse Resp BP Pulse Ox 36.8 C 93 26 H 82/52 L 94 03/10/20 07:00 03/10/20 09:50 03/10/20 09:50 03/10/20 09:50 03/10/20 09:50 Oxygen Flow Rate (L/min) 60 Oxygen Delivery Method Airvo Weight: 89 kg Body Mass Index (BMI) 28.9 Intake and Output for Last 24 Hours 03/08/20 03/09/20 03/10/20 23:59 23:59 23:59 Intake Total 1000 / 1000 540 / 540 Output Total 2950 / 2950 300 / 300 0 / 0 Balance -1950 / -1950 240 / 240 0 / 0 General: No apparent distress, Confused, - - responds briefly to noxious stimuli HEENT: Atraumatic, Normocephalic Oral: Moist Mucosa, No Gingival or Mucosal Lesions/ Ulcerations Neck: No Nodes, Thyroid Normal Size and Texture Lungs: Diminished, - - coarse BS bilaterally Cardiovascular: Regular rate, No murmurs Abdomen: Bowel Sounds Present, Soft, Non Tender, Non-Distended, No Hepato- splenomegaly Extremities: No edema, No Calf Tenderness Skin: No rashes, No breakdown Microbiology Past 72 Hours 03/04/20 11:05 Blood Culture (Wb) - Anticubital Right Blood Culture - Final No growth in 5 days. 03/04/20 11:12 Blood Culture (Wb) - Anticubital Left Blood Culture - Final No growth in 5 days. 03/04/20 05:45 Urine, Catheterized Urine Culture - Final Culture exhibits no growth. Laboratory Results 03/09/20 19:52: POC Glucose 187 H Current Medications Acetaminophen (Acetaminophen 325 Mg Tablet) 650 mg PO Q6H PRN PRN PRN Reason: Pain Score 1-10/Temp > 100.7 F Last Admin: 03/09/20 19:48 Dose: 650 mg Documented by: Al Hydroxide/Mg Hydroxide (Mag Hydrox/Al Hydrox/Simeth 30 Ml Udc) 30 ml PO Q6H PRN PRN PRN Reason: Gastric Burning Albuterol Sulfate (Albuterol Sulfate 8 Gm Inhaler (60 Puffs)) 4 - 8 puff INHALATION Q4H PRN PRN PRN Reason: Dyspnea, wheezing Guaifenesin (Guaifenesin 10 Ml Udc (200mg/10ml)) 20 ml PO Q4H PRN PRN PRN Reason: COUGH Last Admin: 03/09/20 19:49 Dose: 20 ml Documented by: Lamotrigine (Lamotrigine 100 Mg Tablet) 100 mg PO BID [facility] Last Admin: 03/10/20 07:58 Dose: 100 mg Documented by: Magnesium Hydroxide (Magnesium Hydroxide 30 Ml Udc) 30 ml PO DAILY PRN PRN PRN Reason: Constipation Morphine Sulfate (Morphine (Oral Solution) 10mg/0.5ml Syringe) 10 mg SL/PO Q1H PRN PRN PRN Reason: Pain Score 6-10/10, shortness of breath Last Admin: 03/10/20 07:57 Dose: 10 mg Documented by: Nystatin (Nystatin 500,000 Unit/5 Ml Udc) 500,000 unit PO 4X/DAY [facility] Stop: 03/13/20 22:01 Last Admin: 03/10/20 07:58 Dose: 500,000 unit Documented by: Ondansetron HCl (Ondansetron 4 Mg/2 Ml Vial) 4 mg IV Q8H PRN PRN PRN Reason: NAUSEA/VOMITING Prochlorperazine Edisylate (Prochlorperazine 10 Mg/2 Ml Vial) 5 mg IV Q4H PRN PRN PRN Reason: Breakthrough Nausea/Vomiting Psyllium Hydrophilic Mucilloid (Psyllium 1 Packet) 1 packet PO DAILY PRN PRN PRN Reason: Constipation Quetiapine Fumarate (Quetiapine 25 Mg Tablet) 50 mg PO BID PRN PRN Reason: AGITATION Senna/Docusate Sodium (Senna/Docusate Sodium 1 Tablet) 2 tablet PO BID PRN PRN PRN Reason: Constipation Sodium Chloride (0.9% Saline Lock 10 Ml Syringe) 10 - 40 ml IV UD PRN PRN Reason: SALINE FLUSH Last Admin: 03/10/20 07:59 Dose: 10 ml Documented by: Sodium Chloride (Sodium Chloride 0.65% 1 [place].Btl) 2 spray NASAL TID PRN PRN PRN Reason: NASAL DRYNESS Throat Lozenges (Benzocaine/Menthol 1 Lozenge) 1 lozenge MUCOUS MEM Q2H PRN PRN PRN Reason: SORE THROAT Last Admin: 03/09/20 07:48 Dose: 1 lozenge Documented by: STROKE Vital Signs/Narrative: Vital Signs Pulse Resp BP Pulse Ox 03/10/20 09:50 93 26 H 82/52 L 94 03/10/20 09:36 93 29 H 82/50 L 94 03/10/20 09:21 98 33 H 70/41 L 92 Medical Necessity - Tobacco Use Smoking Status: Never smoker - Patient listed is a tobacco user in the past however daughter Tala notes that he was never a smoker. Tobacco Use: Non-smoker Assessment/Plan All Active Problems Pneumonia due to COVID-19 virus (Acute) Respiratory failure (Acute) FREDY (acute kidney injury) (Acute) Acute respiratory failure with hypoxia (Acute) Cellulitis of right lower extremity (Acute) 1. acute on chronic hypoxic respiratory failure * 2/2 COVID and COPD * tolerating airvo * wean oxygen as tolerated. 2. Acute COVID 19 pneumonia * on dexa and rem-d 3. CKD 3 * Cr stable, doubt FREDY * monitor 4. Szr d/o * lamotrigine 5. AECOPD * on steroids 6. VTE prophylaxis: LMWH Advance care planning: Spent 35 minutes discussing with the patient's daughter, Tala, who is the POA. Plan situation has gotten worse and the options of continued aggressive medical care which would require central IV access and pressor support versus comfort measures with hospice. She was favoring hospice but want discussed with her family. She later discussed with family and call me back. So the plan is to proceed with comfort measures. I explained to her that we will de-escalate much of his medications, focus on comfort and symptom support, consult hospice and change the patient's CODE STATUS to DNR comfort care. She was in agreement to that. Inpatient E&M: 04861 Subs Hosp L2 Procedures: 81624 Advncd Care Plan 30 Min
[2020-03-11] VITALS (7 sets, daily range): BP systolic 129; BP diastolic 66; PULSE 60–120; RESP 28–34; TEMP 38.1; O2SAT 65–88
[2020-03-11] MEDS: morphine (oral solution) 10MG/0.5ML Syringe 10 MG SL/PO ×6 (01:19→10:10)
[2020-03-11] MEDS: 0.9% Saline Lock 10 ML Syringe IV (01:24)
[2020-03-11 08:05] LABS: pH 7.19 (7.35-7.45)
--- NOTE | 2020-03-11 08:56 | PCM.PN.HOSP ---
Patient Problems: Active and Suspected Problems Pneumonia due to COVID-19 virus (Acute) Respiratory failure (Acute) FREDY (acute kidney injury) (Acute) Acute respiratory failure with hypoxia (Acute) Diabetes mellitus, type II (Suspected) Former tobacco use (Suspected) Chronic obstructive pulmonary disease (COPD) (Suspected) Reason for Visit: Follow-up for COVID-19 pneumonia with acute hypoxic respiratory failure.. Patient is DNR CC Objective: Low-grade fever, T-max 100.5 Fahrenheit. When I saw the patient, patient was having deep breathing, agonal breathing. Heart rate fluctuates, respiratory rate 28-34/min. On high flow oxygen. Patient is unconscious unresponsive. Physical exam General: Unconscious, unresponsive. HEENT: Atraumatic, pupils sluggish reactive. No corneal reflex. Oral: No Gingival or Mucosal Lesions/ Ulcerations Neck: Supple, No JVD, Negative Carotid Bruits Lungs: Air entry diminished in bilateral lungs. Agonal breathing. No crepitation/rhonchi Cardiovascular: Heart rate fluctuates. Heart sounds muffled. No murmurs Abdomen: Bowel Sounds Present, Soft, Non Tender, Non-Distended : No renal angle tenderness. No suprapubic tenderness. Extremities: No edema, Capillary Refill Less than 3 Seconds Skin: No rashes, No breakdown Musculoskeletal: No Tenderness to Palpation of Joints or Extremities Neurological: DTR not elicitable. Unconscious. Psych/Mental Status: Unresponsive Vitals/I&O's: Vital Signs Temp Pulse Resp BP Pulse Ox 100.5 F H 120 H 34 H 129/66 H 74 03/11/20 08:03 03/11/20 08:03 03/11/20 08:03 03/11/20 08:03 03/11/20 08:03 Oxygen Flow Rate (L/min) 60 Oxygen Delivery Method Airvo Weight: 197 lb 8.547 oz Body Mass Index (BMI) 28.9 Intake and Output for Last 24 Hours 03/09/20 03/10/20 03/11/20 23:59 23:59 23:59 Intake Total 540 / 540 1000 / 1000 Output Total 300 / 300 0 / 0 Balance 240 / 240 1000 / 1000 Microbiology Past 72 Hours 03/04/20 11:05 Blood Culture (Wb) - Anticubital Right Blood Culture - Final No growth in 5 days. 03/04/20 11:12 Blood Culture (Wb) - Anticubital Left Blood Culture - Final No growth in 5 days. Laboratory Results 03/04/20 17:14: pH 7.19 L*, ABG pCO2 85.0 H* Current Medications Acetaminophen (Acetaminophen 325 Mg Tablet) 650 mg PO Q6H PRN PRN PRN Reason: Pain Score 1-10/Temp > 100.7 F Last Admin: 03/09/20 19:48 Dose: 650 mg Documented by: Al Hydroxide/Mg Hydroxide (Mag Hydrox/Al Hydrox/Simeth 30 Ml Udc) 30 ml PO Q6H PRN PRN PRN Reason: Gastric Burning Albuterol Sulfate (Albuterol Sulfate 8 Gm Inhaler (60 Puffs)) 4 - 8 puff INHALATION Q4H PRN PRN PRN Reason: Dyspnea, wheezing Guaifenesin (Guaifenesin 10 Ml Udc (200mg/10ml)) 20 ml PO Q4H PRN PRN PRN Reason: COUGH Last Admin: 03/09/20 19:49 Dose: 20 ml Documented by: Lamotrigine (Lamotrigine 100 Mg Tablet) 100 mg PO BID [facility] Last Admin: 03/11/20 08:06 Dose: Not Given Documented by: Magnesium Hydroxide (Magnesium Hydroxide 30 Ml Udc) 30 ml PO DAILY PRN PRN PRN Reason: Constipation Morphine Sulfate (Morphine (Oral Solution) 10mg/0.5ml Syringe) 10 mg SL/PO Q1H PRN PRN PRN Reason: Pain Score 6-10/10, shortness of breath Last Admin: 03/11/20 08:06 Dose: 10 mg Documented by: Nystatin (Nystatin 500,000 Unit/5 Ml Udc) 500,000 unit PO 4X/DAY [facility] Stop: 03/13/20 22:01 Last Admin: 03/11/20 08:05 Dose: Not Given Documented by: Ondansetron HCl (Ondansetron 4 Mg/2 Ml Vial) 4 mg IV Q8H PRN PRN PRN Reason: NAUSEA/VOMITING Prochlorperazine Edisylate (Prochlorperazine 10 Mg/2 Ml Vial) 5 mg IV Q4H PRN PRN PRN Reason: Breakthrough Nausea/Vomiting Psyllium Hydrophilic Mucilloid (Psyllium 1 Packet) 1 packet PO DAILY PRN PRN PRN Reason: Constipation Quetiapine Fumarate (Quetiapine 25 Mg Tablet) 50 mg PO BID PRN PRN PRN Reason: AGITATION Last Admin: 03/10/20 22:59 Dose: 50 mg Documented by: Senna/Docusate Sodium (Senna/Docusate Sodium 1 Tablet) 2 tablet PO BID PRN PRN PRN Reason: Constipation Sodium Chloride (0.9% Saline Lock 10 Ml Syringe) 10 - 40 ml IV UD PRN PRN Reason: SALINE FLUSH Last Admin: 03/11/20 01:24 Dose: 10 ml Documented by: Sodium Chloride (Sodium Chloride 0.65% 1 [place] F[place]on.Btl) 2 spray NASAL TID PRN PRN PRN Reason: NASAL DRYNESS Throat Lozenges (Benzocaine/Menthol 1 Lozenge) 1 lozenge MUCOUS MEM Q2H PRN PRN PRN Reason: SORE THROAT Last Admin: 03/10/20 07:54 Dose: 1 lozenge Documented by: STROKE Vital Signs/Narrative: Vital Signs Temp Pulse Resp BP Pulse Ox 03/11/20 08:03 100.5 F H 120 H 34 H 129/66 H 74 03/11/20 07:00 60 28 H 73 03/11/20 06:52 60 73 03/11/20 06:29 105 H 65 Medical Necessity - Tobacco Use Smoking Status: Never smoker - Patient listed is a tobacco user in the past however daughter Tlaa notes that he was never a smoker. Tobacco Use: Non-smoker Assessment/Plan All Active Problems Pneumonia due to COVID-19 virus (Acute) Respiratory failure (Acute) FREDY (acute kidney injury) (Acute) Acute respiratory failure with hypoxia (Acute) Cellulitis of right lower extremity (Acute) This 84 old gentleman with history of COPD not on home oxygen, coronary artery disease with pacemaker and other multiple comorbidities was admitted with fever chills, cough, shortness of breath worse on exertion, hypoxia, altered mental status, sore throat, chest tightness, fatigue and diaphoresis for several days. Patient was found 84% on room air, then 4 L of oxygen nasal cannula and finally on BiPAP after he did not improve. ABG showed respiratory acidosis with PCO2 85 and CO2 35. CTA chest reviewed. No pulmonary embolism. Bilateral groundglass opacity, predominantly basal consolidations, upper lobes subsegmental groundglass opacity, left upper lobe more than right upper lobe and small left pleural effusion 1. Acute hypoxic and hypercarbic combined respiratory failure secondary to COPD exacerbation and bilateral COVID-19 pneumonia: Patient is being admitted in ICU on BiPAP. Inflammatory markers are elevated. COVID-19 PCR positive. Procalcitonin 0.36. D-dimer 2.73. Aggressive bronchopulmonary hygiene. On high flow oxygen. ID consult and follow-up reviewed. Repeat ABG shows improvement of PCO2, 7.32/59/73/30 on BiPAP 50% FiO2. ABG suggestive of acute respiratory acidosis. Patient was treated with Lovenox, Decadron and remdesivir and bronchodilator. Completed remdesivir on 03/08. Patient was pronounced at 1149 hrs. on 03/11/2020. 2. Acute encephalopathy mainly metabolic and infectious etiologies: He fluctuated during the hospitalization. 3. Acute kidney injury versus underlying CKD stage 3: Patient estimated creatinine clearance was around 66, creatinine 0.9 in February 2016. BUN/creatinine elevated 40/1.79. Last BUN/creatinine 50/1.57. 4. CAD: Patient with history of CO and status post pacemaker status, serial troponin enzymes are elevated but plateaued 0.054, 0.0522, was 0.077. Patient denies chest pain. Twelve-lead EKG shows right bundle branch block, LAD, paced rhythm at 71 bpm. Patient was on aspirin medications were adjusted as per the clinical status. 5. Dementia with behavioral component unclear type with history of anxiety and depression: PT/OT/case management consultation for discharge planning, fall precautions and aspiration precautions. 6. Diabetes mellitus type II: A1c 5.7 shows good glucose control. Blood sugars are fairly controlled. 7. Seizure disorder: Patient with history of focal seizures, continue home lamotrigine regimen, fall precautions. 8. Hypertension: 9. Hyperlipidemia: 10. Other comorbidities include former tobacco use, obstructive sleep apnea former tobacco use: 11. DVT prophylaxis: SCDs, Lovenox. CODE STATUS DNR CC arrest no intubation Patient's daughter, POA Tala Middleton was called and informed about . Further action as per the protocol.
--- NOTE | 2020-03-11 11:49 | NURSING ---
Time of 11:49. packet completed. Awaiting call from [facility].
--- NOTE | 2020-03-11 12:03 | EXP.PCM_ITS ---
Preliminary Cause of Acute combined respiratory failure secondary bilateral COVID-19 pneumonia Date of Admission: 03/04/20 Date of : 03/11/20 - Principle Diagnosis Acute hypoxic and hypercarbic combined respiratory failure secondary to COPD exacerbation from bilateral COVID-19 pneumonia COPD exacerbation from bilateral COVID-19 pneumonia Bilateral COVID-19 pneumonia Acute encephalopathy mainly metabolic and infectious etiology on baseline dementia with behavioral component, anxiety and depression Acute kidney injury on CKD stage III Coronary artery disease. Diabetes mellitus type 2 Seizure disorder Other comorbidities include hypertension, dyslipidemia, former tobacco user, obstructive sleep apnea Problem List: Active and Suspected Problems Pneumonia due to COVID-19 virus (Acute) Respiratory failure (Acute) FREDY (acute kidney injury) (Acute) Acute respiratory failure with hypoxia (Acute) Diabetes mellitus, type II (Suspected) Former tobacco use (Suspected) Chronic obstructive pulmonary disease (COPD) (Suspected) Hospital Course This 84 old gentleman with history of COPD not on home oxygen, coronary artery disease with pacemaker and other multiple comorbidities was admitted with fever, chills, cough, shortness of breath worse on exertion, hypoxia, altered mental status, sore throat, chest tightness, fatigue and diaphoresis for several days. Patient was found 84% on room air, then 4 L of oxygen nasal cannula and finally on BiPAP after he did not improve. ABG showed respiratory acidosis with PCO2 85 and CO2 35. CTA chest reviewed. No pulmonary embolism. Bilateral groundglass opacity, p redominantly basal consolidations, upper lobes subsegmental groundglass opacity, left upper lobe more than right upper lobe and small left pleural effusion The patient was admitted in ICU on BiPAP. Diagnosis of acute hypoxic and hypercarbic combined respiratory failure secondary to COPD exacerbation from bilateral COVID-19 pneumonia. Inflammatory markers were elevated. COVID-19 PCR positive. Procalcitonin 0.36. ABG is sensitive of acute respiratory acidosis. Patient completed remdesivir on 03/08. On Lovenox, Decadron and bronchodilator. Patient was pronounced at 1149 hrs. Patient had another acute medical conditions including acute encephalopathy mainly metabolic/infectious etiology, acute kidney injury on CKD stage III. Other chronic comorbidities include coronary artery disease, dementia, diabetes mellitus type 2, seizure disorder, hypertension and dyslipidemia. Patient is DNR CC. Patient was pronounced at 1149 hrs. on March 11, 2020. Power of civil rights attorney, patient's daughter, Tala Middleton was called and informed. Inpatient E&M: [id number] [facility]
--- NOTE | 2020-03-11 12:05 | NURSING ---
Went to patient bedside. No respirations noted. No apical HR present. Dr. Hernández notified. Patient pronounced at 1149. See report for details.
== END 2020-03-11 11:49 | DRG 177 ==
LOC: ED 15:19 → PCU 15:23 → ICU 18:50 → MS2 03-10 14:11
PROVIDERS: Internal Medicine; Internal Medicine Infectious Disease; Admitting Provider Family Medicine; Emergency Provider Physician Assistant Medical; PCP Family Medicine; Visit Provider Internal Medicine
DX: U07.1 COVID-19 (principal); J12.89 Other viral pneumonia; J96.21 Acute and chronic respiratory failure with hypoxia; J96.22 Acute and chronic respiratory failure with hypercapnia; G93.41 Metabolic encephalopathy; J44.0 Chronic obstructive pulmonary disease with (acute) lower respiratory infection; J44.1 Chronic obstructive pulmonary disease with (acute) exacerbation; F03.91 Unspecified dementia, unspecified severity, with behavioral disturbance; N17.9 Acute kidney failure, unspecified; E87.2 Acidosis; F32.9 Major depressive disorder, single episode, unspecified; F41.9 Anxiety disorder, unspecified; I12.9 Hypertensive chronic kidney disease with stage 1 through stage 4 chronic kidney disease, or unspecified chronic kidney disease; N18.30 Chronic kidney disease, stage 3 unspecified; I25.10 Atherosclerotic heart disease of native coronary artery without angina pectoris; E11.22 Type 2 diabetes mellitus with diabetic chronic kidney disease; G40.909 Epilepsy, unspecified, not intractable, without status epilepticus; E78.5 Hyperlipidemia, unspecified; G47.33 Obstructive sleep apnea (adult) (pediatric); I45.10 Unspecified right bundle-branch block; I25.2 Old myocardial infarction; D63.1 Anemia in chronic kidney disease; B37.9 Candidiasis, unspecified; Z66 Do not resuscitate; Z95.0 Presence of cardiac pacemaker; Z79.4 Long term (current) use of insulin; Z79.899 Other long term (current) drug therapy; Z87.891 Personal history of nicotine dependence
CPT/HCPCS: 36415; 36600; 71045; 71275; 80053; 82728; 82803; 82962; 83036; 83605; 83615; 83735; 84145; 84484; 85025; 85027; 85379; 85610; 85730; 86140; 86850; 86900; 86901; 87040; 87086; 87449; 87633; 87635; 92507; 92526; 92610; 93005; 94002; 94003; 94640; 94660; 97116; 97162; 97165; 97530; 97535; 99251; 99285; J7030; J7050; Q9967; A4216; G0463; J1940; U0002